=== PATIENT | female | born 1935 | race Caucasian/White ===

== ENCOUNTER 2019-08-13 08:31 | Outpatient (CLI) | payer MEDICARE, SELFPAY ==
[2019-08-13 09:20] LABS: Hematocrit 39.7 % (35.0-42.0); Hemoglobin 12.7 g/dL (11.7-13.8); Mean Corpuscular Hemoglobin 27.9 pg (27.0-31.0); Mean Corpuscular Volume 87.3 fL (78.0-102.0); Mean Platelet Volume 10.7 fl (9.2-11.8); Platelet Count Result 221 K/mm3 (150-420); Red Blood Count 4.55 M/mm3 (4.20-5.40); Red Cell Distribution Width 13.9 % (11.6-14.4); White Blood Count 6.6 K/mm3 (4.8-10.8)
[2019-08-13 10:19] LABS: Alanine Aminotransferase 24 U/L (14-59); Albumin Level 3.7 g/dL (3.4-5.0); Alkaline Phosphatase 98 U/L (46-116); Aspartate Amino Transferase 23 U/L (15-37); Bilirubin,Total 0.3 mg/dL (0.00-1.00); Blood Urea Nitrogen 14 mg/dL (7-18); Calcium 8.9 mg/dL (8.5-10.1); Carbon Dioxide 25 mmol/L (21-32); Chloride 106 mmol/L (98-108); Cholesterol 127 mg/dL (0-200); Estimated Glomerular Filt Rate 55; Glucose 90 mg/dL (70-99); HDL Direct 65 mg/dL (40-60); LDL Cholesterol Calculated 49 mg/dL (<130); Osmolality Calculated 296 mOsm/kg (285-295); Sodium 143 mmol/L (136-145); Thyroid Stimulating Hormone 2.13 uIU/mL (0.36-3.74); Total Protein 7.3 g/dL (6.4-8.2); Triglycerides 64 mg/dL (0-150); Vitamin B12 275 pg/mL (193-986)
[2019-08-15 18:13] LABS: Vitamin D 25 Hydroxy 16 ng/mL (30-100)
== END 2019-08-13 08:32 | disposition home or self-care (01) ==
LOC: CHSLAB 08:40
PROVIDERS: PCP Nurse Practitioner Family; Visit Provider Nurse Practitioner Family
DX: E78.00 Pure hypercholesterolemia, unspecified (principal); R53.83 Other fatigue; I10 Essential (primary) hypertension; E55.9 Vitamin D deficiency, unspecified
CPT/HCPCS: 36415; 80053; 80061; 82306; 82607; 84443; 85027

== ENCOUNTER 2020-11-10 08:16 | Outpatient (CLI) | payer MEDICARE, SELFPAY ==
[2020-11-10 08:27] LABS: Hemoglobin 12.9 g/dL (11.7-13.8); Mean Corpuscular HGB Conc 32.3 g/dL (32.0-36.0); Mean Corpuscular Hemoglobin 28.4 pg (27.0-31.0); Mean Corpuscular Volume 88.1 fL (78.0-102.0); Mean Platelet Volume 9.9 fl (9.2-11.8); Platelet Count Result 214 K/mm3 (150-420); Red Blood Count 4.54 M/mm3 (4.20-5.40); Red Cell Distribution Width 14.3 % (11.6-14.4); White Blood Count 7.1 K/mm3 (4.8-10.8)
[2020-11-10 09:20] LABS: Alanine Aminotransferase 30 U/L (14-59); Albumin Level 3.6 g/dL (3.4-5.0); Alkaline Phosphatase 98 U/L (46-116); Anion Gap 7 mmol/L (8-16); Aspartate Amino Transferase 21 U/L (15-37); Bilirubin,Total 0.4 mg/dL (0.00-1.00); Blood Urea Nitrogen 19 mg/dL (7-18); Calcium 8.9 mg/dL (8.5-10.1); Carbon Dioxide 30 mmol/L (21-32); Chloride 105 mmol/L (98-108); Cholesterol 137 mg/dL (0-200); Estimated Glomerular Filt Rate 54; Glucose 102 mg/dL (70-99); HDL Direct 77 mg/dL (40-60); LDL Cholesterol Calculated 47 mg/dL (<130); Osmolality Calculated 296 mOsm/kg (285-295); Potassium 4.2 mmol/L (3.5-5.1); Sodium 142 mmol/L (136-145); Total Protein 6.9 g/dL (6.4-8.2); Triglycerides 65 mg/dL (0-150)
[2020-11-13 13:49] LABS: Vitamin D 25 Hydroxy 34 ng/mL (30-100)
== END 2020-11-10 08:17 | disposition home or self-care (01) ==
LOC: CHSLAB 08:19
PROVIDERS: PCP Family Medicine; Visit Provider Nurse Practitioner Family
DX: E55.9 Vitamin D deficiency, unspecified (principal); E78.00 Pure hypercholesterolemia, unspecified; I10 Essential (primary) hypertension
CPT/HCPCS: 36415; 80053; 80061; 82306; 85027

== ENCOUNTER 2021-10-22 13:44 | Outpatient (CLI) | payer MEDICARE, OTHER, SELFPAY ==
--- NOTE | ~2021-10-22 | XR_ITS ---
EXAMINATION: XR ankle RT min 3V DATE: 10/22/2021 14:10 INDICATION: Right ankle injury and pain and swelling. TECHNIQUE: 3 views of right ankle were obtained. COMPARISON: None. FINDINGS: There is an oblique fracture of distal fibula with medial aspect of the fracture line at th e level of the tibial plafond. The distal fracture fragment demonstrates 3 mm posterolateral displace ment. There is likely a fracture of the medial malleolus that is not well delineated. Joint spaces ar e normal. There is an enthesophyte at posterior aspect of calcaneal tuberosity. Ankle soft tissue swe lling is noted. IMPRESSION: 1. Bimalleolar ankle fracture. Reviewed, dictated and finalized at location B.
== END 2021-10-22 13:45 | disposition home or self-care (01) ==
LOC: CHSIMG 13:47
PROVIDERS: PCP Nurse Practitioner Family; Visit Provider Nurse Practitioner Family
DX: S93.401A Sprain of unspecified ligament of right ankle, initial encounter (principal)
CPT/HCPCS: 73610

== ENCOUNTER 2021-11-22 08:59 | Outpatient (CLI) | payer MEDICARE, OTHER, SELFPAY ==
--- NOTE | ~2021-11-22 | XR_ITS ---
EXAMINATION: XR ankle RT min 3V DATE: 11/22/2021 09:24 INDICATION: Follow-up right ankle fracture TECHNIQUE: Anteroposterior, oblique, mortise, and lateral views of the right ankle were obtained. COMPARISON: 10/26/2021 and 10/22/2021 FINDINGS: Unchanged 3 mm lateral displacement of an oblique fracture of the lateral malleolus. Subtle small luci unt of nonbridging callus formation along the proximal margin of the fracture. There is still readily discernible lucency along the fracture plane. Unchanged nondisplaced fracture extending transversely across the medial malleolus with minimal sclerosis along the margins of the still clearly discernibl e lucent fracture plane which is also consistent with early productive changes of healing. Unchanged prominent sclerosis at the medial side of the right talar dome. 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 Mild soft tissue swelling about the ankle. No ankle joint effusion. IMPRESSION: 1. Early healing of likely still ununited nondisplaced medial malleolar and minimally displaced later al malleolar fractures. 2. Unchanged sclerosis at the medial side of the talar dome which is of indeterminate etiology statis tically most likely either degenerative in etiology or sequela of old trauma. Reviewed, dictated and finalized at location B. IMPRESSION: 1. Early healing of likely still ununited nondisplaced medial malleolar and min imally displaced lateral malleolar fractures. 2. Unchanged sclerosis at the medial side of the talar dome which is of indeter minate etiology statistically most likely either degenerative in etiology or se quela of old trauma.
== END 2021-11-22 09:00 | disposition home or self-care (01) ==
LOC: CHSIMG 09:02
PROVIDERS: PCP Nurse Practitioner Family; Visit Provider Orthopaedic Surgery
DX: M25.571 Pain in right ankle and joints of right foot (principal); S82.54XD Nondisplaced fracture of medial malleolus of right tibia, subsequent encounter for closed fracture with routine healing; S82.61XD Displaced fracture of lateral malleolus of right fibula, subsequent encounter for closed fracture with routine healing
CPT/HCPCS: 73610

== ENCOUNTER 2021-12-13 12:50 | Outpatient (RCR) | payer MEDICARE, OTHER, SELFPAY ==
--- NOTE | 2021-12-13 14:12 | PTOPEVAL ---
Thank you for referring Leonela Carrero to [facility].? The patient is scheduled to be seen for therapy? __3__x/week for 9 visits. Please review, sign, date and return this plan of care OLIVE. I agree with and certify that the following plan of care is medically necessary. Referring Physician Date Admitting Provider: Attending Provider: Waqas Glez MD Referring Provider: *PT Outpatient Evaluation Start: 12/13/21 13:12 Freq: Status: Active Protocol: Document 12/13/21 13:12 KRISTI (Rec: 12/13/21 14:11 [email or web address]) Therapy Assessment Status Assessment Status Assessment Status Evaluation Evaluation Information Problem Diagnosis right bimalleolar fx of the ankle Onset 10/28/21 Subjective Information Pt. reports she was getting in Query Text:As Reported By Patient/ her daughters jeleilani. She Family reports lost her balance attempting to get into the jeep and injured the right foot. Pt. reports she was in a boot with no weight for a few weeks. She is currently in a protective shoe. She states that she has not worn a regular shoe on the right foot, but is concerned that she cannot due to swelling. She reports that she has a constant tenderness in the right ankle. She reports that her goal is to be able to wear a regular shoe and walk normal. Prior Level of Function Activity Level (Last 3 Months) Occupation retired Hand Dominance Right Activity of Daily Living Ability Independent Indoor/Home Mobility Independent Community Mobility Independent Stairs Ability Independent Functional Cognition (Planning, Shopping Independent , Taking Medications) Cooking Yes Cleaning Yes Laundry Yes Shopping Yes Driving Yes Pain Assessment Timing of Pain Assessment Timing of Pain Assessment Pre-Treatment Pain Scale Pain Scale Used Numeric (1 - 10) Self Report Pain Assessment Right Ankle(s) Reported Pain Level 6 Pain Score Pain Score 6: Self Report Interventions Used Interventions Used By Clinicians Exercise Lower Extremity Range o
--- NOTE | 2022-01-07 16:13 | PTOPEVAL ---
Thank you for referring Leonela Carrero to [facility].? The patient is scheduled to be seen for therapy? ____x/week for ___ weeks. Please review, sign, date and return this plan of care OLIVE. I agree with and certify that the following plan of care is medically necessary. Referring Physician Date Admitting Provider: Attending Provider: Waqas Glez MD Referring Provider: *PT Outpatient Evaluation Start: 12/13/21 13:12 Freq: Status: Active Protocol: Document 01/07/22 16:04 MOJGAN (Rec: 01/07/22 16:13 [email or web address]) Therapy Assessment Status Assessment Status Assessment Status Discharge Evaluation Information Problem Diagnosis right bimalleolar fx of the ankle Onset 10/28/21 Additional Evaluation Detail LEFS = 35% functionally declined Subjective Information patient reports she feels Query Text:As Reported By Patient/ good this date. she reports Family no pain in the R ankle. she reports she is walking without a limp, and is back to all prior level activities. she reports she is compliant with her HEP at home. Pain Assessment Timing of Pain Assessment Timing of Pain Assessment Assessment Self Report Self Report Pain Level 0 Pain Score Pain Score 0: Self Report Lower Extremity Range of Motion General Lower Extremity Range of Motion Gross Lower Extremity Range of Motion R ankle DF arom = 10 degrees Comments R ankle PF arom = 40 degrees R ankle INV arom = 20 degrees R ankle EV arom = 6 degrees Lower Extremity Muscle Strength Testing General Lower Extremity Strength Gross Lower Extremity Strength R ankle strength = 4+/5 overall Gait Assessment Gait Pattern Assessment Gait Pattern No Deviations/Normal Stair Climbing Assessment Stair Climbing Assessment Stair Climbing Comments reciprocal gait mechanics up and down steps General Exercise General Exercises Exercise Description Ther ex Query Text:Record Sets, Reps, -standing gastroc stretch x 3 Resistance, and Position minutes -standing hip abd x 25 ea juan m -standing hip ext x 25 ea juan m -PROM ankle all planes x5 min -re-evaluation 5 minutes Ther act -ambulation 1200ft -ambualtion up and down steps 1 flight
== END 2021-12-31 17:00 | disposition home or self-care (01) ==
LOC: CHSPT 12:50
PROVIDERS: Visit Provider Orthopaedic Surgery
DX: S82.841D Displaced bimalleolar fracture of right lower leg, subsequent encounter for closed fracture with routine healing (principal); S93.401D Sprain of unspecified ligament of right ankle, subsequent encounter
CPT/HCPCS: 97016; 97110; 97112; 97140; 97161; 97530

== ENCOUNTER 2021-12-20 08:52 | Outpatient (CLI) | payer MEDICARE, OTHER, SELFPAY ==
--- NOTE | ~2021-12-20 | XR_ITS ---
EXAMINATION: XR ankle RT min 3V INDICATION: Right ankle fracture follow-up TECHNIQUE: Four views of the right ankle are obtained. COMPARISON: 11/22/2021 FINDINGS: Again seen is an oblique fracture of the distal fibula extending to the level of the tibia. Minimal calcified callus is seen at the fracture site. The distal fracture fragment remains laterall y displaced by approximately 3 mm. There is a transverse fracture of the medial malleolus with minima l calcified callus formation. No new fracture is identified. Subtle sclerosis of the lateral talar do me is again noted and unchanged. There is moderate osteoarthritis of the foot and ankle. Calcified at herosclerosis is noted. IMPRESSION: 1. Oblique fracture of the distal fibula with slight increase in calcified callus. 2. Transverse fracture of the medial malleolus with increase in calcified callus. Reviewed, dictated and finalized at location A. IMPRESSION: 1. Oblique fracture of the distal fibula with slight increase in calcified call us. 2. Transverse fracture of the medial malleolus with increase in calcified callu s.
== END 2021-12-20 08:53 | disposition home or self-care (01) ==
LOC: CHSIMG 08:55
PROVIDERS: PCP Family Medicine; Visit Provider Orthopaedic Surgery
DX: M25.571 Pain in right ankle and joints of right foot (principal)
CPT/HCPCS: 73610

== ENCOUNTER 2022-01-17 08:16 | Outpatient (CLI) | payer MEDICARE, OTHER, SELFPAY ==
--- NOTE | ~2022-01-17 | XR_ITS ---
XR ankle RT min 3V DATE: 01/17/2022 08:47 INDICATION: Fracture follow-up TECHNIQUE: 3 views COMPARISON: 12/20/2021, 10/22/2021 right ankle FINDINGS: No interval change in position or alignment at the bimalleolar right ankle fracture since . The fracture lines are still evident, there is limited interval new bone formation. IMPRESSION: No significant change in position or alignment of bimalleolar ankle fracture Reviewed, dictated and finalized at location B.
== END 2022-01-17 08:17 | disposition home or self-care (01) ==
LOC: CHSIMG 08:19
PROVIDERS: PCP Family Medicine; Visit Provider Orthopaedic Surgery
DX: M25.571 Pain in right ankle and joints of right foot (principal); S82.841D Displaced bimalleolar fracture of right lower leg, subsequent encounter for closed fracture with routine healing
CPT/HCPCS: 73610

== ENCOUNTER 2022-05-17 22:03 | Emergency (ER) | payer MEDICARE, OTHER, SELFPAY ==
[2022-05-17] VITALS (9 sets, daily range): BP systolic 171–187; BP diastolic 57–73; PULSE 66–87; RESP 16–24; TEMP 36.8; O2SAT 97–100
--- NOTE | ~2022-05-17 | XR_ITS ---
EXAMINATION: XR chest 1V portable INDICATION: Cough and shortness of breath TECHNIQUE: Portable AP chest at 2043 hours COMPARISON: 03/24/2015 FINDINGS: There are minimal airspace opacities of the left lung base. A calcified right lung nodules consistent with old granulomatous disease. No pleural effusion or pneumothorax. The cardiomediastinal silhouette is normal. IMPRESSION: 1. Minimal left basilar airspace opacity which may be infectious or inflammatory. Recommend followup radiographs in 10-14 days after appropriate therapy to evaluate for improvement/resolution. Reviewed, dictated and finalized at location F. TURE METER OPERATOR IMPRESSION: 1. Minimal left basilar airspace opacity which may be infectious or inflammator y. Recommend followup radiographs in 10-14 days after appropriate therapy to ev aluate for improvement/resolution.
--- NOTE | 2022-05-17 22:12 | ED.SOB ---
HPI - SOB/Dyspnea General Chief Complaint: Shortness of Breath/Dyspnea Stated Complaint: trouble breathing Time Seen by Provider: 05/17/22 22:10 Source: patient Mode of arrival: ambulatory History of Present Illness HPI Narrative: 86-year-old female with a history smoking, hypertension, dyslipidemia, Raynaud's presents to the ER 1 day history of -- shortness of breath -- nonproductive cough -- chest tightness and wheezing Patient has been COVID and influenza vaccinated. MD elicited complaint: shortness of breath and cough Onset (ago): day(s) ( symptoms started today.) Exacerbating factors: nothing Relieving factors: nothing Associated symptoms: cough, wheezing and chest congestion Treatment prior to arrival: none Related Data Home oxygen amount: none Home Medications Medication Instructions Recorded Confirmed aspirin 81 mg tablet,delayed 81 mg PO DAILY 08/07/19 05/17/22 release (Adult Aspirin Regimen) fexofenadine 180 mg tablet 180 mg PO DAILY 11/03/20 05/17/22 (Juana Allergy) multivitamin with minerals 1 tablet PO DAILY 11/03/20 05/17/22 (Hair,Skin and Nails tablet) Allergies Allergy/AdvReac Type Severity Reaction Status Date / Time ethinyl estradiol Allergy Intermediate Unknown Verified 05/17/22 22:16 [Seasonale (91)] levonorgestrel Allergy Intermediate Unknown Verified 05/17/22 22:16 [Seasonale (91)] Review of Systems Review of Systems: All systems reviewed & are unremarkable except as noted in HPI and below Constitutional: Constitutional: Reports as per HPI and Reports no additional constitutional complaints Eyes: Eyes: Reports as per HPI and Reports no additional eye complaints ENT: Reports system reviewed and no additional complaints, except as documented and Reports as per HPI Cardiovascular: Cardiovascular: Reports as per HPI and Reports no additional cardiovascular complaints Respiratory: Respiratory: Reports as per HPI, Reports no additional respiratory complaints, Reports cough, Reports dyspnea and Reports wheezing Gastrointestinal: Gastrointestinal: Reports as per HPI and Reports no additional gastrointestinal complaints Genitourinary: Genitourinary: Reports no additional female genitourinary complaints Musculoskeletal: Musculoskeletal: Reports no additional musculoskeletal complaints and Reports as per HPI Integumentary/Breasts: Skin/Breast: Reports system reviewed and no additional complaints, except as docu and Reports as per HPI Neurologic: Reports system reviewed and no additional complaints, except as documented and Reports as per HPI Psychiatric: Psychiatric: Reports no additional psychiatric complaints and Reports as per HPI Endocrine: Endocrine: Reports no additional endocrine complaints and Reports as per HPI Hematologic/Lymphatic: Hematologic/Lymphatic: Reports no additional hematologic/lymphatic complaints and Reports as per HPI Allergic/Immunologic: Allergic/Immunologic: Reports no additional allergic/immunologic complaints and Reports as per HPI FOR[facility]LY [facility], [facility] Past Medical History Medical History Age-related cataract of both eyes Surgically removed with lens placement Hypercholesterolemia Hypertension Nicotine dependence Ovarian cyst Surgically removed Raynauds phenomenon Seasonal allergies Vitamin D deficiency Surgical History Surgical History History of cataract removal with insertion of prosthetic lens (~2014) History of removal of ovarian cyst Family History Family History Father Hypertension Social History Social History Smoking packs per day: 0.5 Smoking cigarettes per day: 10.0 Years smoked: 65 Smoking pack-years: 32.50 Smoking status: Current every day smoker Tobacco type: cigarettes Alcohol intake: current
--- NOTE | 2022-05-17 22:19 | ECG_ITS ---
Measurements Intervals [place] Rate: 66 P: 60 ND: 130 QRS: 62 QRSD: 68 T: 96 QT: 413 QTc: 433 Interpretive Statements SINUS RHYTHM NONSPECIFIC ST & T-WAVE ABNORMALITY- DIFFUSE LEADS BASELINE ARTIFACT- I, II, III, AVR, AVL, AVF, V1-V6 BORDERLINE ECG NO PREVIOUS ECG AVAILABLE FOR COMPARISON Electronically Signed On 05-18-2022 5:52:15 RACK CARRIER by Fernando Hickey D.O.
[2022-05-17] MEDS: IPRATROPIUM 0.5 MG/ALBUTEROL SULFATE 2.5 MG AMPUL.NEB 3 ML INHALATION (22:35)
[2022-05-17 22:44] LABS: Basophils Absolute Auto 0.08 K/mm3 (0.00-0.10); Basophils Percent Auto 1.1 % (0.0-1.0); Eosinophils Absolute Auto 0.13 K/mm3 (0.02-0.50); Eosinophils Percent Auto 1.8 % (1.0-6.0); Hematocrit 27.7 % (35.0-42.0); Hemoglobin 8.3 g/dL (11.7-13.8); Immature Granulocyte Absolute 0.03 K/mm3 (0.00-0.00); Immature Granulocyte Percent A 0.4 % (0.0-0.0); Lymphocytes Absolute Auto 2.14 K/mm3 (1.10-4.50); Lymphocytes Percent Auto 29.9 % (18.0-42.0); Mean Corpuscular Hemoglobin 23.4 pg (27.0-31.0); Mean Corpuscular Volume 78.2 fL (78.0-102.0); Mean Platelet Volume 9.3 fl (9.2-11.8); Monocytes Absolute Auto 0.88 K/mm3 (0.10-0.90); Monocytes Percent Auto 12.3 % (2.0-11.0); Neutrophils Absolute Auto 3.9 K/mm3 (1.7-7.2); Neutrophils Percent Auto 54.5 % (50.0-70.0); Platelet Count Result 265 K/mm3 (150-420); Red Blood Count 3.54 M/mm3 (4.20-5.40); Red Cell Distribution Width 17.8 % (11.6-14.4); White Blood Count 7.2 K/mm3 (4.8-10.8)
--- NOTE | 2022-05-17 22:45 | PC.NURSE ---
Educated pt on need for a urine sample. Pt states she does not need to urinate at this time. RN places a bedside commode and educates pt to hit the call light when she has to urinate. Pt also states she feels like she can take a deep breath after her breathing treatment.
[2022-05-17 22:56] LABS: INR 1.1; Prothrombin Time 12.2 Seconds (9.50-12.10)
[2022-05-17 23:04] LABS: Lactic Acid Reflex 1.9 mmol/L (0.4-2.0)
[2022-05-17 23:05] LABS: Alanine Aminotransferase 37 U/L (14-59); Albumin Level 2.9 g/dL (3.4-5.0); Alkaline Phosphatase 107 U/L (46-116); Anion Gap 9 mmol/L (8-16); Aspartate Amino Transferase 42 U/L (15-37); Bilirubin,Total 0.3 mg/dL (0.00-1.00); Blood Urea Nitrogen 19 mg/dL (7-18); Calcium 8.2 mg/dL (8.5-10.1); Carbon Dioxide 28 mmol/L (21-32); Chloride 109 mmol/L (98-108); Estimated CRCL calculation 29 ml/min; Estimated Glomerular Filt Rate 50; Glucose 109 mg/dL (70-99); NT Pro B Type Natriuretic Pept 1359 pg/mL (0-450); Osmolality Calculated 305 mOsm/kg (285-295); Potassium 3.2 mmol/L (3.5-5.1); Sodium 146 mmol/L (136-145); Total Protein 6.6 g/dL (6.4-8.2); Troponin I 16.6 ng/L (0.00-60.4)
[2022-05-17 23:20] LABS: Influenza A QL RT-PCR Negative (Negative); Influenza B QL RT-PCR Negative (Negative); SARS-CoV-2 RNA PCR Negative (Negative)
[2022-05-17 23:22] LABS: RSV RNA, RT-PCR Negative (Negative)
[2022-05-17 23:34] LABS: Appearance Urine Clear (Clear); Bilirubin Urine Negative (Negative); Blood Urine 2+ (Negative); Glucose Urine UA Negative (Negative); Ketones Urine Negative (Negative); Leukocyte Esterase Ur 1+ (Negative); Nitrate Urine Negative (Negative); Protein Urine Negative (Negative); Specific Grav Ur 1.015 (1.010-1.020); Urobilinogen Urine 0.2 mg/dL (0.2-1.0)
[2022-05-17 23:41] LABS: Add Urine Microscopic? YES; Bacteria Urine Trace /hpf; Color Urine Light Yellow (Yellow); Squamous Epithelial Cell Urine Rare /hpf (Few)
[2022-05-17] MEDS: AZITHROMYCIN 250 MG TABLET 500 MG PO (23:45)
[2022-05-17] MEDS: ALBUTEROL SULFATE (*SP) INHALER 2 PUFF INHALATION (23:55)
[2022-05-18 00:02] VITALS: BP 161/60; PULSE 64; RESP 18; TEMP 36.5; O2SAT 96
== END 2022-05-18 00:05 | disposition home or self-care (01) ==
PROVIDERS: Emergency Provider Internal Medicine Critical Care Medicine; PCP Family Medicine
DX: J44.1 Chronic obstructive pulmonary disease with (acute) exacerbation (principal); N18.31 Chronic kidney disease, stage 3a; D64.9 Anemia, unspecified; Z20.822 Contact with and (suspected) exposure to COVID-19; E78.00 Pure hypercholesterolemia, unspecified; I10 Essential (primary) hypertension; E55.9 Vitamin D deficiency, unspecified; F17.200 Nicotine dependence, unspecified, uncomplicated
CPT/HCPCS: 36415; 71045; 80053; 81001; 83605; 83880; 84484; 85025; 85610; 87637; 93005; 94640; 99284; A9270

== ENCOUNTER 2022-09-29 12:11 | Outpatient (CLI) | payer MEDICARE, OTHER, SELFPAY ==
--- NOTE | ~2022-09-29 | XR_ITS ---
XR chest 2V DATE: 09/29/2022 12:34 INDICATION: Shortness of breath for one month. History of bronchitis. TECHNIQUE: PA and lateral views COMPARISON: 05/17/2022 portable AP chest FINDINGS: Normal heart size. Aortic arch calcification. No hilar or mediastinal enlargement. There is old pulmonary granulomatous disease. No pulmonary infiltrate or consolidation, pleural effus ion or pulmonary vascular congestion or pneumothorax is detected. Diffuse osteopenia. There is extensive abdominal aortic calcification, without apparent aneurysm IMPRESSION: No active cardiopulmonary disease Abdominal and thoracic aortic atherosclerosis Reviewed, dictated and finalized at location L.
[2022-09-29 12:23] LABS: Hematocrit 26.7 % (35.0-42.0); Hemoglobin 7.3 g/dL (11.7-13.8); Mean Corpuscular HGB Conc 27.3 g/dL (32.0-36.0); Mean Corpuscular Hemoglobin 17.5 pg (27.0-31.0); Mean Platelet Volume 9.5 fl (9.2-11.8); Platelet Count Result 348 K/mm3 (150-420); Red Blood Count 4.17 M/mm3 (4.20-5.40); Red Cell Distribution Width 19.9 % (11.6-14.4); White Blood Count 7.4 K/mm3 (4.8-10.8)
[2022-09-29 12:51] LABS: Alanine Aminotransferase 18 U/L (14-59); Albumin Level 3.2 g/dL (3.4-5.0); Alkaline Phosphatase 137 U/L (46-116); Anion Gap 12 mmol/L (8-16); Aspartate Amino Transferase 22 U/L (15-37); Bilirubin,Total 0.3 mg/dL (0.00-1.00); Blood Urea Nitrogen 17 mg/dL (7-18); Calcium 8.6 mg/dL (8.5-10.1); Carbon Dioxide 27 mmol/L (21-32); Chloride 106 mmol/L (98-108); Estimated Glomerular Filt Rate > 60; Glucose 95 mg/dL (70-99); NT Pro B Type Natriuretic Pept 1274 pg/mL (0-450); Osmolality Calculated 301 mOsm/kg (285-295); Sodium 145 mmol/L (136-145); Total Protein 7.4 g/dL (6.4-8.2); Troponin I 26.7 ng/L (0.00-60.4)
== END 2022-09-29 12:12 | disposition home or self-care (01) ==
LOC: CHSLAB 12:13
PROVIDERS: PCP Family Medicine; Visit Provider Family Medicine
DX: R06.00 Dyspnea, unspecified (principal); I70.0 Atherosclerosis of aorta
CPT/HCPCS: 36415; 71046; 80053; 83880; 84484; 85027

== ENCOUNTER 2022-10-01 10:03 | Outpatient (CLI) | payer MEDICARE, OTHER, SELFPAY ==
[2022-10-01 10:20] LABS: Occult Blood Negative (Negative)
== END 2022-10-01 10:04 | disposition home or self-care (01) ==
LOC: CHSLAB 10:04
PROVIDERS: PCP Family Medicine; Visit Provider Family Medicine
DX: R19.7 Diarrhea, unspecified (principal)
CPT/HCPCS: 82272

== ENCOUNTER 2022-10-04 10:16 | Outpatient (CLI) | payer MEDICARE, OTHER, SELFPAY ==
[2022-10-04 10:31] LABS: Basophils Absolute Auto 0.12 K/mm3 (0.00-0.10); Basophils Percent Auto 1.6 % (0.0-1.0); Eosinophils Absolute Auto 0.16 K/mm3 (0.02-0.50); Eosinophils Percent Auto 2.1 % (1.0-6.0); Hematocrit 28.4 % (35.0-42.0); Hemoglobin 7.6 g/dL (11.7-13.8); Immature Granulocyte Absolute 0.04 K/mm3 (0.00-0.00); Immature Granulocyte Percent A 0.5 % (0.0-0.0); Lymphocytes Absolute Auto 1.54 K/mm3 (1.10-4.50); Lymphocytes Percent Auto 20.4 % (18.0-42.0); Mean Corpuscular HGB Conc 26.8 g/dL (32.0-36.0); Mean Corpuscular Hemoglobin 17.6 pg (27.0-31.0); Mean Corpuscular Volume 65.9 fL (78.0-102.0); Mean Platelet Volume 9.3 fl (9.2-11.8); Monocytes Absolute Auto 0.79 K/mm3 (0.10-0.90); Monocytes Percent Auto 10.5 % (2.0-11.0); Neutrophils Absolute Auto 4.9 K/mm3 (1.7-7.2); Neutrophils Percent Auto 64.9 % (50.0-70.0); Platelet Count Result 355 K/mm3 (150-420); Red Blood Count 4.31 M/mm3 (4.20-5.40); Red Cell Distribution Width 22.7 % (11.6-14.4); White Blood Count 7.5 K/mm3 (4.8-10.8)
[2022-10-04 10:49] LABS: Iron 109 ug/dL (50-170); Percent Iron Saturation 31 % (12-57)
--- NOTE | 2022-10-05 11:56 | WPDPFTINT ---
PFT Procedure Performed PFT Procedure Performed Spirometry with Pre/Post Bronchodilator Plethysmography (Lung Vol) Diffusing Cap (DLCO) Flow Vol Loop PFT Interpretation DOS: 10/04/2022 REQUESTING: Dr Liz REASON FOR TESTING: Dyspnea PULMONARY FUNCTION TESTS Spirometry: Pre bronchodilator FEV1 is 1.34 L, 84%, normal. Pre bronchodilator FVC is 1.94 L, 83%. The FEV1/ FVC ratio is 69% which is borderline low. After bronchodilator administration there is a 5% increase in the FEV1, 1.41 L and there was a 6% increase in the FVC, 2.06 L. the FEV1/ FVC ratio after bronchodilators also 69%. Lung volumes: Total lung capacity is 4.6 L, 102% predicted, normal. Residual volume is 2.60 L, 131% predicted. This is consistent with mild air trapping. RV/TLC is 56%, elevated. Airway resistance 341%. Diffusion: DLCO is 10.1, 65% predicted. DLCO/VA is 2.41, 75%, normal. Flow volume loop: There is coving of the expiratory limb consistent with airflow obstruction. IMPRESSION: This study shows borderline mild obstructive ventilatory impairment without response to bronchodilator, mild air trapping and normal diffusion when corrected for alveolar volume. Lack of response to bronchodilator should not preclude use if clinically indicated. There are no prior studies for comparison. Macy Hardin MD
== END 2022-10-04 10:17 | disposition home or self-care (01) ==
LOC: CHSLAB 10:20
PROVIDERS: PCP Family Medicine; Visit Provider Nurse Practitioner Family
DX: D50.9 Iron deficiency anemia, unspecified (principal); R06.00 Dyspnea, unspecified; R94.2 Abnormal results of pulmonary function studies
CPT/HCPCS: 36415; 83540; 83550; 85025; 94060; 94726; 94729

== ENCOUNTER 2022-10-07 12:16 | Outpatient (CLI) | payer MEDICARE, OTHER, SELFPAY ==
--- NOTE | 2022-10-07 12:22 | ECHO_ITS ---
Patient Info Name: Leonela Carrero Age: 86 years : 1935 Gender: Female Ht: 63 in Wt: 128 lbs BSA: 1.61 m2 HR: 64 bpm BP: 164 / 68 mmHg Technical Quality: Good Exam Date: 10/07/2022 12:16 PM Exam Location: [facility] Patient Status: Outpatient Admit Date: 10/07/2022 Staff Ordering Physician: Cisco Liz DO Business Development Director: Vijay Bautista RDCS, RT Attending Provider: Cisco Liz DO Referring Physician: Shalonda PRESSLEY; Exam Type: CA echo doppler color flow Study Info Indications R06.00 - Dyspnea, unspecified Complete two-dimensional, color flow and Doppler transthoracic echocardiogram is performed. Strain analysis performed. Summary 1. Complete two-dimensional, color flow and Doppler transthoracic echocardiogram is performed. 2. Left ventricular chamber dimension is normal. 3. Left ventricular systolic function is normal, estimated at 60-65%. 4. There is mild concentric increased left ventricular wall thickness. 5. The left ventricular diastolic function is grade I diastolic dysfunction. 6. E/e' 16 is elevated. 7. Global longitudinal strain is normal at -20.4%. 8. Left atrial chamber dimension is mildly enlarged. 9. There is moderate aortic valve sclerosis. 10. There is mild aortic valve stenosis with a peak velocity of 180 cm/s, mean gradient of 7 mmHg, and aortic valve area of 1.5 cm2. 11. There is mild to moderate mitral valve regurgitation. 12. No pulmonary hypertension, estimated pulmonary arterial systolic pressure is 33 mmHg. Left Ventricle Global longitudinal strain is normal at -20.4%. E/e' 16 is elevated. Left ventricular chamber dimension is normal. Left ventricular systolic function is normal, estimated at 60-65%. There is mild concentric increased left ventricular wall thickness. The left ventricular diastolic function is grade I diastolic dysfunction. Right Ventricle Right ventricular systolic function is normal and with normal TAPSE 2.2 cm. Right ventricular chamber dimension is normal. Left Atria Left atrial chamber dimension is mildly enlarged. Right Atria Right atrial chamber dimension is normal. Aortic Valve The aortic valve is trileaflet. There is moderate aortic valve sclerosis. There is mild aortic valve stenosis with a peak velocity of 180 cm/s, mean gradient of 7 mmHg, and aortic valve area of 1.5 cm2. There is no aortic valve regurgitation. Pulmonic Valve There is no pulmonic regurgitation. Mitral Valve There is no mitral valve stenosis. There is mild to moderate mitral valve regurgitation. Tricuspid Valve There is no tricuspid valve regurgitation. No pulmonary hypertension, estimated pulmonary arterial systolic pressure is 33 mmHg. Pericardium/Pleural There is no pericardial effusion. Inferior Vena Cava Normal inferior vena cava with >50% collapse upon inspiration consistent with normal right atrial pressure, 5 mmHg. Aorta The aortic root size at the sinus of Valsalva is normal. Left Ventricular Outflow Tract Name Value Normal LVOT 2D LVOT Diameter 1.9 cm LVOT Doppler LVOT Peak Velocity 104 cm/s LVO
== END 2022-10-07 12:17 | disposition home or self-care (01) ==
LOC: CHSIMG 12:18
PROVIDERS: PCP Family Medicine; Visit Provider Family Medicine
DX: R06.00 Dyspnea, unspecified (principal); I08.0 Rheumatic disorders of both mitral and aortic valves
CPT/HCPCS: 93306

== ENCOUNTER 2022-11-22 14:22 | Outpatient (CLI) | payer MEDICARE, OTHER, SELFPAY ==
[2022-11-22 14:52] LABS: Basophils Absolute Auto 0.1 K/mm3 (0.0-0.1); Basophils Percent Auto 1.2 % (0.2-1.2); Eosinophils Absolute Auto 0.1 K/mm3 (0-0.3); Eosinophils Percent Auto 1.7 % (0-4.4); Hematocrit 39.4 % (37.0-47.0); Hemoglobin 12.2 g/dL (12.0-15.0); Immature Granulocyte Absolute 0.03 K/mm3 (0.00-0.031); Immature Granulocyte Percent A 0.4 % (0-0.5); Immature Platelet Fraction Pct 4.3 % (0.9-11.2); Lymphocytes Absolute Auto 1.62 K/mm3 (0.9-3.2); Lymphocytes Percent Auto 21.7 % (18.3-44.2); Mean Corpuscular Hemoglobin 24.9 pg (26-34); Mean Corpuscular Volume 80.6 fl (80-100); Mean Platelet Volume 10.3 fl (7.4-10.4); Monocytes Absolute Auto 0.7 K/mm3 (0.1-0.6); Monocytes Percent Auto 9.4 % (2.6-8.5); Neutrophils Absolute Auto 4.9 K/mm3 (1.3-6.7); Neutrophils Percent Auto 65.6 % (45.5-73.1); Platelet Count Result 253 k/mm3 (150-375); Red Blood Count 4.89 M/mm3 (4.2-5.4); White Blood Count 7.5 K/mm3 (4.5-10.0)
[2022-11-22 14:54] LABS: Anisocytosis 1+ (NORMAL); Ovalocytes 1+ (NORMAL); Platelet Estimate Adequate (Adequate); Schistocytes None Seen (NORMAL)
[2022-11-22 14:55] LABS: Hypochromasia 1+ (NORMAL); Poikilocytosis 1+ (NORMAL)
[2022-11-22 16:27] LABS: Iron 91 ug/dL (37-170)
[2022-11-22 16:29] LABS: Alanine Aminotransferase 29 U/L (6-35); Albumin Level 4.4 g/dL (3.5-5.1); Alkaline Phosphatase 112 U/L (38-126); Anion Gap 8 mmol/L (8-16); Aspartate Amino Transferase 41 U/L (14-36); Bilirubin,Total 0.3 mg/dL (0.2-1.3); Blood Urea Nitrogen 19 mg/dL (7-17); Carbon Dioxide 26 mmol/L (22-30); Chloride 105 mmol/L (98-107); Estimated Glomerular Filt Rate > 60; Glucose 100 mg/dL (65-110); Lactate Dehydrogenase 223 U/L (120-246); Potassium 3.8 mmol/L (3.4-5.0); Sodium 139 mmol/L (137-145)
[2022-11-22 16:36] LABS: Percent Iron Saturation 29 % (20-50)
[2022-11-22 19:24] LABS: Folic Acid 12.1 ng/mL (2.76->20)
[2022-11-26 06:27] LABS: Methylmalonic Acid 197 nmol/L (87-318)
[2022-11-29 16:35] LABS: Hemoglobin 12.3 g/dL (11.7-15.5); MCH 24.7 pg (27.0-33.0); MCV 78.5 fL (80.0-100.0); Red Blood Cell Count 4.97 Mill/uL (3.80-5.10)
== END 2022-11-22 14:23 | disposition home or self-care (01) ==
LOC: ANHLAB 14:25
PROVIDERS: PCP Family Medicine; Visit Provider Internal Medicine Hematology & Oncology
DX: D64.9 Anemia, unspecified (principal)
CPT/HCPCS: 36415; 80053; 82607; 82728; 82746; 83021; 83540; 83550; 83615; 83921; 84238; 85025; 85055

== ENCOUNTER 2023-04-10 13:16 | Outpatient (CLI) | payer MEDICARE, SELFPAY ==
[2023-04-10 13:35] LABS: Basophils Absolute Auto 0.08 K/mm3 (0.00-0.10); Basophils Percent Auto 1.1 % (0.0-1.0); Eosinophils Percent Auto 2.8 % (1.0-6.0); Hematocrit 39.5 % (35.0-42.0); Hemoglobin 13.1 g/dL (11.7-13.8); Immature Granulocyte Absolute 0.03 K/mm3 (0.00-0.00); Immature Granulocyte Percent A 0.4 % (0.0-0.0); Lymphocytes Absolute Auto 1.95 K/mm3 (1.10-4.50); Lymphocytes Percent Auto 26.8 % (18.0-42.0); Mean Corpuscular HGB Conc 33.2 g/dL (32.0-36.0); Mean Corpuscular Hemoglobin 31.1 pg (27.0-31.0); Mean Corpuscular Volume 93.8 fL (78.0-102.0); Mean Platelet Volume 10.5 fl (9.2-11.8); Monocytes Absolute Auto 0.94 K/mm3 (0.10-0.90); Monocytes Percent Auto 12.9 % (2.0-11.0); Neutrophils Absolute Auto 4.1 K/mm3 (1.7-7.2); Platelet Count Result 219 K/mm3 (150-420); Red Blood Count 4.21 M/mm3 (4.20-5.40); Red Cell Distribution Width 14.2 % (11.6-14.4); White Blood Count 7.3 K/mm3 (4.8-10.8)
[2023-04-10 14:31] LABS: Ferritin 44 ng/mL (8-252); Folic Acid 17.8 ng/mL (8.6->20); Iron 60 ug/dL (50-170); Percent Iron Saturation 21 % (12-57); Vitamin B12 973 pg/mL (193-986)
== END 2023-04-10 13:17 | disposition home or self-care (01) ==
LOC: CHSLAB 13:19
PROVIDERS: PCP Family Medicine; Visit Provider Internal Medicine Hematology & Oncology
DX: D64.9 Anemia, unspecified (principal)
CPT/HCPCS: 36415; 82607; 82728; 82746; 83540; 83550; 85025

== ENCOUNTER 2023-04-14 08:09 | Outpatient (CLI) | payer MEDICARE, OTHER, SELFPAY ==
--- NOTE | ~2023-04-14 | US_ITS ---
EXAMINATION: US arterial ankle brachial ind DATE: 04/14/2023 08:39 INDICATION: Peripheral vascular disease. TECHNIQUE: Segmental pressures and plethysmographic and Doppler waveforms of the brachial and lower e xtremity arteries were obtained. COMPARISON: None. FINDINGS: Right and left brachial artery pressures of 135 mm Hg and 137 mm Hg, respectively, are concordant (no rmal difference <= 30 mmHg). The right ankle-brachial index (DAVID) is 0.58 (normal >= 0.9-1.0). The right great toe-brachial index (TBI) is 0.18 (normal >= 0.65). Arterial Doppler waveforms are monophasic in posterior tibial artery not detected in dorsalis pedis. The left DAVID is 0.36. The left TBI is 0.26. Arterial Doppler waveforms are monophasic and posterior t ibial artery not detected in dorsalis pedis. IMPRESSION: 1. Moderately decreased right DAVID and severely decreased left DAVID, consistent with arterial occlusive disease. Reviewed, dictated and finalized at location A. IMPRESSION: 1. Moderately decreased right DAVID and severely decreased left DAVID, consistent w ith arterial occlusive disease.
== END 2023-04-14 08:10 | disposition home or self-care (01) ==
LOC: CHSIMG 08:12
PROVIDERS: PCP Family Medicine; Visit Provider Family Medicine
DX: I73.9 Peripheral vascular disease, unspecified (principal)
CPT/HCPCS: 93922

== ENCOUNTER 2023-09-05 15:34 | Outpatient (CLI) | payer MEDICARE, SELFPAY ==
[2023-09-05 16:34] LABS: Basophils Absolute Auto 0.07 K/mm3 (0.00-0.10); Basophils Percent Auto 0.9 % (0.0-1.0); Eosinophils Absolute Auto 0.22 K/mm3 (0.02-0.50); Eosinophils Percent Auto 2.8 % (1.0-6.0); Hemoglobin 13.8 g/dL (11.7-13.8); Immature Granulocyte Absolute 0.03 K/mm3 (0.00-0.00); Immature Granulocyte Percent A 0.4 % (0.0-0.0); Lymphocytes Absolute Auto 1.86 K/mm3 (1.10-4.50); Lymphocytes Percent Auto 23.4 % (18.0-42.0); Mean Corpuscular HGB Conc 32.9 g/dL (32.0-36.0); Mean Corpuscular Hemoglobin 29.2 pg (27.0-31.0); Mean Platelet Volume 10.9 fl (9.2-11.8); Monocytes Percent Auto 12.6 % (2.0-11.0); Neutrophils Absolute Auto 4.8 K/mm3 (1.7-7.2); Neutrophils Percent Auto 59.9 % (50.0-70.0); Platelet Count Result 223 K/mm3 (150-420); Red Blood Count 4.72 M/mm3 (4.20-5.40); Red Cell Distribution Width 13.2 % (11.6-14.4); White Blood Count 7.9 K/mm3 (4.8-10.8)
[2023-09-05 17:00] LABS: Alanine Aminotransferase 32 U/L (14-59); Alkaline Phosphatase 96 U/L (46-116); Anion Gap 10 mmol/L (8-16); Aspartate Amino Transferase 23 U/L (15-37); Bilirubin,Total 0.3 mg/dL (0.00-1.00); Blood Urea Nitrogen 25 mg/dL (7-18); Calcium 8.7 mg/dL (8.5-10.1); Carbon Dioxide 28 mmol/L (21-32); Chloride 101 mmol/L (98-108); Cholesterol 156 mg/dL (0-200); Estimated Glomerular Filt Rate 48; Glucose 85 mg/dL (70-99); HDL Direct 68 mg/dL (40-60); Iron 53 ug/dL (50-170); LDL Cholesterol Calculated 67 mg/dL (<130); Magnesium 2.1 mg/dL (1.8-2.4); Osmolality Calculated 291 mOsm/kg (285-295); Potassium 4.3 mmol/L (3.5-5.1); Sodium 139 mmol/L (136-145); Total Protein 7.6 g/dL (6.4-8.2); Triglycerides 103 mg/dL (0-150)
[2023-09-08 13:14] LABS: Vitamin D 25 Hydroxy 37 ng/mL (30-100)
== END 2023-09-05 15:35 | disposition home or self-care (01) ==
LOC: CHSLAB 15:36
PROVIDERS: PCP Family Medicine; Visit Provider Nurse Practitioner Family
DX: Z13.6 Encounter for screening for cardiovascular disorders (principal); E78.00 Pure hypercholesterolemia, unspecified; D64.9 Anemia, unspecified; D50.9 Iron deficiency anemia, unspecified; Z79.899 Other long term (current) drug therapy; E55.9 Vitamin D deficiency, unspecified; R42 Dizziness and giddiness
CPT/HCPCS: 36415; 80053; 80061; 82306; 83540; 83735; 85025

== ENCOUNTER 2023-10-11 09:32 | Outpatient (CLI) | payer MEDICARE, SELFPAY ==
[2023-10-11 09:49] LABS: Basophils Absolute Auto 0.11 K/mm3 (0.00-0.10); Basophils Percent Auto 1.5 % (0.0-1.0); Eosinophils Absolute Auto 0.25 K/mm3 (0.02-0.50); Eosinophils Percent Auto 3.4 % (1.0-6.0); Hemoglobin 12.3 g/dL (11.7-13.8); Immature Granulocyte Absolute 0.03 K/mm3 (0.00-0.00); Immature Granulocyte Percent A 0.4 % (0.0-0.0); Lymphocytes Absolute Auto 1.45 K/mm3 (1.10-4.50); Lymphocytes Percent Auto 19.8 % (18.0-42.0); Mean Corpuscular HGB Conc 31.5 g/dL (32-36); Mean Corpuscular Hemoglobin 28.8 pg (27.0-31.0); Mean Corpuscular Volume 91.3 fL (78.0-102.0); Mean Platelet Volume 10.1 fl (9.2-11.8); Monocytes Absolute Auto 0.97 K/mm3 (0.10-0.90); Monocytes Percent Auto 13.3 % (2.0-11.0); Neutrophils Absolute Auto 4.51 K/mm3 (1.70-7.20); Neutrophils Percent Auto 61.6 % (50.0-70.0); Platelet Count Result 221 K/mm3 (150-420); Red Blood Count 4.27 M/mm3 (4.20-5.40); Red Cell Distribution Width 14.6 % (11.6-14.4); White Blood Count 7.3 K/mm3 (4.8-10.8)
[2023-10-11 15:29] LABS: Anion Gap 9 mmol/L (4-12); Blood Urea Nitrogen 25 mg/dL (7-18); Calcium 8.2 mg/dL (8.5-10.1); Carbon Dioxide 25 mmol/L (21-32); Chloride 107 mmol/L (98-108); Estimated Glomerular Filt Rate 44; Ferritin 130 ng/mL (8-252); Glucose 96 mg/dL (70-99); Iron 101 ug/dL (50-170); Osmolality Calculated 296 mOsm/kg (285-295); Percent Iron Saturation 40 % (12-57); Potassium 4.2 mmol/L (3.5-5.1); Sodium 141 mmol/L (136-145); Vitamin B12 1671 pg/mL (193-986)
== END 2023-10-11 09:33 | disposition home or self-care (01) ==
LOC: CHSLAB 09:34
PROVIDERS: PCP Family Medicine; Visit Provider Internal Medicine Hematology & Oncology
DX: D64.9 Anemia, unspecified (principal)
CPT/HCPCS: 36415; 80048; 82607; 82728; 82746; 83540; 83550; 85025

== ENCOUNTER 2024-02-26 08:34 | Outpatient (CLI) | payer MEDICARE, OTHER, SELFPAY ==
--- NOTE | ~2024-02-26 | CT_ITS ---
Clinical Indication: Pulmonary nodule CT Scan of the Chest with Contrast: Technique: Contiguous sections were acquired throughout the chest after intravenous administration of 75 cc of Omnipaque 350. Dose reduction technique was used on this scan by utilizing automated exposu re control and iterative reconstruction technique. The dose-length product (DLP) was 125.11 mGy-cm. Findings: There is no evidence of any significant mediastinal, hilar or axillary lymphadenopathy. There is no f illing defect in the pulmonary arterial tree to suggest pulmonary embolus. There is no evidence of ao rtic dissection or aneurysm. There are atherosclerotic calcifications of the aorta. There is no evidence of pleural or pericardial effusion. Calcified right upper lobe granuloma versus calcified pleural plaque present. 2 mm probable right low er lobe calcified granuloma present. Focal groundglass opacity present peripherally in the left lower lobe (axial image 59). Images through the upper abdomen reveal [id number] hiatal hernia. Impression: Calcified granulomas and/or pleural plaque, as above. Groundglass opacity in the peripheral left lower lobe, most likely hypoventilatory change. Correlate for focal pneumonitis. Consider follow-up exam to reassess, as indicated. Reviewed, dictated and finalized at location . Impression: Calcified granulomas and/or pleural plaque, as above. Groundglass opacity in the peripheral left lower lobe, most likely hypoventilat ory change. Correlate for focal pneumonitis. Consider follow-up exam to reasses s, as indicated.
[2024-02-26 08:58] LABS: Estimated Glomerular Filt Rate 36
== END 2024-02-26 08:35 | disposition home or self-care (01) ==
LOC: CHSIMG 08:36
PROVIDERS: PCP Nurse Practitioner Family; Visit Provider Nurse Practitioner Family
DX: R91.1 Solitary pulmonary nodule (principal); R91.8 Other nonspecific abnormal finding of lung field
CPT/HCPCS: 71260; Q9967

== ENCOUNTER 2024-04-10 09:04 | Outpatient (CLI) | payer MEDICARE, SELFPAY ==
[2024-04-10 09:53] LABS: Basophils Absolute Auto 0.05 K/mm3 (0.00-0.10); Basophils Percent Auto 0.7 % (0.0-1.0); Eosinophils Absolute Auto 0.15 K/mm3 (0.02-0.50); Hematocrit 35.4 % (35.0-42.0); Hemoglobin 12.1 g/dL (11.7-13.8); Immature Granulocyte Absolute 0.03 K/mm3 (0.00-0.00); Immature Granulocyte Percent A 0.4 % (0.0-0.0); Lymphocytes Absolute Auto 1.51 K/mm3 (1.10-4.50); Lymphocytes Percent Auto 20.2 % (18.0-42.0); Mean Corpuscular HGB Conc 34.2 g/dL (32-36); Mean Corpuscular Hemoglobin 30.8 pg (27.0-31.0); Mean Corpuscular Volume 90.1 fL (78.0-102.0); Mean Platelet Volume 9.9 fl (9.2-11.8); Monocytes Absolute Auto 0.86 K/mm3 (0.10-0.90); Monocytes Percent Auto 11.5 % (2.0-11.0); Neutrophils Absolute Auto 4.89 K/mm3 (1.70-7.20); Neutrophils Percent Auto 65.2 % (50.0-70.0); Platelet Count Result 211 K/mm3 (150-420); Red Blood Count 3.93 M/mm3 (4.20-5.40); White Blood Count 7.5 K/mm3 (4.8-10.8)
[2024-04-10 11:12] LABS: Anion Gap 9 mmol/L (4-12); Blood Urea Nitrogen 25 mg/dL (7-18); Calcium 8.9 mg/dL (8.5-10.1); Carbon Dioxide 25 mmol/L (21-32); Chloride 106 mmol/L (98-108); Estimated Glomerular Filt Rate 45; Ferritin 136 ng/mL (8-252); Folic Acid 8.9 ng/mL (8.6->20); Glucose 87 mg/dL (70-99); Iron 62 ug/dL (50-170); Osmolality Calculated 293 mOsm/kg (285-295); Percent Iron Saturation 27 % (12-57); Potassium 4.4 mmol/L (3.5-5.1); Sodium 140 mmol/L (136-145); Vitamin B12 1531 pg/mL (193-986)
== END 2024-04-10 09:05 | disposition home or self-care (01) ==
PROVIDERS: PCP Family Medicine; Visit Provider Internal Medicine Hematology & Oncology
DX: D64.9 Anemia, unspecified (principal)
CPT/HCPCS: 36415; 80048; 82607; 82728; 82746; 83540; 83550; 85025

== ENCOUNTER 2024-12-24 11:20 | Observation (INO) | payer MEDICARE, OTHER, SELFPAY ==
[2024-12-24 11:22] VITALS: BP 131/68; PULSE 65; RESP 16; TEMP 36.7; O2SAT 98
--- NOTE | 2024-12-24 11:44 | ED_ITS ---
HPI - Nausea/Vomiting/Diarrhea General Chief complaint: Nausea/Vomiting/Diarrhea Stated complaint: diarrhea Time Seen by Provider: 12/24/24 11:22 Source: patient and family Mode of arrival: ambulatory Limitations: no limitations History of Present Illness HPI Narrative: This is an 89-year-old female, with history of hypertension, vitamin-D deficiency and Raynaud syndrome, who presents to the emergency department complaining of loose stools for the past month. She states she has had it diarrhea before without a known cause. She states she can have between 2-6 loose stools a day. She denies bleeding, abdominal pain, fevers, chills, recent travel, change in medications or diet. She states she had 1 episode of nonbloody vomiting today. She states she feels somewhat lightheaded and fatigued but has no other complaints at this time. 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 Related Data Home Medications ?Medication ?Instructions ?Recorded ?Confirmed ?Last Taken ?Type aspirin 81 mg tablet,delayed 81 mg PO DAILY 08/07/19 07/18/24 Unknown History release (Adult Aspirin Regimen) fexofenadine 180 mg tablet 180 mg PO DAILY 11/03/20 07/18/24 Unknown History (Juana Allergy) multivitamin with minerals 1 tablet PO DAILY 11/03/20 07/18/24 Unknown History (Hair,Skin and Nails tablet) mecobalamin (vitamin B12) 500 mcg mcg PO DAILY 02/07/23 07/18/24 Unknown History chewable tablet cilostazol 50 mg tablet 50 mg PO BID 02/22/24 07/18/24 Unknown History Allergies Allergy/AdvReac Type Severity Reaction Status Date / Time No Known Allergies Allergy Verified 12/24/24 11:48 Review of Systems 2 Review of Systems: All systems reviewed & are unremarkable except as noted in HPI and below PMFSH Past Medical History Medical History Vitamin D deficiency Nicotine dependence Age-related cataract of both eyes Surgically removed with lens placement Ovarian cyst Surgically removed Raynauds phenomenon Seasonal allergies Hypertension Hypercholesterolemia Surgical History Surgical History History of removal of ovarian cyst History of cataract removal with insertion of prosthetic lens (~2014) Family History Family History Father Hypertension Mother Leukemia Sibling Lung cancer Sibling Lung cancer Social History Social History Smoking packs per day: 1 Smoking cigarettes per day: 20.0 Years smoked: 65 Smoking pack-years: 65.00 Smoking status: Current every day smoker Tobacco type: cigarettes Alcohol intake: current Drinks per week: 2 Alcohol use details: Occasional Substance use: never Substance use type: does not use Lack of Transportation: No Lack of Food: Never True Current Housing: I Have Housing Concerned About Future Housing: No Difficulty Paying Gas/Electric Bills: No Difficulty Paying for Meds: No Currently Unemployed: No Education: High School Diploma/GED Difficulty w/ Childcare or Family Care: No Living arrangements: alone Occupation/Education: retired Gender identity (if verbalized by the patient): Female Spiritual care concerns: No Exam 2 Narrative: GENERAL: Well-developed, well-nourished, and in no acute distress. HEAD: Normocephalic, atraumatic. EYES: PERRLA and EOMI. ENT: Nares clear, no rhinorrhea or epistaxis. Mucous membranes moist. Oropharynx without tonsillar hypertrophy exudate or other lesions. CHEST: Clear to auscultation. No respiratory distress. No wheezes rales or rhonchi HEART: Regular rate and rhythm. No murmur heard. Normal peripheral pulses. ABDOMEN: Soft, nontender, nondistended, normal active bowel sounds. EXTREMITIES: Normal range of motion. No edema. SKIN: Warm, dry, no rash. NEURO: Alert and oriented x3. No focal deficit. Moving all 4 limbs spontaneously PSYCH: Normal mood and affect. Course Course Emergency Course: 13:52 - CBC unremarkable. Chemistries demonstrate creatinine elevation of 2.17 (with a baseline of 1.17) with BUN of 61. Anion gap within normal limits. Potassium 5.4. Remainder of electrolytes unremarkable. I suspect the patient's NICOLASA is secondary to diarrhea. EKG not concerning for T-wave changes I discussed the patient with hospitalist, FARHANA Schafer who accepts admission. Vital Signs Vital signs: Vital Signs Temperature 98.1 F 12/24/24 11:22 Pulse Rate 65 12/24/24 11:22 Respiratory Rate 16 06/24/25 11:22 Blood Pressure 131/68 12/24/24 11:22 Pulse Oximetry 98 12/24/24 11:22 Oxygen Delivery Room Air 12/24/24 11:22 Temperature 98.3 F 12/24/24 13:58 Pulse Rate 74 12/24/24 13:58 Respiratory Rate 20 12/24/24 13:58 Blood Pressure 125/53 L 12/24/24 13:58 Pulse Oximetry 94 12/24/24 13:58 Oxygen Delivery Room Air 12/24/24 13:58 MDM - Nausea/Vomiting/Diarrhea MDM Narrative Medical decision making narrative: Plan: Labs, reassess Differential Diagnosis Differential diagnosis: Likely traveler's diarrhea, food poisoning, gastroenteritis, dehydration and other ( functional diarrhea, metabolic abnormality, other) Lab Data 12/24/24 11:54 12/24/24 11:54 Labs: Lab Results 12/24/24 12/24/24 Range/Units 11:54 12:16 WBC 7.6 (4.8-10.8) K/mm3 RBC 4.30 (4.20-5.40) M/mm3 Hgb 12.9 (11.7-13.8) g/dL Hct 40.7 (35.0-42.0) % MCV 94.7 (78.0-102.0) fL MCH 30.0 (27.0-31.0) pg MCHC 31.7 L (32-36) g/dL RDW 12.7 (11.6-14.4) % Plt Count 255 (150-420) K/mm3 MPV 10.3 (9.2-11.8) fl Immature Gran % (Auto) 0.4 H (0.0-0.0) % Neut % (Auto) 70.9 H (50.0-70.0) % Lymph % (Auto) 17.4 L (18.0-42.0) % [place] % (Auto) 9.3 (2.0-11.0) % Eos % (Auto) 1.0 (1.0-6.0) % Baso % (Auto) 1.0 (0.0-1.0) % Lymph # (Auto) 1.33 (1.10-4.50) K/mm3 [place] # (Auto) 0.71 (0.10-0.90) K/mm3 Eos # (Auto) 0.08 (0.02-0.50) K/mm3 Baso # (Auto) 0.08 (0.00-0.10) K/mm3 Abs Immat Gran (auto) 0.03 H (0.00-0.00) K/mm3 Absolute Neuts (auto) 5.40 (1.70-7.20) K/mm3 Absolute Nucleated RBC 0.00 (0.00-0.00) K/mm3 Nucleated RBC % 0.0 (0-0.0) % Sodium 137 (137-145) mmol/L Potassium 5.4 H (3.4-5.0) mmol/L Chloride 115 H (98-107) mmol/L Carbon Dioxide 12 L (22-30) mmol/L Anion Gap 10 (4-12) mmol/L BUN 61 H D (7-17) mg/dL Creatinine 2.17 H (0.7-1.0) mg/dL Estim Creat Clear Calc 13 ml/min Estimated GFR 21 L (59 - ) Glucose 101 (65-110) mg/dL Calculated Osmolality 301 H (285-295) mOsm/kg Calcium 9.2 (8.4-10.2) mg/dL Magnesium 2.3 (1.6-2.3) mg/dL Total Bilirubin 0.5 (0.2-1.3) mg/dL AST 35 (14-36) U/L ALT 34 (6-35) U/L Alkaline Phosphatase 99 (38-126) U/L Total Protein 7.8 (6.3-8.2) g/dL Albumin 4.6 (3.5-5.1) g/dL Urine Color Light yellow (Yellow) Urine Appearance Clear (Clear) Urine pH 6.0 (5.0-8.0) Ur Specific [place] 1.010 (1.010-1.020) Urine Protein Negative (Negative) Urine Glucose (UA) Negative (Negative) Urine Ketones Negative (Negative) Ur Blood (Man) Trace-intact H (Negative) Urine Nitrate Negative (Negative) Urine Bilirubin Negative (Negative) Urine Urobilinogen 0.2 (0.2-1.0) mg/dL Leukocyte Esterase Rfl 1+ H (Negative) ERICA/UL Urine RBC None seen (0-2) /hpf Urine WBC 4-6 H (0-3) /hpf Ur Squamous Epith Cells Few (Few) /hpf Urine Bacteria Trace (None) /hpf ECG Data EKG #1: Attestation: I personally reviewed and interpreted this ECG as follows: ECG completion date: 12/24/24 ECG completion time: 12:46 Prior ECG tracings: not available for review Interpretation: sinus rhythm, rate 60, normal axis, no ST segment elevations or T-wave inversions concerning for ischemia, normal intervals with QTC of 410. Discharge Plan Discharge Clinical Impression: NICOLASA (acute kidney injury), Acute hyperkalemia Diarrhea Qualifiers: Diarrhea type: unspecified type Qualified Code(s): R19.7 - Diarrhea, unspecified Patient Disposition: [facility] Condition: Stable Time of Disposition: 13:52
[2024-12-24 11:59] LABS: Basophils Absolute Auto 0.08 K/mm3 (0.00-0.10); Eosinophils Absolute Auto 0.08 K/mm3 (0.02-0.50); Hematocrit 40.7 % (35.0-42.0); Hemoglobin 12.9 g/dL (11.7-13.8); Immature Granulocyte Absolute 0.03 K/mm3 (0.00-0.00); Immature Granulocyte Percent A 0.4 % (0.0-0.0); Lymphocytes Absolute Auto 1.33 K/mm3 (1.10-4.50); Lymphocytes Percent Auto 17.4 % (18.0-42.0); Mean Corpuscular HGB Conc 31.7 g/dL (32-36); Mean Corpuscular Volume 94.7 fL (78.0-102.0); Mean Platelet Volume 10.3 fl (9.2-11.8); Monocytes Absolute Auto 0.71 K/mm3 (0.10-0.90); Monocytes Percent Auto 9.3 % (2.0-11.0); Neutrophils Percent Auto 70.9 % (50.0-70.0); Platelet Count Result 255 K/mm3 (150-420); Red Cell Distribution Width 12.7 % (11.6-14.4); White Blood Count 7.6 K/mm3 (4.8-10.8)
[2024-12-24 12:11] LABS: Alanine Aminotransferase 34 U/L (6-35); Albumin Level 4.6 g/dL (3.5-5.1); Alkaline Phosphatase 99 U/L (38-126); Anion Gap 10 mmol/L (4-12); Aspartate Amino Transferase 35 U/L (14-36); Bilirubin,Total 0.5 mg/dL (0.2-1.3); Blood Urea Nitrogen 61 mg/dL (7-17); Calcium 9.2 mg/dL (8.4-10.2); Carbon Dioxide 12 mmol/L (22-30); Chloride 115 mmol/L (98-107); Estimated CRCL calculation 13 ml/min; Estimated Glomerular Filt Rate 21; Glucose 101 mg/dL (65-110); Osmolality Calculated 301 mOsm/kg (285-295); Potassium 5.4 mmol/L (3.4-5.0); Sodium 137 mmol/L (137-145); Total Protein 7.8 g/dL (6.3-8.2)
[2024-12-24 12:12] LABS: Magnesium 2.3 mg/dL (1.6-2.3)
--- NOTE | 2024-12-24 12:16 | ECG_ITS ---
Test Date: 2024-12-24 12:46:46 Measurements Intervals [facility] [place] Rate: 60 P: -13 CA: 170 QRS: 46 QRSD: 64 T: 54 QT: 410 QTc: 410 Interpretive Statements SINUS RHYTHM LOW QRS VOLTAGE IN PRECORDIAL LEADS BASELINE WANDER- I, II, III, AVL, AVF, V1 BORDERLINE ECG No previous ECG available for comparison Electronically Signed On 12-24-2024 12:54:53 CDT by Fernando Hickey D.O.
[2024-12-24] MEDS: LACTATED RINGERS 1,000 ML 999 ML IV CONT (12:26)
[2024-12-24 13:45] LABS: Add Urine Microscopic? YES; Appearance Urine Clear (Clear); Bilirubin Urine Negative (Negative); Blood Urine Trace-intact (Negative); Color Urine Light Yellow (Yellow); Glucose Urine UA Negative (Negative); Ketones Urine Negative (Negative); Leukocyte Esterase Ur 1+ LEU/UL (Negative); Nitrate Urine Negative (Negative); Protein Urine Negative (Negative); Urobilinogen Urine 0.2 mg/dL (0.2-1.0)
[2024-12-24 13:49] LABS: Bacteria Urine Trace /hpf; RBC Urine None seen /hpf (0-2); Squamous Epithelial Cell Urine Few /hpf (Few)
[2024-12-24 13:58] VITALS: BP 125/53; PULSE 74; RESP 20; TEMP 36.8; O2SAT 94
--- NOTE | 2024-12-24 14:35 | ADMGEN ---
This patient, Leonela Carrero, was admitted to 2nd Floor Room 210-1. Patient/family oriented to hospital policies and general routines including ID bracelet, bed and alarms, visiting hours, pain management, procedures, bathroom and other care routines, personal items, smoking policy, room service/diet, and visiting hours. Information on how to activate the Rapid Response Team has been discussed. Patient/Family are encouraged to report perceived risks to care and to ask questions if they do not understand what they are told or what they should do.
[2024-12-24 14:50] VITALS: BMI 21.6
[2024-12-24 16:00] VITALS: BP 123/58; PULSE 64; RESP 16; TEMP 35.8; O2SAT 92
[2024-12-24] MEDS: SODIUM ZIRCONIUM CYCLOSILICATE 5 GM POWD.PACK PO (17:44)
[2024-12-24] MEDS: SODIUM CHLORIDE 0.9% IV 1,000 ML 100 ML IV CONT (17:51)
[2024-12-24] MEDS: NICOTINE (*PBKC) 21 MG PATCH 1 PATCH TRANSDERM (21:05)
[2024-12-25] VITALS: BP 104/46; PULSE 65; RESP 15; TEMP 36.4; O2SAT 96
[2024-12-25] MEDS: SODIUM CHLORIDE 0.9% IV 1,000 ML 100 ML IV CONT (03:11)
[2024-12-25 05:26] LABS: Basophils Absolute Auto 0.08 K/mm3 (0.00-0.10); Basophils Percent Auto 1.5 % (0.0-1.0); Eosinophils Absolute Auto 0.13 K/mm3 (0.02-0.50); Eosinophils Percent Auto 2.4 % (1.0-6.0); Hematocrit 31.5 % (35.0-42.0); Hemoglobin 10.2 g/dL (11.7-13.8); Immature Granulocyte Absolute 0.01 K/mm3 (0.00-0.00); Immature Granulocyte Percent A 0.2 % (0.0-0.0); Lymphocytes Percent Auto 29.6 % (18.0-42.0); Mean Corpuscular HGB Conc 32.4 g/dL (32-36); Mean Corpuscular Hemoglobin 30.3 pg (27.0-31.0); Mean Corpuscular Volume 93.5 fL (78.0-102.0); Monocytes Absolute Auto 0.72 K/mm3 (0.10-0.90); Monocytes Percent Auto 13.3 % (2.0-11.0); Neutrophils Absolute Auto 2.87 K/mm3 (1.70-7.20); Platelet Count Result 188 K/mm3 (150-420); Red Blood Count 3.37 M/mm3 (4.20-5.40); Red Cell Distribution Width 12.8 % (11.6-14.4); White Blood Count 5.4 K/mm3 (4.8-10.8)
[2024-12-25 05:39] LABS: Alanine Aminotransferase 27 U/L (6-35); Albumin Level 3.1 g/dL (3.5-5.1); Alkaline Phosphatase 71 U/L (38-126); Anion Gap 4 mmol/L (4-12); Aspartate Amino Transferase 30 U/L (14-36); Bilirubin,Total 0.2 mg/dL (0.2-1.3); Blood Urea Nitrogen 48 mg/dL (7-17); Calcium 8.2 mg/dL (8.4-10.2); Carbon Dioxide 14 mmol/L (22-30); Chloride 121 mmol/L (98-107); Estimated CRCL calculation 21 ml/min; Estimated Glomerular Filt Rate 38; Glucose 83 mg/dL (65-110); Osmolality Calculated 299 mOsm/kg (285-295); Sodium 139 mmol/L (137-145); Total Protein 5.7 g/dL (6.3-8.2)
[2024-12-25 08:00] VITALS: BP 105/48; PULSE 73; RESP 18; TEMP 36.4; O2SAT 96
[2024-12-25 09:44] LABS: Toxigenic C. Diff NEGATIVE (NEGATIVE)
--- NOTE | 2024-12-25 09:52 | PM.SD2 ---
Same Day Admit/Disch: [facility] History of Present Illness Chief complaint: NICOLASA Narrative: Leonela Carrero is a 89 year old female with HTN, HLD and B12 deficiency here for weakness and fatigue. Patient has been feeling fatigued and tired with no energy over the past month. She was seen by her physician about 6 months ago was noted to have a 14 lb weight loss. She has chronic diarrhea for the past 20 years having 4-5 bowel movements a day on average. Nothing seems to make it worse. She has tried Metamucil without benefit. Stools are watery but no melena or hematochezia. Colonoscopy 10 years ago was negative. She has not set up appointment with the GI doctor yet. She has not undergone any significant testing that she is aware of. No chronic abdominal pain but does have occasional lower abdominal discomfort that improves after bowel movement. She has city water. No recent travel. She was exposed to river water about 5 years ago but nothing since. She has occasional formed stools but not frequently. No recent antibiotic use. Patient of the past 6 months has lost an additional 6 lb. No stool incontinence. No breast masses or changes in the breasts. No nipple discharge. Over the past week or so, she has noted worsening fatigue. She had an episode of nausea and vomiting 2 nights ago. No hematemesis. She had subjective fever but no chills. She did take Imodium x1 a day before admission. She has had no cough or hematemesis. No chest pain or shortness of breath. No dysuria, hematuria, urinary frequency or urgency. No leg edema. She does have chronic numbness in her toes and has peripheral arterial disease in the right lower extremity and is being followed by a physician in [place]. She has been feeling dehydrated. She presented to the emergency room for evaluation. [facility] Past Medical History Medical History PAD (peripheral artery disease) Vitamin D deficiency Nicotine dependence Age-related cataract of both eyes Surgically removed with lens placement Ovarian cyst Surgically removed Raynauds phenomenon Seasonal allergies Hypertension Hypercholesterolemia Surgical History Surgical History History of removal of ovarian cyst History of cataract removal with insertion of prosthetic lens (~2014) Family History Family History Father Hypertension Mother Leukemia Sibling Lung cancer Sibling Lung cancer Social History Social History (Updated 12/25/24 @ 10:06 by Eliecer Mooney MD) Social History: She smoked up to 1.5ppd x 70 yrs. Down to <1ppd. Rare alcohol use. No drug use hx Code status - full Surrogate decision maker - daughter Smoking packs per day: 1 Smoking cigarettes per day: 20.0 Years smoked: 65 Smoking pack-years: 65.00 Smoking status: Current every day smoker Tobacco type: cigarettes Alcohol intake: never Drinks per week: 2 Alcohol use details: Occasional Substance use: never Substance use type: does not use Do You Feel Safe in your Home?: Yes Lack of Transportation: No Lack of Food: Never True Current Housing: I Have Housing Concerned About Future Housing: No Difficulty Paying Gas/Electric Bills: No Difficulty Paying for Meds: No Currently Unemployed: No Education: High School Diploma/GED Difficulty w/ Childcare or Family Care: No Living arrangements: alone Occupation/Education: retired Gender identity (if verbalized by the patient): Female Spiritual care concerns: No Same Day Admit/Disch: Med Pre-admit Medications Home Medications ?Medication ?Instructions ?Recorded ?Confirmed ?Type aspirin 81 mg tablet,delayed 81 mg PO DAILY 08/07/19 12/24/24 History release (Adult Aspirin Regimen) cholecalciferol (vitamin D3) 50 2,000 unit PO DAILY #30 caps 08/16/19 12/24/24 Rx mcg (2,000 unit) capsule fexofenadine 180 mg tablet 180 mg PO DAILY 11/03/20 12/24/24 History (Juana Allergy) multivitamin with minerals 1 tablet PO DAILY 11/03/20 12/24/24 History (Hair,Skin and Nails tablet) ketotifen fumarate 0.025 % (0.035 1 drp EACH EYE BID PRN allergy 08/09/21 12/24/24 Rx %) eye drops (Zaditor) symptoms #5 mL amlodipine 5 mg tablet 5 mg PO DAILY #90 tabs 09/29/22 12/24/24 Rx ferrous sulfate 325 mg (65 mg 325 mg PO BID #180 tabs 01/16/23 12/24/24 Rx iron) tablet mecobalamin (vitamin B12) 500 mcg 500 mcg PO DAILY 02/07/23 12/24/24 History chewable tablet fluticasone propionate 50 1 spray intranasal DAILY #16 mL 09/05/23 12/24/24 Rx mcg/actuation nasal spray,suspension (Allergy Relief (fluticasone)) cilostazol 50 mg tablet 50 mg PO BID 02/22/24 12/24/24 History atenolol 50 mg tablet See Rx Instructions .Route 05/13/24 12/24/24 Rx .COMPLEX #90 tabs lisinopril 20 1 tablet PO DAILY #90 tabs 06/24/24 12/24/24 Rx mg-hydrochlorothiazide 25 mg tablet ibuprofen 800 mg tablet 800 mg PO TID PRN pain #30 tabs 07/18/24 12/24/24 Rx magnesium glycinate 100 mg (as 300 mg (3 x 100 mg) PO QHS #90 tabs 07/18/24 12/24/24 Rx glycinate) tablet psyllium husk 0.4 gram capsule 0.4 g PO DAILY #30 caps 07/18/24 12/24/24 Rx (Metamucil) atorvastatin 40 mg tablet See Rx Instructions .Route 11/11/24 12/24/24 Rx .COMPLEX #90 tabs Review of Systems Review of Systems All systems reviewed & are unremarkable except as noted in HPI and below Exam Narrative: AF 97.5 104/46 65 15 96% ra Gen - well appearing female in no acute respiratory distress who is nontoxic-appearing lying semi recumbent in bed HEENT - normocephalic. Atraumatic. Pupils equal round and poorly reactive. Extraocular motions intact. Sclera clear and anicteric. Nares patent. Oropharynx was poorly visualized. Upper dentures. No oral lesions. Moist mucous membranes. Tongue was midline. Palate rich symmetrically. No facial asymmetry. Neck - neck was supple. No dominant thyromegaly or masses. 2+ carotid upstrokes with faint bruits (?transmitted murmur). Chest - lungs are clear to auscultation bilaterally. No wheezes or crackles. Breast exam showing no dimpling, nipple discharge, or dominant masses. No supraclaviluar, cervical or axillary adenopathy. CV - heart was regular rate and rhythm. S1-S2. 2/6 systolic murmur RUSB Abd - abdomen was soft. Nontender. Nondistended. Positive bowel sounds. No organomegaly or masses. No inguinal adenopathy Ext - no clubbing, cyanosis or edema. faint lower extremitiy pulses bilaterally. Neuro - patient is alert and oriented x4. Strength is 5/5 in both upper and lower extremities. Cranial nerves 2-12 are intact. Speech is clear. Psych - normal mood and affect. Patient is pleasant and cooperative. Skin - warm and dry. No rashes noted. DS: Data Data Completed and Pending Labs on day of discharge: Labs from last 24 hours 12/25/24 12/25/24 12/25/24 08:56 05:22 05:19 WBC 5.4 RBC 3.37 L Hgb 10.2 L Hct 31.5 L MCV 93.5 MCH 30.3 MCHC 32.4 RDW 12.8 Plt Count 188 MPV 10.0 Immature Gran % (Auto) 0.2 H Neut % (Auto) 53.0 Lymph % (Auto) 29.6 [place] % (Auto) 13.3 H Eos % (Auto) 2.4 Baso % (Auto) 1.5 H Lymph # (Auto) 1.60 [place] # (Auto) 0.72 Eos # (Auto) 0.13 Baso # (Auto) 0.08 Abs Immat Gran (auto) 0.01 H Absolute Neuts (auto) 2.87 Absolute Nucleated RBC 0.00 Nucleated RBC % 0.0 Sodium 139 Potassium 5.0 Chloride 121 H Carbon Dioxide 14 L Anion Gap 4 BUN 48 H D Creatinine 1.31 H Estim Creat Clear Calc 21 Estimated GFR 38 L Glucose 83 Calculated Osmolality 299 H Calcium 8.2 L Magnesium Total Bilirubin 0.2 AST 30 ALT 27 Alkaline Phosphatase 71 Total Protein 5.7 L Albumin 3.1 L TSH (Reflex) Pending Urine Color Urine Appearance Urine pH Ur Specific [place] Urine Protein Urine Glucose (UA) Urine Ketones Ur Blood (Man) Urine Nitrate Urine Bilirubin Urine Urobilinogen Leukocyte Esterase Rfl Urine RBC Urine WBC Ur Squamous Epith Cells Urine Bacteria Stool Occult Blood Pending C. difficile (PCR) Negative 12/24/24 12/24/24 12:16 11:54 WBC 7.6 RBC 4.30 Hgb 12.9 Hct 40.7 MCV 94.7 MCH 30.0 MCHC 31.7 L RDW 12.7 Plt Count 255 MPV 10.3 Immature Gran % (Auto) 0.4 H Neut % (Auto) 70.9 H Lymph % (Auto) 17.4 L [place] % (Auto) 9.3 Eos % (Auto) 1.0 Baso % (Auto) 1.0 Lymph # (Auto) 1.33 [place] # (Auto) 0.71 Eos # (Auto) 0.08 Baso # (Auto) 0.08 Abs Immat Gran (auto) 0.03 H Absolute Neuts (auto) 5.40 Absolute Nucleated RBC 0.00 Nucleated RBC % 0.0 Sodium 137 Potassium 5.4 H Chloride 115 H Carbon Dioxide 12 L Anion Gap 10 BUN 61 H D Creatinine 2.17 H Estim Creat Clear Calc 13 Estimated GFR 21 L Glucose 101 Calculated Osmolality 301 H Calcium 9.2 Magnesium 2.3 Total Bilirubin 0.5 AST 35 ALT 34 Alkaline Phosphatase 99 Total Protein 7.8 Albumin 4.6 TSH (Reflex) Urine Color Light yellow Urine Appearance Clear Urine pH 6.0 Ur Specific [place] 1.010 Urine Protein Negative Urine Glucose (UA) Negative Urine Ketones Negative Ur Blood (Man) Trace-intact H Urine Nitrate Negative Urine Bilirubin Negative Urine Urobilinogen 0.2 Leukocyte Esterase Rfl 1+ H Urine RBC None seen Urine WBC 4-6 H Ur Squamous Epith Cells Few Urine Bacteria Trace Stool Occult Blood C. difficile (PCR) DS: Summary Hospital Course Reason for hospitalization: NICOLASA, dehydration, chronic diarrhea Hospital Course: In the ED, she was hemodynamically stable. CBC was normal. BUN was 61 and creatinine 2.2. Potassium 5.4 with a non gap metabolic acidosis with serum bicarb of 12. LFTs normal. UA showed trace blood with 1+ leukocyte esterase and 4-6 white cells. C diff was negative. She was given IV fluids and 1 dose of Lokelma. Metabolic acidosis related to diarrhea. She was admitted and continued on IV fluids. Her lisinopril and HCTZ were held. She takes ibuprofen as needed and this was also held. Hemoglobin dropped to 10.2 but felt related to the fluids. Repeat potassium was normal at 5. Non gap metabolic acidosis improved. BUN to 48 and creatinine returned to her baseline at 1.3. She has been up ambulating to the bathroom. She is eating normally. She has not had diarrhea since admission. She is eager for discharge. She does need a full evaluation for the weight loss and fatigue. She is not having gross blood loss and hemoglobin was normal on admission so do not believe she needs to remain hospitalized for this. Will plan to continue her ASA for her PAD but add Protonix. GI is not available here but do not believe patient needs to be transferred or remain hospitalized for evaluation since she will be seeing her primary care doctor in a few days. She does need to see GI physician which will arrange. She also follows with a vascular specialist so will defer to them about the ?carotid bruit. TSH is pending here. She overall did well and was able be discharged on 12/25/2024. Time spent discussing smoking cessation with patient: 3 to 10 minutes Status at Discharge Cognitive/behavioral status at discharge: stable Time Spent with Patient Time attestation: Total time spent providing and/or coordinating discharge services: 50 minutes Time spent: Greater than 30 minutes DS: Admitting Diagnosis Discharge Date 12/25/24 Admitting Diagnosis Fatigue DS: Discharge Diagnosis Discharge Diagnosis (1) Dehydration: Code(s): E86.0 - Dehydration Status: Acute (2) Hyperkalemia: Code(s): E87.5 - Hyperkalemia Status: Acute (3) NICOLASA (acute kidney injury): Code(s): N17.9 - Acute kidney failure, unspecified Status: Acute (4) Diarrhea: Qualifiers: Diarrhea type: unspecified type Qualified Code(s): R19.7 - Diarrhea, unspecified Code(s): R19.7 - Diarrhea, unspecified Status: Acute (5) Weight loss: Code(s): R63.4 - Abnormal weight loss Status: Acute (6) Metabolic acidosis: Code(s): E87.20 - Acidosis, unspecified Status: Acute (7) Nicotine dependence: Qualifiers: Nicotine product type: cigarettes Substance use status: uncomplicated Qualified Code(s): F17.210 - Nicotine dependence, cigarettes, uncomplicated Code(s): F17.200 - Nicotine dependence, unspecified, uncomplicated Status: Acute (8) Hypertension: Qualifiers: Hypertension type: primary hypertension Qualified Code(s): I10 - Essential (primary) hypertension Code(s): I10 - Essential (primary) hypertension Status: Acute (9) PAD (peripheral artery disease): Code(s): I73.9 - Peripheral vascular disease, unspecified Status: Acute Discharge Plan Discharge Attending physician on discharge: Eliecer Mooneyarging Clinician: Eliecer Mooney Anticipated Discharge Date/Time: 12/25/24 10:23 Patient Disposition: Home Activity: as tolerated Diet: regular Discharge Instructions: Check blood pressure 1 to 2 times a day. Record and bring into your doctor for review. Call your doctor if your blood pressure is greater than 180/110. Take precautions to avoid falls. Rise slowly from a lying or sitting position. Pause before standing or walking. Contact your doctor or call 911 and come to the Emergency Room if you have blood in stool, lightheadedness with standing or other worrisome symptoms. Avoid NSAIDs (ibuprofen, naproxen, Aleve). Tylenol is safe to take. Follow-up with your primary care provider next week. Please call for appointment. Please follow up with the GI doctor for the diarrhea and that you had blood in your stool as we discussed. Please call for an appointment. Thank you for using [facility] for your health care needs. Patient Instructions: Antibiotic Form Patient Language: Haitian Stand Alone Forms: General Discharge Information Follow-up/Referrals: Cisco Liz DO [Primary Care Provider] - Keep Reg. Scheduled Appt. Juan Murray MD [Physician] - Call for Appointment Discharge Medications: New pantoprazole [Protonix] 40 mg tablet,delayed release (DR/EC) 40 mg PO QAM Qty: 30 0RF Continued fexofenadine [Juana Allergy] 180 mg tablet 180 mg PO DAILY multivitamin with minerals [Hair,Skin and Nails] Tablet 1 tablet PO DAILY magnesium glycinate 100 mg tablet 300 mg PO QHS Qty: 90 0RF aspirin [Adult Aspirin Regimen] 81 mg tablet,delayed release (DR/EC) 81 mg PO DAILY ketotifen fumarate [Zaditor] 0.025 % (0.035 %) drops 1 drp EACH EYE BID PRN (Reason: allergy symptoms) Qty: 5 0RF Rx Instructions: administer at least 8 hours apart amlodipine 5 mg tablet 5 mg PO DAILY Qty: 90 0RF mecobalamin (vitamin B12) 500 mcg tablet,chewable 500 mcg PO DAILY fluticasone propionate [Allergy Relief (fluticasone)] 50 mcg/actuation spray,suspension 1 spray intranasal DAILY Qty: 16 0RF Rx Instructions: administer into each nostril cilostazol 50 mg tablet 50 mg PO BID cholecalciferol (vitamin D3) 50 mcg (2,000 unit) capsule 2,000 unit PO DAILY Qty: 30 1RF ferrous sulfate 325 mg (65 mg iron) tablet 325 mg PO BID Qty: 180 0RF atenolol 50 mg tablet See Rx Instructions .ROUTE .COMPLEX Qty: 90 3RF Dose Instruction: TAKE 1 TABLET DAILY Rx Instructions: TAKE 1 TABLET DAILY psyllium husk [Metamucil] 0.4 gram capsule 0.4 g PO DAILY Qty: 30 0RF atorvastatin 40 mg tablet See Rx Instructions .ROUTE .COMPLEX Qty: 90 3RF Dose Instruction: TAKE 1 TABLET DAILY Rx Instructions: TAKE 1 TABLET DAILY Held lisinopril-hydrochlorothiazide 20-25 mg tablet 1 tablet PO DAILY Qty: 90 2RF Hold Instructions: HOLD - resume when okay with your doctor Discontinued ibuprofen 800 mg tablet 800 mg PO TID PRN (Reason: pain) Qty: 30 0RF Date of admission: 12/24/24 14:09 Primary Care Provider: Cisco Liz Admitting Provider: Octavio Handley Attending physician on admission: Octavio Handley Condition: Stable Hospitalist MIPS Advance Care Plan I have confirmed that the patient's Advanced Care Plan is present, code status is documented, or surrogate decision maker is listed in patient medical record.: Yes Medication Reconciliation I have utilized all available resources to obtain, update and review the patients current medications (includes all prescriptions, OTC, herbals, cannabis, and nutritional supplements).: Yes Heart Failure (Exclusion) Patient has history of Heart Transplant or Left Ventricular Assistive Device?: No IF YES, STOP HERE Heart Failure (Qualifier) Patient has current or prior documentation of LVEF less than or equal to 40%, or mod/servere depressed LVSF?: No IF NO, STOP HERE
[2024-12-25 09:59] LABS: Occult Blood Positive (Negative)
[2024-12-25] MEDS: amLODIPine BESYLATE 5 MG TABLET PO (10:07)
[2024-12-25] MEDS: ATORVASTATIN 40 MG TABLET PO (10:07)
[2024-12-25] MEDS: ASPIRIN 81 MG ENTERIC TABLET PO (10:07)
[2024-12-25] MEDS: atenoloL 25 MG TABLET 50 MG PO (10:07)
[2024-12-25] MEDS: CHOLECALCIFEROL (VITAMIN D3) 25 MCG (1,000 UNITS) TABLET 50 MCG PO (10:07)
[2024-12-25] MEDS: THERAPEUTIC MULTIVITAMINS/MINERALS TAB (*BKC) 1 TABLET PO (10:08)
[2024-12-25] MEDS: FERROUS SULFATE 325 MG TABLET DR PO (10:08)
[2024-12-25] MEDS: NICOTINE (*PBKC) 21 MG PATCH 1 PATCH TRANSDERM (10:13)
--- NOTE | 2024-12-25 11:30 | PC.NURSE ---
Discharge instructions reviewed with pt and her son and daughter. All questions answered. Pt voiced understanding of medications and appointments needed. Pt escorted via wheelchair and assisted into private vehicle.
--- NOTE | 2024-12-26 10:01 | PC.NURSE ---
Discharge callback made spoke with Leonela, she informs she understood all education and instructions.
== END 2024-12-25 11:30 | disposition home or self-care (01) ==
LOC: CHSED 13:54 → CHS2ND 14:13
PROVIDERS: Internal Medicine; Nurse Practitioner Family; Admitting Provider Internal Medicine; Emergency Provider Preventive Medicine Aerospace Medicine; PCP Family Medicine; Visit Provider Internal Medicine
DX: N17.9 Acute kidney failure, unspecified (principal); E86.0 Dehydration; E87.5 Hyperkalemia; R19.7 Diarrhea, unspecified; E53.8 Deficiency of other specified B group vitamins; E87.20 Acidosis, unspecified; R63.4 Abnormal weight loss; I10 Essential (primary) hypertension; E78.00 Pure hypercholesterolemia, unspecified; I73.9 Peripheral vascular disease, unspecified; E55.9 Vitamin D deficiency, unspecified; I73.00 Raynaud's syndrome without gangrene; F17.210 Nicotine dependence, cigarettes, uncomplicated; Z79.82 Long term (current) use of aspirin; Z79.899 Other long term (current) drug therapy; Z96.1 Presence of intraocular lens; Z98.42 Cataract extraction status, left eye; Z98.41 Cataract extraction status, right eye
CPT/HCPCS: 36415; 80053; 81001; 82272; 83735; 84443; 85025; 87086; 87493; 93005; 96361; 96372; 96374; 99285; A9270; G0378; J7030; J7120

== ENCOUNTER 2025-05-20 09:49 | Outpatient (CLI) | payer MEDICARE, OTHER, SELFPAY ==
--- OUTSIDE RECORDS SUMMARY | 2025-05-19 10:30 | XMS_ITS | Encounter Summary ---
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, bilateral legs Procedures Supervised Exercise Therapy for Peripheral Artery Disease Tristan Smith MD [address] , [place] [address] [place] [address] Phone: tel:[phone] fax:[phone] [facility] [address] [place] [address] Phone: tel: fax: Referral ID Status Reason Start Date Expiration Date Visits Requested Visits Authorized [id number] Authorized Cardiac Rehabilitation 5 01/18/2026 36 36 Encounter Details Date Type Department Care Team (Latest Contact Info) Description 05/19/2025 10:30 AM AUDIOVISUAL LEAD TECHNICIAN Hospital Encounter [facility] [address] [place] [address] Tristan Smith MD [address] , [facility] [address] [address] Arrived Social History Tobacco Use Types Packs/Day Years Used Date Smoking Tobacco: Every Day Cigarettes Smokeless Tobacco: Never Alcohol Use Standard Drinks/Week Comments Never 0 (1 standard drink = 0.6 oz pur e alcohol) Comments Unknown Sex and Gender Information Value Date Recorded Sex Assigned at Female 12/17/2024 1:24 PM CDT Legal Sex Female 9:27 PM CDT Gender Identity Not on file Sexual Orientation Not on file Occupation Industry Job Start Date Job End Date Retired Not on file Not on file Not on file documented as of this encounter Plan of Treatment Upcoming Encounters Date Type Department Care Team (Late st Contact Info) Description 05/21/2025 10:30 AM AUDIOVISUAL LEAD TECHNICIAN Appointment [facility] [address] [place] [id number] Tristan Smith MD [address], [address] [address] 05/23/2025 10:30 AM AUDIOVISUAL LEAD TECHNICIAN Appointment [facility] [address] [place] [id number] Tristan Smith MD [address] [address], [address] [address] 05/26/2025 10:30 AM AUDIOVISUAL LEAD TECHNICIAN Appointment [facility] [address] [place] [id number] Tristan Smith MD [address] [place], [place] [address]ON ST, [address] [address] 05/28/2025 10:30 AM AUDIOVISUAL LEAD TECHNICIAN Appointment [facility] [address] [place] [address] Tristan Smith MD [address], [address] [address] 05/30/2025 10:30 AM AUDIOVISUAL LEAD TECHNICIAN Appointment [facility] [address] [place] [id number] Tristan Smith MD [address], [address] [address] 06/02/2025 10:30 AM AUDIOVISUAL LEAD TECHNICIAN Appointment [facility] [address] [place] [address] Tristan Smith MD [address], [address] [address] 06/04/2025 10:30 AM AUDIOVISUAL LEAD TECHNICIAN Appointment [facility] [address] [place] [address] Tristan Smith MD [address], [address] [address] 06/06/2025 10:30 AM AUDIOVISUAL LEAD TECHNICIAN Appointment [facility] [place] [address] Tristan Smith MD [address], [address] [address] 06/09/2025 10:30 AM AUDIOVISUAL LEAD TECHNICIAN Appointment [facility] [place] [address] Tristan Smith MD [address], [address] [address] 06/11/2025 10:30 AM AUDIOVISUAL LEAD TECHNICIAN Appointment [facility] [place] [address] Tristan Smith MD [address], [address] [address] 06/13/2025 10:30 AM AUDIOVISUAL LEAD TECHNICIAN Appointment [facility] [place] [address] Tristan Smith MD [address], [address] [address] 06/16/2025 10:30 AM AUDIOVISUAL LEAD TECHNICIAN Appointment [facility] [address] [place] [address] Tristan Smith MD [address], [address] [address] 06/18/2025 10:30 AM AUDIOVISUAL LEAD TECHNICIAN Appointment [facility] [place] [address] Tristan Smith MD [address], [address] [address] 06/20/2025 10:30 AM AUDIOVISUAL LEAD TECHNICIAN Appointment [facility] [place] [address] Tristan Smith MD [address], [address] [address] 06/23/2025 10:30 AM AUDIOVISUAL LEAD TECHNICIAN Appointment [facility] [place] [address] Tristan Smith MD [address], [address] [address] 06/25/2025 10:30 AM AUDIOVISUAL LEAD TECHNICIAN Appointment [facility] [place] [address] Tristan Smith MD [address], [address] [address] 06/27/2025 10:30 AM AUDIOVISUAL LEAD TECHNICIAN Appointment [facility] [place] [address] Tristan Smith MD [address], [address] [address] 06/30/2025 10:30 AM AUDIOVISUAL LEAD TECHNICIAN Appointment [facility] [address] [place] [address] Tristan Smith MD [address], [address] [address] 07/02/2025 10:30 AM AUDIOVISUAL LEAD TECHNICIAN Appointment [facility] [place] [address] Tristan Smith MD [address], [address] [address] 07/04/2025 10:30 AM AUDIOVISUAL LEAD TECHNICIAN Appointment [facility] [place] [address] Tristan Smith MD [address], [address] [address] 07/07/2025 10:30 AM AUDIOVISUAL LEAD TECHNICIAN Appointment [facility] [place] [address] Tristan Smith MD [address], [address] [address] 07/09/2025 10:30 AM AUDIOVISUAL LEAD TECHNICIAN Appointment [facility] [place] [address] Tristan Smith MD [address], [address] [address] 07/11/2025 10:30 AM AUDIOVISUAL LEAD TECHNICIAN Appointment [facility] [place] [id number] Tristan Smith MD [address], [address] [address] 07/14/2025 10:30 AM AUDIOVISUAL LEAD TECHNICIAN Appointment [facility] [address] [place] [address] Tristan Smith MD [address], [address] [address] 07/16/2025 10:30 AM AUDIOVISUAL LEAD TECHNICIAN Appointment [facility] [address] [place] [address] Tristan Smith MD [address], [address] [address] 07/18/2025 10:30 AM AUDIOVISUAL LEAD TECHNICIAN Appointment [facility] [address] [place] [address] Tristan Smith MD [address], [address] [address] 07/21/2025 10:30 AM AUDIOVISUAL LEAD TECHNICIAN Appointment [facility] [place] [address] Tristan Smith MD [address], [address] [address] 07/23/2025 10:30 AM AUDIOVISUAL LEAD TECHNICIAN Appointment [facility] [place] [address] Tristan Smith MD [address], [address] [address] 07/25/2025 10:30 AM AUDIOVISUAL LEAD TECHNICIAN Appointment [facility] [place] [id number] Tristan Smith MD [address], [address] [address] 07/28/2025 10:30 AM AUDIOVISUAL LEAD TECHNICIAN Appointment [facility] [address] [place] [address] Tristan Smith MD [address], [address] [address] 07/30/2025 10:30 AM AUDIOVISUAL LEAD TECHNICIAN Appointment [facility] [place] [id number] Tristan Smith MD [address], [address] [address] 08/01/2025 10:30 AM AUDIOVISUAL LEAD TECHNICIAN Appointment [facility] [place] [id number] Tristan Smith MD [address], [address] [address] 08/04/2025 10:30 AM AUDIOVISUAL LEAD TECHNICIAN Appointment [facility] [place] [address] Tristan Smith MD [address], [address] [address] 08/26/2025 11:00 AM AUDIOVISUAL LEAD TECHNICIAN Office Visit [facility] [place] [address] Tristan Smith MD [address], [address] [address] documented as of this encounter Visit Diagnoses Not on filedocumented in this encounter Care Teams Lecturer In Marketing Relationship Specialty Start Date End Date Buschling, Cisco, DO [address] [place] [address] PCP - General FAMILY PRACTICE 04/18/23 Tristan Smith MD [address] [facility] [address] [address] Physician INTERVENTIONAL CARDIOLOGY 10/04/24 documented as of this encounter
--- NOTE | ~2025-05-20 | XR_ITS ---
EXAMINATION: XR ankle RT min 3V, 05/20/2025 9:55 HUMAN ANATOMY TEACHER HISTORY: M25.571 - Pain in right ankle and joints of right foot COMPARISON: No comparisons available. Findings: There is a remote nonunited fracture of the medial malleolus. No acute fracture is identified Severe degenerative changes. Soft tissue swelling. Impression: No acute fracture or malalignment. Reviewed, dictated and finalized at location P. N ANATOMY TEACHER Impression: No acute fracture or malalignment.
--- OUTSIDE RECORDS SUMMARY | 2025-05-20 17:33 | XMS_ITS | Clinical Summary ---
Author Organization [facility] Address [address] [place] [address] Care Team Providers Care Filling And Stapling Machine Operator Name Role Phone Cisco Liz DO Primary Care Provider Allergies No known active allergies Medications atenoloL (TENORMIN) 50 mg tablet Take 50 mg by mouth daily. Active amLODIPine (NORVASC) 5 mg tablet Take 5 mg by mouth daily. Active aspirin (TIM CHEWABLE) 81 mg Tablet, Chewable Take 81 mg by mouth daily. Active pantoprazole (PROTONIX) 40 mg Tablet, Delayed Release (E.C.) 12/25/2024 Acti ve calcium CITRATE-vitamin D3 (CITRACAL D MAX) 315 mg-6.25 mcg (250 unit) Tablet Take by mouth 2 times daily as needed. Active ferrous sulfate 325 mg (65 mg iron) tablet 01/16/2023 Active Active Problems No known active problems Encounters Date Type Department Care Team Description 04/30/2025 External Device Data STL ABSTRACTION Provider, Abstract 04/23/2025 External Device Data ST[facility] ABSTRACTION Provider, Abstract 03/04/2025 External Device Data ST[facility] ABSTRACTION Provider, Abstract 02/19/2025 External Device Data ST[facility] ABSTRACTION Provider, Abstract from Last 3 Months Family History Medical History Relation Name Comments Lung Cancer Brother Leukemia Mother Heart Disease Sister Lung Cancer Sister Relation Name Status Comments Brother Daughter 1 Alive Daughter 2 Alive Father Mother Sister Son 1 Alive Son 2 Alive Son 3 Alive Social History Tobacco Use Types Packs/Day Years Used Date Smoking Tobacco: Former Cigarettes 0.5 67 Q uit: 12/24/2024 Smokeless Tobacco: Never Alcohol Use Standard Drinks/Week Comments Not Currently 0 (1 standard drink = 0.6 oz pur e alcohol) sometimes monthly Comments Unknown Sex and Gender Information Value Date Recorded Sex Assigned at Not on file Legal Sex Female 7:58 AM CDT Gender Identity Not on file Sexual Orientation Not on file Last Filed Vital Signs Vital Sign Reading Time Taken Comments Blood Pressure 137/69 01/02/2025 11:38 AM CDT Pulse 78 01/02/2025 11:38 AM CDT Temperature 36.7 C (98.1 F) 01/02/2025 11:38 AM CDT Respiratory Rate 15 01/02/2025 11:3 8 AM CDT Oxygen Saturation 96% 01/02/2025 11: 38 AM CDT Inhaled Oxygen Concentration - - Weight 55.7 kg (122 lb 12.8 oz) 025 11:38 AM CDT Height 160 cm (5' 3) 11/22/2022 1:24 PM CDT Body Mass Index 21.75 11/22/2022 1:24 PM CDT Plan of Treatment Upcoming Encounters Date Type Department Care Team (Late st Contact Info) Description 07/07/2025 11:00 AM MERINGUER Office Visit [facility] - [place] [address] [facility] [address] [place] [address] Kamari Hansen MD [address] [facility] [address] [place] [address] Health Maintenance Due Date Last Done Comments DTAP/TDAP/TD VACCINES (1 - Tdap) 1954 PNEUMOCOCCAL VACCINE 50+ YEARS (1 of 1 - PCV) 12/05/18 88 ZOSTER VACCINE (1 of 2) 12/06/1987 OSTEOPOROSIS SCREENING 2002 RSV VACCINE (60+ or ) (1 - 1-dose 75+ series) 2012 INFLUENZA VACCINE (#1) 2025 Insurance [facility] [place] [address] MEDICARE PART A AND B Care Teams Filling And Stapling Machine Operator Relationship Specialty Start Date End Date Cisco Liz DO [address] [place] [address] PCP - General Family Practice 11/22/22
--- OUTSIDE RECORDS SUMMARY | 2025-05-20 17:33 | XMS_ITS | Patient Health Record ---
Author Organization [facility] Address [address] [place], [place] [address] Care Team Providers Care Tie Binder Name Role Phone AMANDA Resendez Unavailable [phone] Carter Acharya Unavailable Unavailable Reason For Referral No Information Social History Social History Additional Details Category Social Info Options Details Migrated Social History Migrated Social History History of tobacco use : Current every day smoker , Smoking Status : Current every day smoker , Alcohol intake : Plan Of Treatment No Information Insurance Providers Payer Name Payer Address Payer Phone Subscriber Number Group Number Insured Name Patient Relationship to Insured Coverage Start Date Coverage End Date Medicare Part B [place] [address] [place] [address] [id number] SERGEY NAVA Self - patient is the insured [facility] Insurance [address] [address] [place] [address] [id number] SERGEY NAVA Self - patient is the insured
--- OUTSIDE RECORDS SUMMARY | 2025-05-20 17:34 | XMS_ITS | Encounter Summary ---
Author Organization [facility] Address [address] [place] [address] Care Team Providers Care Dispatcher Maintenance Service Name Role Phone Cisco Liz DO Primary Care Provider [phone] Tristan Smith MD Unavailable [phone] Encounter Details Date Type Department Care Team (Late Contact Info) Description 05/16/2025 Orders Only [facility] [address] [place] [address] Tristan Smith MD [address] [place] [id number] [place] [address] Social History Tobacco Use Types Packs/Day Years [...] Encounters Date Type Department Care Team (Late Contact Info) Description 05/21/2025 10:30 AM SOLAR SALES ADVISOR Appointment [facility] [address] [facility] [place] [address] Tristan Smith MD [address] [facility], [address] [address] 05/23/2025 10:30 AM SOLAR SALES ADVISOR Appointment [facility] [address] [place] [address] Tristan Smith MD [address], [address] [address] 05/26/2025 10:30 AM SOLAR SALES ADVISOR Appointment [facility] [place] [address] Tristan Smith MD [address], [address] [address] 05/28/2025 10:30 AM SOLAR SALES ADVISOR Appointment [facility] [place] [address] Tristan Smith MD [address], [address] [address] 05/30/2025 10:30 AM SOLAR SALES ADVISOR Appointment [facility] [place] [address] Tristan Smith MD [address], [address] [address] 06/02/2025 10:30 AM SOLAR SALES ADVISOR Appointment [facility] [place] [address] Tristan Smith MD [address], [address] [address] 06/04/2025 10:30 AM SOLAR SALES ADVISOR Appointment [facility] [place] [address] Tristan Smith MD [address], [address] [address] 06/06/2025 10:30 AM SOLAR SALES ADVISOR Appointment [facility] [place] [address] Tristan Smith MD [address], [address] [address] 06/09/2025 10:30 AM SOLAR SALES ADVISOR Appointment [facility] [place] [address] Tristan Smith MD [address], [address] [address] 06/11/2025 10:30 AM SOLAR SALES ADVISOR Appointment [facility] [place] [address] Tristan Smith MD [address], [address] [address] 06/13/2025 10:30 AM SOLAR SALES ADVISOR Appointment [facility] [place] [address] Tristan Smith MD [address], [address] [address] 06/16/2025 10:30 AM SOLAR SALES ADVISOR Appointment [facility] [place] [address] Tristan Smith MD [address], [address] [address] 06/18/2025 10:30 AM SOLAR SALES ADVISOR Appointment [facility] [place] [address] Tristan Smith MD [address], [address] [address] 06/20/2025 10:30 AM SOLAR SALES ADVISOR Appointment [facility] [place] [address] Tristan Smith MD [address], [address] [address] 06/23/2025 10:30 AM SOLAR SALES ADVISOR Appointment [facility] [place] [address] Tristan Smith MD [address], [address] [address] 06/25/2025 10:30 AM SOLAR SALES ADVISOR Appointment [facility] [place] [address] Tristan Smith MD [address], [address] [address] 06/27/2025 10:30 AM SOLAR SALES ADVISOR Appointment [facility] [place] [address] Tristan Smith MD [address], [address] [address] 06/30/2025 10:30 AM SOLAR SALES ADVISOR Appointment [facility] [place] [address] Tristan Smith MD [address], [address] [address] 07/02/2025 10:30 AM SOLAR SALES ADVISOR Appointment [facility] [place] [address] Tristan Smith MD [address], [address] [address] 07/04/2025 10:30 AM SOLAR SALES ADVISOR Appointment [facility] [address] [place] [address] Tristan Smith MD [address], [address] [address] 07/07/2025 10:30 AM SOLAR SALES ADVISOR Appointment [facility] [address] [place] [address] Tristan Smith MD [address], [address] [address] 07/09/2025 10:30 AM SOLAR SALES ADVISOR Appointment [facility] [address] [place] [address] Tristan Smith MD [address], [address] [address] 07/11/2025 10:30 AM SOLAR SALES ADVISOR Appointment [facility] [place] [address] Tristan Smith MD [address], [address] [address] 07/14/2025 10:30 AM SOLAR SALES ADVISOR Appointment [facility] [address] [place] [address] Tristan Smith MD [address], [address] [address] 07/16/2025 10:30 AM SOLAR SALES ADVISOR Appointment [facility] [place] [address] Tristan Smith MD [address], [address] [address] 07/18/2025 10:30 AM SOLAR SALES ADVISOR Appointment [facility] [address] [place] [address] Tristan Smith MD [address], [address] [address] 07/21/2025 10:30 AM SOLAR SALES ADVISOR Appointment [facility] [address] [place] [address] Tristan Smith MD [address], [address] [address] 07/23/2025 10:30 AM SOLAR SALES ADVISOR Appointment [facility] [place] [address] Tristan Smith MD [address] [address], [address] [address] 07/25/2025 10:30 AM SOLAR SALES ADVISOR Appointment [facility] [place] [address] Tristan Smith MD [address], [address] [address] 07/28/2025 10:30 AM SOLAR SALES ADVISOR Appointment [facility] [place] [address] Tristan Smith MD [address], [address] [address] 07/30/2025 10:30 AM SOLAR SALES ADVISOR Appointment [facility] [place] [address] Tristan Smith MD [address] [address] 08/01/2025 10:30 AM SOLAR SALES ADVISOR Appointment [facility] [address] [place] [address] [place] [address] Tristan Smith MD [address] [facility] [address] [address] 08/04/2025 10:30 AM SOLAR SALES ADVISOR Appointment [facility] [address] [place] [address] [place] [address] Tristan Smith MD [address] [facility] [address] [address] 08/26/2025 11:00 AM SOLAR SALES ADVISOR Office Visit [facility] [place] [address] Tristan Smith MD [address] [address] documented as of this encounter Visit Diagnoses Diagnosis PAD (peripheral artery disease)- Primary Peripheral vascular disease, unspecified documented in this encounter Care Teams Dispatcher Maintenance Service Relationship Specialty Start Date End Date Cisco Liz DO [address] [place] [address] PCP - General FAMILY PRACTICE 04/18/23 Tristan Smith MD [address] , [address] [address] Physician INTERVENTIONAL CARDIOLOGY 10/04/24 documented as of this encounter
--- OUTSIDE RECORDS SUMMARY | 2025-05-20 17:34 | XMS_ITS | Encounter Summary ---
Author Organization [facility] Address [address] [place] [address] Care Team Providers Care Manager Development Name Role Phone Cisco Liz Primary Care Provider [phone] Tristan Smith MD Unavailable [phone] Encounter Details Date Type Department Care Team ([facility] Contact Info) Description 03/31/2025 Prep for Procedure [facility] [address] [place] [address] Tristan Smith MD [address] [facility] [address] [place] [address] Social History Tobacco Use Types [...] on file documented as of this encounter Functional Status * Calculated C-SSRS Risk Score (Lifetime/Recent) Answer Date of Assessment Author Status No Risk Indicated 04/03/2025 7:57 AM CDT Halina Gonzales RN Active * Reading Suicide Severity Rating Scale (Screener/Recent Self-Report) Question Answer Date of Assessment Author Status 1. Wish to be (Past 1 Month) No 04/03/2025 7:57 AM CDT Jodi Gonzales RN Act vee 2. Non-Specific Active Suicidal Thoughts (Past 1 Month) No 04/03/2025 7:57 AM LEVYT Jodi Gonzales RN Act vee 6. Suicidal Behavior (Lifetime) No 04/03/2025 7:57 AM Jodi Mendez RN Act vee documented as of this encounter Plan of Treatment Upcoming Encounters Date Type Department Care Team (Late st Contact Info) Description 05/21/2025 10:30 AM AIRPLANE FLIGHT ATTENDANT SUPERVISOR Appointment [facility] [address] [place] [address] Tristan Smith MD [address], [address] [address] 05/23/2025 10:30 AM AIRPLANE FLIGHT ATTENDANT SUPERVISOR Appointment [facility] [place] [address] Tristan Smith MD [address], [address] [address] 05/26/2025 10:30 AM AIRPLANE FLIGHT ATTENDANT SUPERVISOR Appointment [facility] [place] [address] Tristan Smith MD [address], [address] [address] 05/28/2025 10:30 AM AIRPLANE FLIGHT ATTENDANT SUPERVISOR Appointment [facility] [place] [address] Tristan Smith MD [address], [address] [address] 05/30/2025 10:30 AM AIRPLANE FLIGHT ATTENDANT SUPERVISOR Appointment [facility] [place] [address] Tristan Smith MD [address], [address] [address] 06/02/2025 10:30 AM AIRPLANE FLIGHT ATTENDANT SUPERVISOR Appointment [facility] [address] [place] [address] Tristan Smith MD [address], [address] [address] 06/04/2025 10:30 AM AIRPLANE FLIGHT ATTENDANT SUPERVISOR Appointment [facility] [address] [place] [address] Tristan Smith MD [address], [address] [address] 06/06/2025 10:30 AM AIRPLANE FLIGHT ATTENDANT SUPERVISOR Appointment [facility] [place] [address] Tristan Smith MD [address], [address] [address] 06/09/2025 10:30 AM AIRPLANE FLIGHT ATTENDANT SUPERVISOR Appointment [facility] [place] [address] Tristan Smith MD [address], [address] [address] 06/11/2025 10:30 AM AIRPLANE FLIGHT ATTENDANT SUPERVISOR Appointment [facility] [place] [address] Tristan Smith MD [address], [address] [address] 06/13/2025 10:30 AM AIRPLANE FLIGHT ATTENDANT SUPERVISOR Appointment [facility] [place] [address] Tristan Smith MD [address], [address] [address] 06/16/2025 10:30 AM AIRPLANE FLIGHT ATTENDANT SUPERVISOR Appointment [facility] [address] [place] [address] Tristan Smith MD [address], [address] [address] 06/18/2025 10:30 AM AIRPLANE FLIGHT ATTENDANT SUPERVISOR Appointment [facility] [place] [address] Tristan Smith MD [address], [address] [address] 06/20/2025 10:30 AM AIRPLANE FLIGHT ATTENDANT SUPERVISOR Appointment [facility] [place] [address] Tristan Smith MD [address], [address] [address] 06/23/2025 10:30 AM AIRPLANE FLIGHT ATTENDANT SUPERVISOR Appointment [facility] [place] [address] Tristan Smith MD [address], [address] [address] 06/25/2025 10:30 AM AIRPLANE FLIGHT ATTENDANT SUPERVISOR Appointment [facility] [place] [address] Tristan Smith MD [address], [address] [address] 06/27/2025 10:30 AM AIRPLANE FLIGHT ATTENDANT SUPERVISOR Appointment [facility] [place] [address] Tristan Smith MD [address], [address] [address] 06/30/2025 10:30 AM AIRPLANE FLIGHT ATTENDANT SUPERVISOR Appointment [facility] [address] [place] [address] Tristan Smith MD [address], [address] [address] 07/02/2025 10:30 AM AIRPLANE FLIGHT ATTENDANT SUPERVISOR Appointment [facility] [place] [address] Tristan Smith MD [address], [address] [address] 07/04/2025 10:30 AM AIRPLANE FLIGHT ATTENDANT SUPERVISOR Appointment [facility] [place] [address] Tristan Smith MD [address], [address] [address] 07/07/2025 10:30 AM AIRPLANE FLIGHT ATTENDANT SUPERVISOR Appointment [facility] [place] [address] Tristan Smith MD [address], [address] [address] 07/09/2025 10:30 AM AIRPLANE FLIGHT ATTENDANT SUPERVISOR Appointment [facility] [place] [address] Tristan Smith MD [address], [address] [address] 07/11/2025 10:30 AM AIRPLANE FLIGHT ATTENDANT SUPERVISOR Appointment [facility] [place] [address] Tristan Smith MD [address], [address] [address] 07/14/2025 10:30 AM AIRPLANE FLIGHT ATTENDANT SUPERVISOR Appointment [facility] [address] [place] [address] Tristan Smith MD [address], [address] [address] 07/16/2025 10:30 AM AIRPLANE FLIGHT ATTENDANT SUPERVISOR Appointment [facility] [address] [place] [address] Tristan Smith MD [address], [address] [address] 07/18/2025 10:30 AM AIRPLANE FLIGHT ATTENDANT SUPERVISOR Appointment [facility] [address] [place] [address] Tristan Smith MD [address], [address] [address] 07/21/2025 10:30 AM AIRPLANE FLIGHT ATTENDANT SUPERVISOR Appointment [facility] [place] [address] Tristan Smith MD [address], [address] [address] 07/23/2025 10:30 AM AIRPLANE FLIGHT ATTENDANT SUPERVISOR Appointment [facility] [place] [address] Tristan Smith MD [address], [address] [address] 07/25/2025 10:30 AM AIRPLANE FLIGHT ATTENDANT SUPERVISOR Appointment [facility] [place] [address] Tristan Smith MD [address], [address] [address] 07/28/2025 10:30 AM AIRPLANE FLIGHT ATTENDANT SUPERVISOR Appointment [facility] [address] [place] [address] Tristan Smith MD [address], [address] [address] 07/30/2025 10:30 AM AIRPLANE FLIGHT ATTENDANT SUPERVISOR Appointment [facility] [place] [address] Tristan Smith MD [address], [address] [address] 08/01/2025 10:30 AM AIRPLANE FLIGHT ATTENDANT SUPERVISOR Appointment [facility] [place] [address] Tristan Smith MD [address], [address] [address] 08/04/2025 10:30 AM AIRPLANE FLIGHT ATTENDANT SUPERVISOR Appointment [facility] [place] [address] Tristan Smith MD [address], [address] [address] 08/26/2025 11:00 AM AIRPLANE FLIGHT ATTENDANT SUPERVISOR Office Visit [facility] [place] [address] Tristan Smith MD [address], [address] [address] documented as of this encounter Visit Diagnoses Not on filedocumented in this encounter Care Teams Manager Development Relationship Specialty Start Date End Date Buschling, Cisco, DO [address] [place] [address] PCP - General FAMILY PRACTICE 04/18/23 Tristan Smith MD [address] [facility] [address] [address] Physician INTERVENTIONAL CARDIOLOGY 10/04/24 documented as of this encounter
--- OUTSIDE RECORDS SUMMARY | 2025-05-20 17:34 | XMS_ITS | Clinical Summary ---
Author Organization [facility] Address [address] [place] [address] Care Team Providers Care Experimental Electronics Developer Name Role Phone Cisco Liz DO Primary Care Provider [phone] Tristan Mendoza MD Unavailable [phone] Allergies No known active allergies Medications amLODIPine (NORVASC) 5 MG tablet Take 1 tablet (5 mg total) by mouth daily. 09/30/19 23 Active atenolol (TENORMIN) 50 MG tablet Take 1 tablet (50 mg total) by mouth daily. 03/21/20 23 Active atorvastatin (LIPITOR) 40 MG tablet Take 1 tablet (40 mg total) by mouth daily. 04/10/20 23 Active Ferrous Sulfate (IRON) 325 (65 Fe) MG tablet Take 325 mg by mouth daily with breakfast. 01/17/20 23 Active lisinopril (PRINIVIL) 20 MG tablet Take 1 tablet (20 mg total) by mouth daily. 04/10/20 23 Active calcium citrate-vitamin D 315 mg-6.25 mcg 315-6.25 MG-MCG Tab tablet Take 1 tablet by mouth daily. Active ibuprofen (MOTRIN) 800 MG tablet Take 1 tablet (800 mg total) by mouth every 6 (six) hours as needed for Pain or Fever. 07/18/19 25 Active pantoprazole EC (PROTONIX) 40 MG tablet Take 1 tablet (40 mg total) by mouth daily. 12/26/19 25 Active vitamin B-12 (CYANOCOBALAMIN ) 500 MCG tablet Take 1 tablet (500 mcg total) by mouth daily. Active magnesium oxide (MAG-OX) 250 MG tablet Take 1 tablet (250 mg total) by mouth daily. Active clopidogrel (PLAVIX) 75 MG tablet Take 1 tablet (75 mg total) by mouth daily. 90 tablet 3 04/04/20 25 026 Active NICOTINE TRANSDERMAL SYSTEM TD Place 1 Application onto the skin once a week. Active cilostazol (PLETAL) 100 MG tablet TAKE 1/2 TABLET BY MOUTH TWICE A DAY 60 tablet 5 05/02/20 25 Active traMADol (ULTRAM) 50 MG tabletIndicatio ns:Acute Pain < 7 Day Supply,Right leg pain Take 1 tablet (50 mg total) by mouth every 6 (six) hours as needed for Pain. Indications: Acute Pain < 7 Day Supply, Right leg pain 14 tablet 05/16/20 25 025 Active cilostazol (PLETAL) 100 MG tablet TAKE 1/2 TABLET BY MOUTH TWICE A DAY 60 tablet 02/27/20 25 025 Discontinued traMADol (ULTRAM) 25 MG tabletIndicatio ns:Acute Pain < 7 Day Supply Take 1 tablet (25 mg total) by mouth 2 (two) times daily as needed for Pain. Indications: Acute Pain < 7 Day Supply 14 tablet 04/15/20 25 025 Active Problems Problem Noted Date Diagnosed Date Coronary artery disease invo lving united auburn coronary artery of united auburn heart without angina pectoris 12/17/2024 Primary hypertension 05/10/2023 PAD (peripheral artery disease) 05/05/2023 Hyperlipidemia, unspecified hyperlipidemia type 05/05/2023 Other secondary hypertension 05/05/2023 Encounters Date Type Department Care Team Description 05/19/2025 10:30 AM [facility] Hospital Encounter [facility] [address] [place] [address] Tristan Mendoza MD Arrived 05/19/2025 Travel 05/16/2025 10:25 AM MANAGEMENT MANAGER - 05/16/2025 11:59 PM [facility] Hospital Encounter [facility] [address] [place] [address] Tristan Mendoza MD Discharge Disposition: Home or Self Care (Routine Discharge) 05/16/2025 Orders Only [facility] [address] [place] [address] Tristan Mendoza MD 05/16/2025 Travel 05/14/2025 10:26 AM MANAGEMENT MANAGER - 05/14/2025 11:59 PM MANAGEMENT MANAGER Hospital Encounter [facility] [address] [facility] [place] [address] Tristan Mendoza MD Discharge Disposition: Home or Self Care (Routine Discharge) 05/14/2025 Telephone [facility] [address] [place] [address] Tristan Mendoza MD Problem 05/14/2025 Travel 05/12/2025 10:55 AM MANAGEMENT MANAGER - 05/12/2025 11:59 PM MANAGEMENT MANAGER Hospital Encounter [facility] [address] [place] [address] [place] [address] Tristan Mendoza MD Discharge Disposition: Home or Self Care (Routine Discharge) 05/12/2025 Travel 05/07/2025 10:40 AM MANAGEMENT MANAGER - 05/07/2025 11:59 PM MANAGEMENT MANAGER Hospital Encounter [facility] [address] [place] [address] [place] [address] Tristan Mendoza MD Discharge Disposition: Home or Self Care (Routine Discharge) 05/07/2025 Travel 04/21/2025 Telephone [facility] [address] [place] [address] Tristan Mendoza MD Cardiac Rehab (SET) 04/21/2025 Telephone [facility] [address] [place] [address] Tristan Mendoza MD Appointment Request 04/15/2025 3:30 PM CDT Office Visit [facility] [address] [place] [address] Tristan Mendoza MD Peripheral Vascular Disease; Follow Up; Hyperlipidemia 04/15/2025 2:25 PM CDT - 04/15/2025 11:59 PM CDT Hospital Encounter [facility] [place] [address] Tristan Mendoza MD Discharge Disposition: Home or Self Care (Routine Discharge) 04/15/2025 Travel 04/14/2025 Telephone [facility] [address] [place] [address] Tristan Mendoza MD Appointment Request 04/04/2025 Telephone [facility] [address] [place] [address] Tristan Mendoza MD Refill Request 04/03/2025 7:28 AM CDT - 04/03/2025 4:18 PM CDT Hospital Encounter [facility] Pre/Post [address] [place] [address] Tristan Mendoza MD Discharge Disposition: Home or Self Care (Routine Discharge) 04/03/2025 Travel 04/01/2025 8:55 AM CDT - 04/01/2025 11:59 PM CDT Hospital Encounter [facility] [address] [facility] [place] [address] Tristan Mendoza MD Discharge Disposition: Home or Self Care (Routine Discharge) 04/01/2025 Travel 03/31/2025 Prep for Procedure [facility] [address] [place] [address] Tristan Mendoza MD 03/19/2025 Telephone [facility] [address] [place] [address] Tristan Mendoza MD Schedule Procedure 03/18/2025 1:00 PM CDT Office Visit [facility] [address] [place] [address] Tristan Mendoza MD Follow Up (Test results) 03/18/2025 Travel 03/17/2025 Telephone [facility] [address] [place] [address] Tristan Mendoza MD Appointment Reminder from Last 3 Months Family History Medical History Relation Comments htn Father Leukemia Mother Relation Status Comments Father Maternal Grandfather Maternal Grandmother Mother Paternal Grandfather Paternal Grandmother Social History Tobacco Use Types Packs/Day Years Used Date Smoking Tobacco: Every Day Cigarettes Smokeless Tobacco: Never Tobacco Cessation:Ready to Q uit: Yes; Counseling Given: Not Answered Alcohol Use Standard Drinks/Week Comments Never 0 [...] file Not on file Not on file Last Filed Vital Signs Vital Sign Reading Time Taken Comments Blood Pressure 170/80 04/15/2025 4:21 PM CDT Pulse 59 04/03/2025 8:12 AM CDT Temperature 36.1 C (97 F) 04/03/2025 8:12 AM CDT Respiratory Rate 16 04/15/2025 4:05 PM CDT Oxygen Saturation 100% 04/15/2025 4:05 PM CDT Inhaled Oxygen Concentration - - Weight 55.4 kg (122 lb 3.2 oz) 04/15/2025 4:05 P M CDT Height 157.5 cm (5' 2) 04/15/2025 4:05 PM CDT Body Mass Index 22.35 04/15/2025 4:05 PM CDT Plan of Treatment Upcoming Encounters Date Type Department Care Team (Late st Contact Info) Description 05/21/2025 10:30 AM MANAGEMENT MANAGER Appointment [facility] [address] [address] Tristan Mendoza MD [facility] [address] [facility] [place] [id number] [place], [place] [id number] 05/23/2025 10:30 AM MANAGEMENT MANAGER Appointment [facility] [address] [place] [address] Tristan Mendoza MD [address] [facility], [address] [address] 05/26/2025 10:30 AM MANAGEMENT MANAGER Appointment [facility] [address] [place] [address] Tristan Mendoza MD [address], [address] [address] 05/28/2025 10:30 AM MANAGEMENT MANAGER Appointment [facility] [address] [place] [address] Tristan Mendoza MD [address], [address] [address] 05/30/2025 10:30 AM MANAGEMENT MANAGER Appointment [facility] [place] [address] Tristan Mendoza MD [address] [address], [address] [address] 06/02/2025 10:30 AM MANAGEMENT MANAGER Appointment [facility] [place] [address] Tristan Mendoza MD [address] [address], [address] [address] 06/04/2025 10:30 AM MANAGEMENT MANAGER Appointment [facility] [place] [address] Tristan Mendoza MD [address], [address] [address] 06/06/2025 10:30 AM MANAGEMENT MANAGER Appointment [facility] [place] [address] Tristan Mendoza MD [address], [address] [address] 06/09/2025 10:30 AM MANAGEMENT MANAGER Appointment [facility] [address] [place] [address] Tristan Mendoza MD [address], [address] [address] 06/11/2025 10:30 AM MANAGEMENT MANAGER Appointment [facility] [address] [place] [address] Tristan Mendoza MD [address], [address] [address] 06/13/2025 10:30 AM MANAGEMENT MANAGER Appointment [facility] [place] [address] Tristan Mendoza MD [address], [address] [address] 06/16/2025 10:30 AM MANAGEMENT MANAGER Appointment [facility] [place] [address] Tristan Mendoza MD [address], [address] [address] 06/18/2025 10:30 AM MANAGEMENT MANAGER Appointment [facility] [place] [address] Tristan Mendoza MD [address], [address] [address] 06/20/2025 10:30 AM MANAGEMENT MANAGER Appointment [facility] [address] [place] [address] Tristan Mendoza MD [address], [address] [address] 06/23/2025 10:30 AM MANAGEMENT MANAGER Appointment [facility] [address] [place] [address] Tristan Mendoza MD [address], [address] [address] 06/25/2025 10:30 AM MANAGEMENT MANAGER Appointment [facility] [place] [address] Tristan Mendoza MD [address], [address] [address] 06/27/2025 10:30 AM MANAGEMENT MANAGER Appointment [facility] [place] [address] Tristan Mendoza MD [address], [address] [address] 06/30/2025 10:30 AM MANAGEMENT MANAGER Appointment [facility] [place] [address] Tristan Mendoza MD [address], [address] [address] 07/02/2025 10:30 AM MANAGEMENT MANAGER Appointment [facility] [place] [address] Tristan Mendoza MD [address], [address] [address] 07/04/2025 10:30 AM MANAGEMENT MANAGER Appointment [facility] [place] [address] Tristan Mendoza MD [address], [address] [address] 07/07/2025 10:30 AM MANAGEMENT MANAGER Appointment [facility] [address] [place] [address] Tristan Mendoza MD [address], [address] [address] 07/09/2025 10:30 AM MANAGEMENT MANAGER Appointment [facility] [address] [place] [address] Tristan Mendoza MD [address], [address] [address] 07/11/2025 10:30 AM MANAGEMENT MANAGER Appointment [facility] [place] [address] Tristan Mendoza MD [address], [address] [address] 07/14/2025 10:30 AM MANAGEMENT MANAGER Appointment [facility] [place] [address] Tristan Mendoza MD [address], [address] [address] 07/16/2025 10:30 AM MANAGEMENT MANAGER Appointment [facility] [place] [address] Tristan Mendoza MD [address], [address] [address] 07/18/2025 10:30 AM MANAGEMENT MANAGER App[facility]ment [facility] [place] [address] Tristan Mendoza MD [address], [address] [address] 07/21/2025 10:30 AM MANAGEMENT MANAGER Appointment [facility] [address] [place] [address] Tristan Mendoza MD [address], [address] [address] 07/23/2025 10:30 AM MANAGEMENT MANAGER Appointment [facility] [address] [place] [address] Tristan Mendoza MD [address], [address] [address] 07/25/2025 10:30 AM MANAGEMENT MANAGER Appointment [facility] [place] [address] Tristan Mendoza MD [address], [address] [address] 07/28/2025 10:30 AM MANAGEMENT MANAGER Appointment [facility] [place] [address] Tristan Mendoza MD [address], [address] [address] 07/30/2025 10:30 AM MANAGEMENT MANAGER Appointment [facility] [place] [address] Tristan Mendoza MD [address], [address] [address] 08/01/2025 10:30 AM MANAGEMENT MANAGER Appointment [facility] [place] [address] Tristan Mendoza MD [address] [facility], [address] [address] 08/04/2025 10:30 AM MANAGEMENT MANAGER Appointment [facility] [address] [place] [address] [place] [address] Tristan Mendoza MD [address] [facility], [address] [address] 08/26/2025 11:00 AM MANAGEMENT MANAGER Office Visit [facility] [address] [place] [place] [address] Tristan Mendoza MD [address] [place] [address], [address] [id number] Health Maintenance Due Date Last Done Comments ASCVD Statin 1935 Zoster Vaccines (1 of 2) 12/06/1987 Annual Medicare Wellness Visit 2002 ASCVD LDL 11/19/2005 11/19/2004 RSV Immunization or 60+ Years (1 - 1-dose 75+ series) 2012 DTaP, Tdap and Td Vaccines (2 - Td or Tdap) 01/22/2024 01/21/2014 COVID-19 Vaccine ( - season) 2025 08/28/2020, 07/31/2020 Influenza Adult (#1) 2025 05/13/2024, 06/28/2021, 05/01/2021, Additional history exists Pneumococcal Vaccine: 50+ Years Completed 11/03/2020, 05/03/2018 Hepatitis A Vaccines Aged Out No long er eligible based on patient's age to complete this topic Meningococcal B Vaccine Aged Out No l onger eligible based on patient's age to complete this topic Meningococcal Vaccine Aged Out No vern ariana eligible based on patient's age to complete this topic RSV Immunizations Under 20 Months Aged Out No longer eligible based on patient's age to complete this topic Procedures Procedure Name Priority Date/Time Associated Diagnosis Comments USV MARIELLE DUPLEX LOW EXT RT OLIVE 04/15/2025 3:06 PM CDT Pain and swelling of right knee Localized edema POCT ACTIVATED CLOTTING TIME - ISTAT DOCKED DEVICE Routine 04/03/2025 12:49 PM CDT POCT ACTIVATED CLOTTING TIME - ISTAT DOCKED DEVICE Routine 04/03/2025 11:56 AM CDT REVASCULARIZATION, ENDOVASCULAR, OPEN OR PERCT 04/03/2025 11:14 AM CDT XA PERIPHERAL INTERVENTION Routine 04/03/2025 10:59 AM CDT PAD (peripheral artery disease) POCT ACTIVATED CLOTTING TIME - ISTAT DOCKED DEVICE Routine 04/03/2025 10:50 AM CDT POCT ACTIVATED CLOTTING TIME - ISTAT DOCKED DEVICE Routine 04/03/2025 10:35 AM CDT POCT ACTIVATED CLOTTING TIME - ISTAT DOCKED DEVICE Routine 04/03/2025 10:14 AM CDT ECG 12-LEAD STAT 04/03/2025 8:19 AM CDT HC BASIC METABOLIC PANEL Routine 04/01/2025 9:11 AM CDT PAD (peripheral artery disease) Coronary artery disease involving united auburn coronary artery of united auburn heart without angina pectoris HC CBC W/O DIFF Routine 04/01/2025 9:11 AM CDT PAD (peripheral artery disease) Coronary artery disease involving united auburn coronary artery of united auburn heart without angina pectoris LIPID PANEL Routine 11/19/2004 11:02 AM CDT from Last 3 Months or Most Recently Relevant to Health Maintenance Results * USV MARIELLE DUPLEX LOW EXT RT (04/15/2025 3:06 PM CDT) Anatomical Region Laterality Modality Extremity Ultrasound 04/15/2025 2:37 PM CDT Narrative 04/18/2025 1:55 PM CDT Outreach Venous Duplex Scan Lower Extremity Vascular Report Pat.Name: Sergey Nava Pat.ID: [id number] .Date: 04/15/2025 Refer.MD: [facility] Exam Time: 2:37:00 PM Study Type:OUTREACH VENOUS DUPLEX SCAN LOWER EXTREMITY Height: 62 in Age: 8 1935,89Y Sex: F Sonogrphr: Hw Pat. Stat.:Outpatient CPT - 4: 04304 Venous Duplex LE/UE Reason for Study:Pain and swelling of right knee, Localized edema, R/O DVT Procedures: Study performed at [place], [place] and interpreted by [facility]. LE Venous - Right ++++++++++++++++++++++++++++++++++++ SUMMARY: ++++++++++++++++++++++++++++++++++++ Rt Lower Ext: No evidence of acute or chronic thrombosis noted in the deep or superficial veins in the right lower extremity. ++++++++++++++++++++++++++++++++++++ FINDINGS: ++++++++++++++++++++++++++++++++++++ Rt Lower Ext: No evidence of acute or chronic thrombosis noted in the deep or superficial veins in the right lower extremity. The contralateral common femoral vein was assessed and found to be patent. <Electronic Signature> 04/18/2025 01:55 PM Tristan Mendoza M.D. Procedure Note Tristan Mendoza MD - 04/18/2025 Outreach Venous Duplex Scan Lower Extremity Vascular Report Pat.Name: Sergey Nava Pat.ID: [id number] .Date: 04/15/2025 Refer.MD: [facility] Exam Time: 2:37:00 PM Study Type:OUTREACH VENOUS DUPLEX SCAN LOWER EXTREMITY Height: 62 in Age: 8 1935,89Y Sex: F Sonogrphr: Hw Pat. Stat.:Outpatient CPT - 4: 47579 Venous Duplex LE/UE Reason for Study:Pain and swelling of right knee, Localized edema, R/O DVT Procedures: Study performed at [place], [place] and interpreted by [facility]. LE Venous - Right ++++++++++++++++++++++++++++++++++++ SUMMARY: ++++++++++++++++++++++++++++++++++++ Rt Lower Ext: No evidence of acute or chronic thrombosis noted in the deep or superficial veins in the right lower extremity. ++++++++++++++++++++++++++++++++++++ FINDINGS: ++++++++++++++++++++++++++++++++++++ Rt Lower Ext: No evidence of acute or chronic thrombosis noted in the deep or superficial veins in the right lower extremity. The contralateral common femoral vein was assessed and found to be patent. <Electronic Signature> 04/18/2025 01:55 PM Tristan Mendoza M.D. us Tristan Mendoza MD [facility] Final Result * (ABNORMAL) POCT ACTIVATED CLOTTING TIME - ISTAT DOCKED DEVICE (04/03/2025 12:49 PM CDT) Only the most recent of5 resultswithin the time period is included. ACTIVATED CLOTTING TIME (ACT HMT OR LMT) 199(H) 74 - 137 SEC 04/03/2025 12:51 PM CDT [facility] 04/03/2025 12:4 9 PM CDT us Tristan Mendoza MD POCT ORDERABLES - DEVICE Fin al Result [facility] [address] [place] [address], [id number] * REVASCULARIZATION, ENDOVASCULAR, OPEN OR PERCT (04/03/2025 11:14 AM CDT) Narrative Procedure Note Tristan Mendoza MD - 04/03/2025 11:14 AM CDT PROCEDURE NOTE: Indication-PAD Procedures- Ultrasound-guided access of the left common femoral artery Left common femoral artery angiogram Aortoiliac angiogram Selective right lower extremity angiogram Shockwave balloon lithotripsy of the right SFA Drug-coated balloon angioplasty of the right SFA Moderate sedation I performed moderate sedation using Versed and fentanyl. I supervised anddisalinas Vera who assisted in monitoring patient's level of consciousnessand physiological status throughout the procedure. Findings- Patient was brought to the cardiac catheterization lab in the usualfasting state benefits or side effects and alternatives were discussedinformed consent was obtained. Using micropuncture technique ultrasoundguidance the left common femoral artery was accessed, limited angiogramdid not reveal any significant disease, A pigtail catheter was placed in the distal abdominal aorta, aortoiliacangiogram was performed, digital subtraction technique was used,. Thisrevealed that there was no significant aneurysm or stenosis mild calcificdisease was noted, moderate calcific disease was noted in the right distalcommon iliac/external iliac artery. The right common femoral artery waspatent with mild disease. On the left side mild to moderate disease wasnoted in the left common iliac artery, external iliac artery. Bilateralinternal iliac arteries were significantly disease. Using an endhole catheter with the wire support the right common femoralartery was navigated to, angiography was performed This revealed that the right profunda femoris was widely patent, the rightsuperficial femoral artery was diffusely diseased from its ostium to themidportion and regained its caliber at the adductor canal. The vessel wascalcified with serial 80-90% narrowing. The popliteal artery was free ofany significant disease the tibioperoneal artery was free of anysignificant disease. Anterior tibial artery was occluded in its proximalportion the posterior tibial artery was free of any significant disease onthe seem to cross the ankle and supply the foot, the deep peroneal arterywas noted to the level of the ankle, And it was free of any significantdisease. A 6 Arabic 45 cm sheath was placed over the wire and advanced to the rightcommon femoral artery, using a microcatheter and 0.14 inch wire, wascarefully navigated and placed in the distal popliteal artery, balloonangioplasty was performed using a 3 mm balloon, repeat angiogram revealedimprovement in blood flow. The SFA disease segment was treated using a 4mm E8 shockwave balloon, serial treatment was delivered from distal to theproximal portion. A total of 400 pulses was used. Repeat angiogram revealed significantly improved blood flow there wasevidence of dissection in the midportion, this was linear and nonflowlimiting. We treated this segment using a 5 mm x 200 mm drug-coatedballoon,, the proximal SFA was treated with a 5 mm balloon angioplastyusing the same balloon. repeat angiogram revealed excellent result, SILVIA-3flow was noted, there was nonflow limiting linear dissection in the midSFA. We decided to treat this medically. Repeat angiogram revealed excellent result, SILVIA-3 flow was noted lesionwas reduced to 0%. Pullback pressure gradient across the right common iliac artery was notedto be around 30 mmHg. Wires and catheters were removed, patient tolerated the procedure well noimmediate hemodynamic complications were noted. Hemostasis-manual pressure will be held Contrast used-90 cc Complications-none Heparin was used according to the protocol, patient was given 600 mg atthe end of the procedure Impression- Severe peripheral arterial disease status post successful lithotripsy anddrug- coated balloon angioplasty of the right superficial femoral artery Recommendations- Return to ponce Hydration Dual antiplatelet therapy Discussed with patient/daughter Follow-up in clinic us Tristan Mendoza MD OTHER Final Result * XA PERIPHERAL INTERVENTION (04/03/2025 10:59 AM CDT) Anatomical Region Laterality Modality Chest, Abdomen, Renal, Extremity Orthopedics Teacher 04/03/2025 9:30 AM CDT us Tristan Mendoza MD [employer]DEP[employer]ENT [employer]IVING ADVISOR Final Result * ECG 12 lead (04/03/2025 8:19 AM CDT) 04/03/2025 8:19 AM CDT Narrative [facility] - 04/03/2025 7:08 PM CDT [facility] [address] [place] [address] Test Date: 2025-04-03 Pat Name: SERGEY NAVA Department: 1 Room: [address] Gender: Female 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: As : 1935 Requested By: TRISTAN MENDOZA Order Number: [id number] Reading MD: Tristan Mendoza Measurements Intervals [place] Rate: 57 P: 59 NH: 169 QRS: 58 QRSD: 75 T: 106 QT: 413 QTc: 402 Interpretive Statements SINUS BRADYCARDIA LOW QRS VOLTAGE IN PRECORDIAL LEADS [QRS DEFLECTION < 1.0 mV IN CHEST LEADS] NONSPECIFIC T-WAVE ABNORMALITY Procedure Note Tristan Mendoza MD - 04/03/2025 [facility] [address] [place] [address] Test Date: 2025-04-03 Pat Name: SERGEY NAVA Department: 1 Room: [address] Gender: Female 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: As : 1935 Requested By: TRISTAN MENDOZA Order Number: [id number] Reading : Tristan Mendoza Measurements Intervals [place] Rate: 57 P: 59 NH: 169 QRS: 58 QRSD: 75 T: 106 QT: 413 QTc: 402 Interpretive Statements SINUS BRADYCARDIA LOW QRS VOLTAGE IN PRECORDIAL LEADS [QRS DEFLECTION < 1.0 mV IN CHESTLEADS] NONSPECIFIC T-WAVE ABNORMALITY Tristan Mendoza MD ECG ORDERABLES Final Result [facility] * (ABNORMAL) BASIC METABOLIC PANEL (04/01/2025 9:11 AM CDT) SODIUM S/P/B 141 136 - 145 MMOL/L 04/01/2025 9:26 AM [facility] POTASSIUM S/P/B 4.2 3.5 - 5.1 MMOL/L 04/01/2025 9:26 AM [facility] CHLORIDE S/P/B 106 98 - 107 MMOL/L 04/01/2025 9:26 AM [facility] CO2 25.8 21.0 - 32.0 MMOL/L 04/01/2025 9:26 AM [facility] GLUCOSE 97 70 - 99 MG/DL 04/01/2025 9:26 AM [facility] Comment: FASTING GLUCOSE 100 TO 125 MG/DL IS CONSISTENT WITH IMPAIRED FASTING GLUCOSE. FASTING GLUCOSE >125 MG/DL IS CONSISTENT WITH DIABETES. RANDOM GLUCOSE >200 MG/DL WITH HYPERGLYCEMIC SYMPTOMS IS CONSISTENT WITH DIABETES. PER ADA GUIDELINES BUN 14 6 - 24 MG/DL 04/01/2025 9:26 AM [facility] CREATININE S/P/B 1.19(H) 0.55 - 1.02 MG/DL 04/01/2025 9:26 AM [facility] CALCIUM S/P/B 9.4 8.4 - 10.5 MG/DL 04/01/2025 9:26 AM [facility] ANION GAP 9.2 5.0 - 15.0 MMOL/L 04/01/2025 9:26 AM [facility] OSMOLALITY (CALC) 292 MOSM/KG 025 9:26 AM [facility] Comment:REFERENCE RANGE NOT ESTABLISHED GFR ESTIMATE 44(L) >89 ML/MIN/1. 73 M2 04/01/2025 9:26 AM [facility] GFR NOTES GFR REFERENCE S: 04/01/2025 9:26 AM [facility] Comment: THE ESTIMATED GFR IS CALCULATED USING THE 2020 CKD-EPI EQUATION. THE FOLLOWING CATEGORIES FOR GRADING RENAL FUNCTION ARE RECOMMENDED BY THE INTERNATIONAL SOCIETY OF NEPHROLOGY (KDIGO 2012 CLINICAL PRACTICE GUIDELINE). G1,NORMAL OR HIGH: >89 ml/min/1.73 m2 G2,MILDLY DECREASED: 60-89 ml/min/1.73 m2 G3A,MILDLY TO MODERATELY DECREASED: 45-59 ml/min/1.73 m2 G3B,MODERATELY TO SEVERELY DECREASED: 30-44 ml/min/1.73 m2 G4,SEVERELY DECREASED: 15-29 ml/min/1.73 m2 G5,KIDNEY FAILURE: <15 ml/min/1.73 m2 04/01/2025 9:11 AM CDT us Tristan Mendoza MD LABORATORY Final Result [facility] [address] [place] [address], * (ABNORMAL) CBC, AUTO, NO DIFF (04/01/2025 9:11 AM CDT) WBC 8.36 4.00 - 10.80 x10'3/uL 04/01/2025 9:18 AM CDT [facility] RBC 4.41 4.10 - 5.40 x10'6/uL 04/01/2025 9:18 AM CDT [facility] HGB 13.2 12.0 - 16.0 G/DL 04/01/2025 9:18 AM CDT [facility] HCT 40.9 36.0 - 47.0 % 04/01/2025 9:18 AM CDT [facility] MCV 92.7 78.0 - 100.0 FL 04/01/2025 9:18 AM CDT [facility] MCH 29.9 27.0 - 31.0 PG 04/01/2025 9:18 AM CDT [facility] MCHC 32.3(L) 33.0 - 36.0 G/DL 04/01/2025 9:18 AM CDT [facility] RDW 13.6 11.5 - 14.5 % 04/01/2025 9:18 AM CDT [facility] PLT 231 150 - 350 x10'3/uL 04/01/2025 9:18 AM CDT [facility] MPV 10.5(H) 7.4 - 10.4 FL 04/01/2025 9:18 AM CDT [facility] 04/01/2025 9:11 AM CDT Tristan Mendoza MD LABORATORY Final Result [facility] [address] [place] [address], * LIPID PANEL (11/19/2004 11:02 AM CDT) CHOLESTEROL 198 120 - 200 MG/DL MEDINFORMATIX TO EPIC CONVERSION TRIGLYCERIDES 57 10 - 190 MG/DL MEDINFORMATIX TO EPIC CONVERSION HDL 65 >40 MG/DL MEDINFORMA TIX TO EPIC CONVERSION CHOL/HDL RATIO 3.02 0.00 - 4.44 CH/HDL MEDINFORMATIX TO EPIC CONVERSION DIRECT LDL 125 MG/DL MEDINFORM ATIX TO EPIC CONVERSION LDL/HDL 1.9 0.0 - 5.0 MEDINFORMA TIX TO EPIC CONVERSION CALC VLVD CONVERSION 6 0 - 31 mg/dL MEDINFORMATIX TO EPIC CONVERSION 11/19/2004 11:0 2 AM CDT 11/19/2004 11:02 AM CDT Narrative MEDINFORMATIX TO EPIC CONVERSION - 11/19/2004 3:15 PM CDT Reviewed by ALYSSA Nov 23 2004 1:10:00:000PM us Generic Conversion Md [facility] Final R esult MEDINFORMATIX TO EPIC CONVERSION from Last 3 Months or Most Recently Relevant to Health Maintenance Insurance [facility]ICARE [facility] Care Teams Experimental Electronics Developer Relationship Specialty Start Date End Date Cisco Liz DO [address] [place] [address] PCP - General FAMILY PRACTICE 04/18/23 Tristan Mendoza MD [address] [facility] [address] [place] [address] Physician INTERVENTIONAL CARDIOLOGY 10/04/24
--- OUTSIDE RECORDS SUMMARY | 2025-05-20 17:35 | XMS_ITS | Encounter Summary ---
Author Organization [facility] Address [address] [place] [address] Care Team Providers Care Skimmer Scoop Operator Name Role Phone LizzCisco hutton Primary Care Provider [phone] Tristan Smith MD Unavailable [phone] Encounter Details Date Type Department Care Team (Latest Contact Info) Description 05/19/2025 Travel Social History Tobacco Use Types Packs/Day Years [...] st Contact Info) Description 05/21/2025 10:30 AM RN MIDWIFE Appointment [facility] [address] [place] [address] Tristan Smith MD [facility], [address] [address] 05/23/2025 10:30 AM RN MIDWIFE Appointment [facility] [address] [place] [address] Tristan Smith MD Daniel [facility], [address] [place] [address] 05/26/2025 10:30 AM RN MIDWIFE Appointment [facility] [place] [address] Tristan Smith MD [address], [address] [address] 05/28/2025 10:30 AM RN MIDWIFE Appointment [facility] [place] [address] Tristan Smith MD [address], [address] [address] 05/30/2025 10:30 AM RN MIDWIFE Appointment [facility] [place] [address] Tristan Smith MD [address], [address] [address] 06/02/2025 10:30 AM RN MIDWIFE Appointment [facility] [place] [address] Tristan Smith MD [address], [address] [address] 06/04/2025 10:30 AM RN MIDWIFE Appointment [facility] [place] [address] Tristan Smith MD [address], [address] [address] 06/06/2025 10:30 AM RN MIDWIFE Appointment [facility] [place] [address] Tristan Smith MD [address], [address] [address] 06/09/2025 10:30 AM RN MIDWIFE Appointment [facility] [address] [place] [address] Tristan Smiht MD [address], [address] [address] 06/11/2025 10:30 AM RN MIDWIFE Appointment [facility] [place] [address] Tristan Smith MD [address], [address] [address] 06/13/2025 10:30 AM RN MIDWIFE Appointment [facility] [place] [address] Tristan Smith MD [address], [address] [address] 06/16/2025 10:30 AM RN MIDWIFE Appointment [facility] [place] [address] Tristan Smith MD [address], [address] [address] 06/18/2025 10:30 AM RN MIDWIFE Appointment [facility] [place] [address] Tristan Smith MD [address], [address] [address] 06/20/2025 10:30 AM RN MIDWIFE Appointment [facility] [place] [address] Tristan Smith MD [address], [address] [address] 06/23/2025 10:30 AM RN MIDWIFE Appointment [facility] [address] [place] [address] Tristan Smith MD [address], [address] [address] 06/25/2025 10:30 AM RN MIDWIFE Appointment [facility] [address] [place] [address] Tristan Smith MD [address], [address] [address] 06/27/2025 10:30 AM RN MIDWIFE Appointment [facility] [place] [address] Tristan Smith MD [address], [address] [address] 06/30/2025 10:30 AM RN MIDWIFE Appointment [facility] [place] [address] Tristan Smith MD [address], [address] [address] 07/02/2025 10:30 AM RN MIDWIFE Appointment [facility] [place] [address] Tristan Smith MD [address], [address] [address] 07/04/2025 10:30 AM RN MIDWIFE Appointment [facility] [place] [address] Tristan Smith MD [address], [address] [address] 07/07/2025 10:30 AM RN MIDWIFE Appointment [facility] [address] [place] [address] Tristan Smith MD [address], [address] [address] 07/09/2025 10:30 AM RN MIDWIFE Appointment [facility] [address] [place] [address] Tristan Smith MD [address], [address] [address] 07/11/2025 10:30 AM RN MIDWIFE Appointment [facility] [place] [address] Tristan Smith MD [address] [facility], [address] [address] 07/14/2025 10:30 AM RN MIDWIFE Appointment [facility] [place] [address] Tristan Smith MD [address], [address] [address] 07/16/2025 10:30 AM RN MIDWIFE Appointment [facility] [place] [address] Tristan Smith MD [address], [address] [address] 07/18/2025 10:30 AM RN MIDWIFE Appointment [facility] [place] [address] Tristan Smith MD [address], [address] [address] 07/21/2025 10:30 AM RN MIDWIFE Appointment [facility] [address] [place] [address] Tristan Smith MD [address] [facility] [address], [address] [address] 07/23/2025 10:30 AM RN MIDWIFE Appointment [facility] [address] [place] [address] Tristan Smith MD [address] [place], [place] [address] ST, [address] [address] 07/25/2025 10:30 AM RN MIDWIFE Appointment [facility] [place] [address] Tristan Smith MD [address] [facility] [address], [address] [address] 07/28/2025 10:30 AM RN MIDWIFE Appointment [facility] [place] [address] Tristan Smith MD [address] [facility] [address] [address] 07/30/2025 10:30 AM RN MIDWIFE Appointment [facility] [place] [address] Tristan Smith MD [address] [facility] [address], [address] [address] 08/01/2025 10:30 AM RN MIDWIFE Appointment [facility] [address] [place] [address] Tristan Smith MD [address], [address] [address] 08/04/2025 10:30 AM RN MIDWIFE Appointment [facility] [address] [place] [address] [place] [address] Tristan Smith MD [address] [facility], [address] [address] 08/26/2025 11:00 AM RN MIDWIFE Office Visit [facility] [address] [place] [address] Tristan Smith MD [address] [address] documented as of this encounter Visit Diagnoses Not on filedocumented in this encounter Care Teams Skimmer Scoop Operator Relationship Specialty Start Date End Date Cisco Liz DO [address] [place] [address] PCP - General FAMILY PRACTICE 04/18/23 Tristan Smith MD [address] [facility], [address] [address] Physician INTERVENTIONAL CARDIOLOGY 10/04/24 documented as of this encounter
== END 2025-05-20 09:50 | disposition home or self-care (01) ==
PROVIDERS: PCP Family Medicine; Visit Provider Family Medicine
DX: M25.571 Pain in right ankle and joints of right foot (principal)
CPT/HCPCS: 73610

== ENCOUNTER 2025-06-09 10:40 | Outpatient (CLI) | payer MEDICARE, OTHER, SELFPAY ==
[2025-06-09 11:00] LABS: Hematocrit 39.6 % (35.0-42.0); Hemoglobin 12.5 g/dL (11.7-13.8); Mean Corpuscular HGB Conc 31.6 g/dL (32-36); Mean Corpuscular Hemoglobin 29.2 pg (27.0-31.0); Mean Corpuscular Volume 92.5 fL (78.0-102.0); Platelet Count Result 261 K/mm3 (150-420); Red Blood Count 4.28 M/mm3 (4.20-5.40); White Blood Count 7.8 K/mm3 (4.8-10.8)
[2025-06-09 11:34] LABS: Alanine Aminotransferase 17 U/L (6-35); Albumin Level 4.5 g/dL (3.5-5.1); Alkaline Phosphatase 78 U/L (38-126); Amylase 119 U/L (30-110); Anion Gap 16 mmol/L (4-12); Aspartate Amino Transferase 26 U/L (14-36); Bilirubin,Total 0.4 mg/dL (0.2-1.3); Blood Urea Nitrogen 59 mg/dL (7-17); Calcium 9.3 mg/dL (8.4-10.2); Carbon Dioxide 12 mmol/L (22-30); Chloride 112 mmol/L (98-107); Estimated Glomerular Filt Rate 9; Glucose 100 mg/dL (65-110); Lipase 256 U/L (23-300); Magnesium 2.3 mg/dL (1.6-2.3); Osmolality Calculated 306 mOsm/kg (285-295); Potassium 4.1 mmol/L (3.4-5.0); Sodium 140 mmol/L (137-145); Total Protein 7.1 g/dL (6.3-8.2)
[2025-06-09 13:12] LABS: Band Neutrophils Percent 0 % (0-6); Eosinophils Absolute Manual 0.23 K/mm3 (0.02-0.50); Eosinophils Percent Manual 3 % (1-6); Lymphocytes Absolute Manual 1.48 K/mm3 (1.1-4.5); Lymphocytes Percent Manual 19 % (18-44); Monocytes Absolute Manual 0.93 K/mm3 (0.1-0.90); Monocytes Percent Manual 12 % (3-9); Neutrophils Absolute Manual 5.14 K/mm3 (1.3-6.7); Neutrophils Percent Manual 66 % (46-73); Total Cells Counted 100
== END 2025-06-09 10:41 | disposition home or self-care (01) ==
PROVIDERS: PCP Nurse Practitioner Family; Visit Provider Nurse Practitioner Family
DX: R19.7 Diarrhea, unspecified (principal)
CPT/HCPCS: 36415; 80053; 82150; 83690; 83735; 85025

== ENCOUNTER 2025-06-09 15:54 | Inpatient (IN) | payer MEDICARE, OTHER, SELFPAY ==
[2025-06-09] VITALS (16 sets, daily range): BP systolic 91–132; BP diastolic 38–72; PULSE 60–76; RESP 11–24; TEMP 36.2; O2SAT 77–100; BMI 21.7
--- NOTE | ~2025-06-09 | US_ITS ---
EXAMINATION: US renal BI DATE: 06/09/2025 22:58 INDICATION: Acute renal insufficiency TECHNIQUE: Multiple ultrasound grayscale images of the kidneys were obtained. COMPARISON: None. FINDINGS: The right kidney measures 9.0 x 4.7 x 3.6 cm. The left kidney measures 9.8 x 5.0 x 4.0 cm. The kidneys demonstrate normal echogenicity. There is no hydronephrosis in either kidney. No stones identified. The bladder is normal. IMPRESSION: 1. Normal kidneys without hydronephrosis. Reviewed, dictated and finalized at location A. [facility]ING [facility]
--- NOTE | ~2025-06-09 | CT_ITS ---
EXAMINATION: CT abdomen pelvis wo con DATE: 06/10/2025 17:07 INDICATION: Bloody stool. TECHNIQUE: Computed tomography (CT) of the abdomen and pelvis was performed without intravenous contrast. Automated exposure control and iterative reconstruction technique were employed. The dose-length product was 236.57 mGy-cm. COMPARISON: None previous available FINDINGS: Lung bases do not show any acute findings. Large hiatus hernia in the lower mediastinum. No focal lesions of liver and spleen. Kidneys show small bilateral nonobstructing calculi. No hydronephrosis. No evidence of small bowel obstruction.: Lobes are diffusely and moderately dilated measuring up to 3.6 cm in diameter. Liquid stool throughout the colon. No focal bowel wall thickening. No free fluid or free air. Severe calcific atherosclerotic changes of distal abdominal aorta and probably significant obstruction of right common iliac artery. Significant atherosclerosis at the origin of superior mesenteric artery and both renal arteries. IMPRESSION: 1. Limited noncontrast examination is not optimal to evaluate neoplasms, vascular structures and solid viscera. 2. Diffusely dilated colon with liquid stool suggestive of colitis and diarrhea. Ischemic versus inflammatory origin. 3. Severe calcific changes of abdominal aorta and iliac arteries particularly right common iliac artery. Significant atherosclerotic changes at the proximal superior mesenteric artery and both renal arteries. Reviewed, dictated and finalized at location T. ATRIC SPEECH THERAPIST IMPRESSION: 1. Limited noncontrast examination is not optimal to evaluate neoplasms, vascul ar structures and solid viscera. 2. Diffusely dilated colon with liquid stool suggestive of colitis and diarrhea . Ischemic versus inflammatory origin. 3. Severe calcific changes of abdominal aorta and iliac arteries particularly r ight common iliac artery. Significant atherosclerotic changes at the proximal s uperior mesenteric artery and both renal arteries.
--- NOTE | 2025-06-09 20:05 | ED.GENADULT ---
HPI - General Adult General Chief complaint: Recheck/Abnormal Lab/Rx Stated complaint: abnormal kidney labs Time Seen by Provider: 06/09/25 19:54 History of Present Illness HPI narrative: 89-year-old female presents emergency department for evaluation for worsening outpatient kidney function. Patient states he does have history of acute kidney injury and back in December she was having some issues with kidney dysfunction and that was due to dehydration secondary to diarrhea. Patient states that she was admitted overnight and symptoms and labs did improve. Patient had been recommended to have outpatient follow-up with GI but has not yet had this follow-up. Patient states he does have intermittent issues with diarrhea but it has been worsening over the past 2 weeks. Patient does admit that she did attempt some [id number] treatment but these did not help. Patient denies any lightheaded dizziness patient denies any falls or injury patient denies any associated nausea or vomiting. Patient denies any associated abdominal pain. Patient's primary complaint is the intermittent diarrhea. Patient states she has been drinking but feels that her urine output has decreased. Related Data Home Medications ?Medication ?Instructions ?Recorded ?Confirmed ?Last Taken ?Type mecobalamin (vitamin B12) 500 mcg 500 mcg PO DAILY 02/07/23 06/09/25 Unknown History chewable tablet cilostazol 50 mg tablet 50 mg PO BID 02/22/24 06/09/25 Unknown History clopidogrel 75 mg tablet 75 mg PO DAILY 05/20/25 06/09/25 Unknown History Allergies Allergy/AdvReac Type Severity Reaction Status Date / Time No Known Allergies Allergy Verified 06/09/25 22:51 Review of Systems Review of Systems: All systems reviewed & are unremarkable except as noted in HPI and below [facility] Past Medical History Medical History PAD (peripheral artery disease) Vitamin D deficiency Nicotine dependence Age-related cataract of both eyes Surgically removed with lens placement Ovarian cyst Surgically removed Raynauds phenomenon Seasonal allergies Hypertension Hypercholesterolemia Surgical History Surgical History History of removal of ovarian cyst History of cataract removal with insertion of prosthetic lens (~2014) Family History Family History Father Hypertension Mother Leukemia Sibling Lung cancer Sibling Lung cancer Social History Social History Social History: She smoked up to 1.5ppd x 70 yrs. Down to <1ppd. Rare alcohol use. No drug use hx Code status - full Surrogate decision maker - daughter Smoking packs per day: 1 Smoking cigarettes per day: 20.0 Years smoked: 65 Smoking pack-years: 65.00 Smoking status: Current every day smoker Tobacco type: cigarettes Alcohol intake: never Drinks per week: 2 Alcohol use details: Occasional Substance use: never Substance use type: does not use Lack of Transportation: No Lack of Food: Never True Current Housing: I Have Housing Concerned About Future Housing: No Difficulty Paying Gas/Electric Bills: No Difficulty Paying for Meds: No Currently Unemployed: No Education: High School Diploma/GED Difficulty w/ Childcare or Family Care: No Living arrangements: alone Occupation/Education: retired Gender identity (if verbalized by the patient): Female Spiritual care concerns: No Exam Narrative: APPEARANCE: Well appearing, no pain, no distress, well-nourished. HEAD: normocephalic, atraumatic. EYES: PERRLA/EOMI, conjunctivae clear. NOSE: Normal no drainage EARS:TMS clear with good light reflex. THROAT: Pharynx clear, no exudate. NECK: Supple. No adenopathy, no masses. RESPIRATORY: Airway patent, respirations nonlabored. Clear to auscultation bilaterally, no rales, rhonchi, wheezing. CARDIOVASCULAR: Regular rate and rhythm without murmurs rubs or gallops. ABDOMINAL: Soft, nontender, nondistended, normal bowel sounds MUSCULOSKELETAL: Moves all extremities. Strength/ROM intact, No edema, No calf tenderness. NEURO: Alert. Cranial nerves II through XII intact. Good gait. Good coordination SKIN: Warm, dry. Normal Color Course Vital Signs Vital signs: Vital Signs Temperature 97.2 F L 06/09/25 16:31 Pulse Rate 76 06/09/25 16:31 Respiratory Rate 16 06/09/25 16:31 Blood Pressure 104/50 L 06/09/25 16:31 Pulse Oximetry 100 06/09/25 16:31 Oxygen Delivery Room Air 06/09/25 16:31 Temperature 97.2 F L 06/09/25 16:31 Pulse Rate 60 06/09/25 22:17 Respiratory Rate 16 06/09/25 22:17 Blood Pressure 114/38 L 06/09/25 22:16 Pulse Oximetry 84 L 06/09/25 22:10 Oxygen Delivery Room Air 06/09/25 16:31 [facility] Narrative Medical decision making narrative: 89-year-old female presents emergency department for evaluation for worsened outpatient kidney function. Patient does report diarrhea that is worsened over the last few days. Patient denies any associated nausea vomiting or abdominal pain. Patient is currently afebrile with no leukocytosis hemoglobin of 12.0. Patient does have kidney function has worsened compared to her baseline. Patient was treated with a L of lactated Ringer's and patient will be ordered continue IV fluids upon admission. Renal ultrasound was ordered. Baseline urine creatinine and urine sodium were ordered. Patient and family are updated on the results of the workup plan for admission. Case was discussed with hospitalist patient was accepted for admission. Suspect prerenal/dehydration as the underlying etiology for her acute kidney injury. Differential Diagnosis Differential Diagnosis: Dehydration, orthostatic hypotension, C diff, diarrhea, kidney failure Lab Data [facility] Lab Attestation statement: I personally reviewed the patient's lab results. 06/09/25 20:14 06/09/25 20:14 Labs: Lab Results 06/09/25 Range/Units 20:14 WBC 6.5 (4.5-10.0) K/mm3 RBC 4.03 L (4.2-5.4) M/mm3 Hgb 12.0 (12.0-15.0) g/dL Hct 36.2 L (37.0-47.0) % MCV 89.8 (80-100) fl MCH 29.8 (26-34) pg MCHC 33.1 (32-36) g/dl RDW 15.1 H (11.5-14.5) % Plt Count 219 (150-375) k/mm3 MPV 9.7 (7.4-10.4) fl Immature Gran % (Auto) 0.5 (0-0.5) % Neut % (Auto) 51.8 (45.5-73.1) % Lymph % (Auto) 29.9 (18.3-44.2) % [place] % (Auto) 14.9 H (2.6-8.5) % Eos % (Auto) 1.8 (0-4.4) % Baso % (Auto) 1.1 (0.2-1.2) % Lymph # (Auto) 1.95 (0.9-3.2) K/mm3 [place] # (Auto) 1.0 H (0.1-0.6) K/mm3 Eos # (Auto) 0.1 (0-0.3) K/mm3 Baso # (Auto) 0.1 (0.0-0.1) K/mm3 Abs Immat Gran (auto) 0.03 (0.00-0.031) K/mm3 Absolute Neuts (auto) 3.4 (1.3-6.7) K/mm3 Absolute Nucleated RBC 0.000 (0.0-0.012) K/mm3 Nucleated RBC % 0.0 (0.0-0.2) % Sodium 134 L (137-145) mmol/L Potassium 3.6 (3.4-5.0) mmol/L Chloride 108 H (98-107) mmol/L Carbon Dioxide 15 L (22-30) mmol/L Anion Gap 11 (4-12) mmol/L BUN 64 H (7-17) mg/dL Creatinine 3.79 H (0.7-1.0) mg/dL Estim Creat Clear Calc 8 ml/min Estimated GFR 11 L (59 - ) Glucose 120 H (65-110) mg/dL Calcium 8.9 (8.4-10.2) mg/dL Total Bilirubin 0.3 (0.2-1.3) mg/dL AST 27 (14-36) U/L ALT 17 (6-35) U/L Alkaline Phosphatase 76 (38-126) U/L Total Protein 7.2 (6.3-8.2) g/dL Albumin 4.1 (3.5-5.1) g/dL Discharge Plan Discharge Clinical Impression: Acute kidney injury superimposed on chronic kidney disease, Diarrhea Patient Disposition: Still a Patient Condition: Serious
[2025-06-09 20:20] LABS: Hematocrit 36.2 % (37.0-47.0); Hemoglobin 12.0 g/dL (12.0-15.0); Immature Granulocyte Percent A 0.5 % (0-0.5); Lymphocytes Absolute Auto 1.95 K/mm3 (0.9-3.2); Mean Corpuscular HGB Conc 33.1 g/dl (32-36); Mean Corpuscular Hemoglobin 29.8 pg (26-34); Mean Corpuscular Volume 89.8 fl (80-100); Nucleated Red Blood Cells Absolute Auto 0.000 K/mm3 (0.0-0.012); Nucleated Red Blood Cells Perc 0.0 % (0.0-0.2); Platelet Count Result 219 k/mm3 (150-375); Red Blood Count 4.03 M/mm3 (4.2-5.4); White Blood Count 6.5 K/mm3 (4.5-10.0)
[2025-06-09 20:35] LABS: Alanine Aminotransferase 17 U/L (6-35); Albumin Level 4.1 g/dL (3.5-5.1); Alkaline Phosphatase 76 U/L (38-126); Anion Gap 11 mmol/L (4-12); Aspartate Amino Transferase 27 U/L (14-36); Bilirubin,Total 0.3 mg/dL (0.2-1.3); Blood Urea Nitrogen 64 mg/dL (7-17); Calcium 8.9 mg/dL (8.4-10.2); Carbon Dioxide 15 mmol/L (22-30); Chloride 108 mmol/L (98-107); Estimated CRCL calculation 8 ml/min; Estimated Glomerular Filt Rate 11; Glucose 120 mg/dL (65-110); Potassium 3.6 mmol/L (3.4-5.0); Sodium 134 mmol/L (137-145); Total Protein 7.2 g/dL (6.3-8.2)
--- OUTSIDE RECORDS SUMMARY | 2025-06-09 20:49 | XMS_ITS | Encounter Summary ---
Author Organization [facility] Address [address] [place] [address] Care Team Providers Care Wool Shearing Supervisor Name Role Phone Cisco Liz Primary Care Provider [phone] Tristan Smith MD Unavailable [phone] Encounter Details Date Type Department Care Team ([facility] Contact Info) Description 03/31/2025 Prep for Procedure [facility] [address] [place] [address] Tristan Smith MD [address] [facility] [address] [place] [address] Social History Tobacco Use Types [...] AM CDT Halina Gonzales RN Active * [place] Suicide Severity Rating Scale (Screener/Recent Self-Report) Question [...] Care Team (Late st Contact Info) Description 06/11/2025 10:30 AM BRICK LOADER Appointment [facility] [address] [place] [address] Tristan Smith MD [address], [address] [address] 06/13/2025 10:30 AM BRICK LOADER Appointment [facility] [place] [address] Tristan Smith MD [address], [address] [address] 06/16/2025 10:30 AM BRICK LOADER Appointment [facility] [place] [address] Tristan Smith MD [address], [address] [address] 06/18/2025 10:30 AM BRICK LOADER Appointment [facility] [place] [address] Tristan Smith MD [address], [address] [address] 06/20/2025 10:30 AM BRICK LOADER Appointment [facility] [place] [address] Tristan Smith MD [address], [address] [address] 06/23/2025 10:30 AM BRICK LOADER Appointment [facility] [address] [place] [address] Tristan Simth MD [address], [address] [address] 06/25/2025 10:30 AM BRICK LOADER Appointment [facility] [address] [place] [address] Tristan Smith MD [address], [address] [address] 06/27/2025 10:30 AM BRICK LOADER Appointment [facility] [place] [address] Tristan Smith MD [address], [address] [address] 06/30/2025 10:30 AM BRICK LOADER Appointment [facility] [place] [address] Tristan Smith MD [address], [address] [address] 07/02/2025 10:30 AM BRICK LOADER Appointment [facility] [place] [address] Tristan Smith MD [address], [address] [address] 07/04/2025 10:30 AM BRICK LOADER Appointment [facility] [place] [address] Tristan Smith MD [address], [address] [address] 07/07/2025 10:30 AM BRICK LOADER Appointment [facility] [address] [place] [address] Tristan Smith MD [address], [address] [address] 07/09/2025 10:30 AM BRICK LOADER Appointment [facility] [address] [place] [address] Tristan Smith MD [address], [address] [address] 07/11/2025 10:30 AM BRICK LOADER Appointment [facility] [place] [address] Tristan Smith MD [address] [facility] [address], [address] [address] 07/14/2025 10:30 AM BRICK LOADER Appointment [facility] [place] [address] Tristan Smith MD [address], [address] [address] 07/16/2025 10:30 AM BRICK LOADER Appointment [facility] [place] [address] Tristan Smith MD [address], [address] [address] 07/18/2025 10:30 AM BRICK LOADER Appointment [facility] [place] [address] Tristan Smith MD [address], [address] [address] 07/21/2025 10:30 AM BRICK LOADER Appointment [facility] [address] [place] [address] Tristan Smith MD [address], [address] [address] 07/23/2025 10:30 AM BRICK LOADER Appointment [facility] [address] [place] [address] Tristan Smith MD [address], [address] [address] 07/25/2025 10:30 AM BRICK LOADER Appointment [facility] [place] [address] Tristan Smith MD [address], [address] [address] 07/28/2025 10:30 AM BRICK LOADER Appointment [facility] [place] [address] Tristan Smith MD [address], [address] [address] 07/30/2025 10:30 AM BRICK LOADER Appointment [facility] [place] [address] Tristan Smith MD [address], [address] [address] 08/01/2025 10:30 AM BRICK LOADER Appointment [facility] [place] [address] Tristan Smith MD [address] [facility], [address] [address] 08/04/2025 10:30 AM BRICK LOADER Appointment [facility] [address] [place] [address] [place] [address] Tristan Smith MD [address] [facility], [address] [address] 08/26/2025 11:00 AM BRICK LOADER Office Visit [facility] [address] [place] [address] [place] [id number] Tristan Smith MD [address] [address] documented as of this encounter Visit Diagnoses Not on filedocumented in this encounter Care Teams Wool Shearing Supervisor Relationship Specialty Start Date End Date Cisco Liz DO [address] [place] [address] PCP - General FAMILY PRACTICE 04/18/23 Tristan Smith MD [address] [facility], [address] [address] Physician INTERVENTIONAL CARDIOLOGY 10/04/24 documented as of this encounter
--- OUTSIDE RECORDS SUMMARY | 2025-06-09 20:49 | XMS_ITS | Clinical Summary ---
Author Organization [facility] Jimbo garcia Que Address [address] [place] [address] Care Team Providers Care Watch Guard Gate Name Role Phone Cisco Liz DO Primary Care Provider [phone] Allergies No known active allergies Medications atenoloL [...] st Contact Info) Description 07/07/2025 11:00 AM INSTRUCTOR ADJUNCT PHARMACY TECHNICIAN Office Visit [facility] Oncology and Hematology - [place] [address] [facility] [address] [place] [address] Kamari Hansen MD [address] [facility] [address] [place] [address] Health Maintenance Due Date Last Done Comments DTAP/TDAP/TD VACCINES (1 - Tdap) 1954 PNEUMOCOCCAL VACCINE 50+ YEARS (1 of 1 - PCV) 12/05/18 88 ZOSTER VACCINE (1 of 2) 12/06/1987 OSTEOPOROSIS SCREENING 2002 RSV VACCINE (60+ or ) (1 - 1-dose 75+ series) 2012 INFLUENZA VACCINE (#1) 2025 Insurance [facility] [place] [address] MEDICARE PART A AND B Care Teams Watch Guard Gate Relationship Specialty Start Date End Date Cisco Liz DO [address] [place] [address] PCP - General Family Practice 11/22/22
--- OUTSIDE RECORDS SUMMARY | 2025-06-09 20:49 | XMS_ITS | Clinical Summary ---
Author Organization [facility] Address [address] [place] [address] Care Team Providers Care Yard Crane Operator Name Role Phone Cisco Liz DO Primary Care Provider [phone] Tristan Mendoza MD Unavailable [phone] Allergies No known active allergies Medications amLODIPine (NORVASC) 5 MG tablet Take 1 tablet (5 mg total) by mouth daily. 3 Active atenolol (TENORMIN) 50 MG tablet Take 1 tablet (50 mg total) by mouth daily. 3 Active atorvastatin (LIPITOR) 40 MG tablet Take 1 tablet (40 mg total) by mouth daily. 3 Active Ferrous Sulfate (IRON) 325 (65 Fe) MG tablet Take 325 mg by mouth daily with breakfast. 3 Active lisinopril (PRINIVIL) 20 MG tablet Take 1 tablet (20 mg total) by mouth daily. 3 Active calcium citrate-vitamin D 315 mg-6.25 mcg 315-6.25 MG-MCG Tab tablet Take 1 tablet by mouth daily. Active ibuprofen (MOTRIN) 800 MG tablet Take 1 tablet (800 mg total) by mouth every 6 (six) hours as needed for Pain or Fever. 5 Active pantoprazole EC (PROTONIX) 40 MG tablet Take 1 tablet (40 mg total) by mouth daily. 5 Active vitamin B-12 (CYANOCOBALAMIN ) 500 MCG tablet Take 1 tablet (500 mcg total) by mouth daily. Active magnesium oxide (MAG-OX) 250 MG tablet Take 1 tablet (250 mg total) by mouth daily. Active clopidogrel (PLAVIX) 75 MG tablet Take 1 tablet (75 mg total) by mouth daily. 90 tablet 3 5 04/04/20 26 Active NICOTINE TRANSDERMAL SYSTEM TD Place 1 Application onto the skin once a week. Active cilostazol (PLETAL) 100 MG tablet TAKE 1/2 TABLET BY MOUTH TWICE A DAY 60 tablet 5 5 Active traMADol (ULTRAM) 50 MG tabletIndicatio ns:Acute Pain < 7 Day Supply,Right leg pain Take 1 tablet (50 mg total) by mouth every 6 (six) hours as needed for Pain. Indications: Acute Pain < 7 Day Supply, Right leg pain 14 tablet 5 05/23/20 25 Active Problems Problem Noted Date Diagnosed Date Coronary artery disease invo lving wales coronary artery of wales heart without angina pectoris 12/17/2024 Primary hypertension 05/10/2023 PAD (peripheral artery disease) 05/05/2023 Hyperlipidemia, unspecified hyperlipidemia type 05/05/2023 Other secondary hypertension 05/05/2023 Encounters Date Type Department Care Team Description 06/06/2025 10:27 AM SENIOR JAVA SOFTWARE DEVELOPER - 06/06/2025 11:59 PM SENIOR JAVA SOFTWARE DEVELOPER Hospital [facility] [place] [address] Tristan Mendoza MD Discharge Disposition: Home or Self Care (Routine Discharge) 06/06/2025 Travel 06/04/2025 10:30 AM SENIOR JAVA SOFTWARE DEVELOPER - 06/04/2025 11:59 PM SENIOR JAVA SOFTWARE DEVELOPER Hospital En[facility] [place] [address] Tristan Mendoza MD Discharge Disposition: Home or Self Care (Routine Discharge) 06/04/2025 Travel 05/26/2025 10:24 AM SENIOR JAVA SOFTWARE DEVELOPER - 05/26/2025 11:59 PM SENIOR JAVA SOFTWARE DEVELOPER Hospital Encounter [facility] [place] [address] Tristan Mendoza MD Discharge Disposition: Home or Self Care (Routine Discharge) 05/26/2025 Travel 05/23/2025 10:28 AM SENIOR JAVA SOFTWARE DEVELOPER - 05/23/2025 11:59 PM SENIOR JAVA SOFTWARE DEVELOPER Hospital Encounter [facility] [address] [address] Tristan Mendoza MD Discharge Disposition: Home or Self Care (Routine Discharge) 05/23/2025 Travel 05/21/2025 10:25 AM SENIOR JAVA SOFTWARE DEVELOPER - 05/21/2025 11:59 PM SENIOR JAVA SOFTWARE DEVELOPER Hospital Encounter [facility] [address] [place] [address] [place] [address] Tristan Mendoza MD Discharge Disposition: Home or Self Care (Routine Discharge) 05/21/2025 Travel 05/19/2025 10:30 AM SENIOR JAVA SOFTWARE DEVELOPER - 05/19/2025 11:59 PM SENIOR JAVA SOFTWARE DEVELOPER Hospital Encounter [facility] [address] [place] [address] [place] [address] Tristan Mendoza MD Discharge Disposition: Home or Self Care (Routine Discharge) 05/19/2025 Travel 05/16/2025 10:25 AM SENIOR JAVA SOFTWARE DEVELOPER - 05/16/2025 11:59 PM SENIOR JAVA SOFTWARE DEVELOPER Hospital Encounter [facility] [address] [place] [address] [place] [address] Tristan Mendoza MD Discharge Disposition: Home or Self Care (Routine Discharge) 05/16/2025 Orders Only [facility] [address] [place] [address] Tristan Mendoza MD 05/16/2025 Travel 05/14/2025 10:26 AM SENIOR JAVA SOFTWARE DEVELOPER - 05/14/2025 11:59 PM SENIOR JAVA SOFTWARE DEVELOPER Hospital Encounter [facility] [place] [address] Tristan Mendoza MD Discharge Disposition: Home or Self Care (Routine Discharge) 05/14/2025 [facility] [address] [place] [address] Tristan Mendoza MD Problem 05/14/2025 Travel 05/12/2025 10:55 AM SENIOR JAVA SOFTWARE DEVELOPER - 05/12/2025 11:59 PM SENIOR JAVA SOFTWARE DEVELOPER Hospital Encounter [facility] [address] [place], [place] [address] [address] Tristan Mendoza MD Discharge Disposition: Home or Self Care (Routine Discharge) 05/12/2025 Travel 05/07/2025 10:40 AM SENIOR JAVA SOFTWARE DEVELOPER - 05/07/2025 11:59 PM SENIOR JAVA SOFTWARE DEVELOPER Hospital Encounter [facility] [address] [place] [address] Tristan Mendoza MD Discharge Disposition: Home or Self Care (Routine Discharge) 05/07/2025 Travel 04/21/2025 Telephone [facility] [address] [place] [address] Tristan Mendoza MD Cardiac Rehab (SET) 04/21/2025 Telephone [facility] ie [address] [place] [address] Tristan Mendoza MD Appointment Request 04/15/2025 3:30 PM CDT Office Visit [facility] [place] [address] Tristan Mendoza MD Peripheral Vascular Disease; Follow Up; Hyperlipidemia 04/15/2025 2:25 PM CDT - 04/15/2025 11:59 PM CDT Hospital Encounter [facility] [address] [place] [place] [address] Tristan Mendoza MD Discharge Disposition: Home or Self Care (Routine Discharge) 04/15/2025 Travel 04/14/2025 Telephone [email or web address] [address] [place] [address] Tristan Mendoza MD Appointment Request 04/04/2025 Telephone [email or web address] [address] [place] [address] Tristan Mendoza MD Refill Request 04/03/2025 7:28 AM CDT - 04/03/2025 4:18 PM CDT Hospital Encounter [facility] [address] [place] [address] Tristan eMndoza MD Discharge Disposition: Home or Self Care (Routine Discharge) 04/03/2025 Travel 04/01/2025 8:55 AM CDT - 04/01/2025 11:59 PM CDT Hospital Encounter [address] [place] [address] Tristan Mendoza MD Discharge Disposition: Home or Self Care (Routine Discharge) 04/01/2025 Travel 03/31/2025 Prep for Procedure [facility] [address] [place] [address] Tristan Mendoza MD 03/19/2025 Telephone [email or web address] [address] [place] [address] Tristan Mendoza MD Schedule Procedure 03/18/2025 1:00 PM CDT Office Visit [facility] [place] [address] Tristan Mendoza MD Follow Up (Test results) 03/18/2025 Travel 03/17/2025 Telephone [email or web address] [address] [place] [address] Tristan Mendoza MD Appointment Reminder from Last [...] st Contact Info) Description 06/11/2025 10:30 AM SENIOR JAVA SOFTWARE DEVELOPER Appointment [facility] [place] [address] Tristan Mendoza MD [address], [address] [address] 06/13/2025 10:30 AM SENIOR JAVA SOFTWARE DEVELOPER Appointment [facility] [place] [address] Tristan Mendoza MD [address], [address] [address] 06/16/2025 10:30 AM SENIOR JAVA SOFTWARE DEVELOPER Appointment [facility] [place] [address] Tristan Mendoza MD [address], [address] [address] 06/18/2025 10:30 AM SENIOR JAVA SOFTWARE DEVELOPER Appointment [facility] [place] [address] Tristan Mendoza MD [address], [address] [address] 06/20/2025 10:30 AM SENIOR JAVA SOFTWARE DEVELOPER Appointment [facility] [address] [place] [address] Tristan Mendoza MD [address], [address] [address] 06/23/2025 10:30 AM SENIOR JAVA SOFTWARE DEVELOPER Appointment [facility] [place] [address] Tristan Mendoza MD [address], [address] [address] 06/25/2025 10:30 AM SENIOR JAVA SOFTWARE DEVELOPER Appointment [facility] [place] [address] Tristan Mendoza MD [address], [address] [address] 06/27/2025 10:30 AM SENIOR JAVA SOFTWARE DEVELOPER Appointment [facility] [place] [address] Tristan Mendoza MD [address], [address] [address] 06/30/2025 10:30 AM SENIOR JAVA SOFTWARE DEVELOPER Appointment [facility] [place] [address] Tristan Mendoza MD [address], [address] [address] 07/02/2025 10:30 AM SENIOR JAVA SOFTWARE DEVELOPER Appointment [facility] [place] [address] Tristan Mendoza MD [address], [address] [address] 07/04/2025 10:30 AM SENIOR JAVA SOFTWARE DEVELOPER Appointment [facility] [address] [place] [address] Tristan Mendoza MD [address], [address] [address] 07/07/2025 10:30 AM SENIOR JAVA SOFTWARE DEVELOPER Appointment [facility] [address] [place] [address] Tristan Mendoza MD [address], [address] [address] 07/09/2025 10:30 AM SENIOR JAVA SOFTWARE DEVELOPER Appointment [facility] [place] [address] Tristan Mendoza MD [address], [address] [address] 07/11/2025 10:30 AM SENIOR JAVA SOFTWARE DEVELOPER Appointment [facility] [place] [address] Tristan Mendoza MD [address], [address] [address] 07/14/2025 10:30 AM SENIOR JAVA SOFTWARE DEVELOPER Appointment [facility] [place] [address] Tristan Mendoza MD [address], [address] [address] 07/16/2025 10:30 AM SENIOR JAVA SOFTWARE DEVELOPER Appointment [facility] [place] [address] Tristan Mendoza MD [address], [address] [address] 07/18/2025 10:30 AM SENIOR JAVA SOFTWARE DEVELOPER Appointment [facility] [address] [place] [address] Tristan Mendoza MD [address], [address] [address] 07/21/2025 10:30 AM SENIOR JAVA SOFTWARE DEVELOPER Appointment [facility] [address] [place] [address] Tristan Mendoza MD [address], [address] [address] 07/23/2025 10:30 AM SENIOR JAVA SOFTWARE DEVELOPER Appointment [facility] [address] [place] [address] Tristan Mendoza MD [address], [address] [address] 07/25/2025 10:30 AM SENIOR JAVA SOFTWARE DEVELOPER Appointment [facility] [address] [place] [address] Tristan Mendoza MD [address], [address] [address] 07/28/2025 10:30 AM SENIOR JAVA SOFTWARE DEVELOPER Appointment [facility] [address] [place] [address] Tristan Mendoza MD [address], [address] [address] 07/30/2025 10:30 AM SENIOR JAVA SOFTWARE DEVELOPER Appointment [facility] [address] [place] [address] Tristan Mendoza MD [address], [address] [address] 08/01/2025 10:30 AM SENIOR JAVA SOFTWARE DEVELOPER [facility]ointment [facility] [address] [place], [place] [address] [address] Tristan Mendoza MD [address] , [address] [address] 08/04/2025 10:30 AM SENIOR JAVA SOFTWARE DEVELOPER [facility]ointment [facility] [address] [place], [place] [address] [address] Tristan Mendoza MD [address] , [address] [address] 08/26/2025 11:00 AM SENIOR JAVA SOFTWARE DEVELOPER Office Visit [facility] [place] [address] Tristan Mendoza MD [facility] [address] , [address] [address] Health Maintenance Due Date Last Done Comments ASCVD Statin 1935 Zoster Vaccines (1 of 2) 12/06/1987 Annual Medicare Wellness Visit 2002 ASCVD LDL 11/19/2005 11/19/2004 RSV Immunization or 60+ Years (1 - 1-dose 75+ series) 2012 DTaP, Tdap and Td Vaccines (2 - Td or Tdap) 01/22/2024 01/21/2014 COVID-19 Vaccine (3 - season) 2025 08/28/2020, 07/31/2020 Influenza Adult (#1) 2025 05/13/2024, 06/28/2021, 05/01/2021, Additional history exists Pneumococcal Vaccine: 50+ Years Completed 11/03/2020, 05/03/2018 Hepatitis A Vaccines Aged Out No long er eligible based on patient's age to complete this topic Meningococcal B Vaccine Aged Out No l onger eligible based on patient's age to complete this topic Meningococcal Vaccine Aged Out No venr ariana eligible based on patient's age to [...] (peripheral artery disease) Coronary artery disease involving wales coronary artery of wales heart without angina pectoris HC CBC W/O DIFF Routine 04/01/2025 9:11 AM CDT PAD (peripheral artery disease) Coronary artery disease involving wales coronary artery of wales heart without angina pectoris LIPID PANEL Routine 11/19/2004 11:02 AM CDT from Last 3 Months or Most Recently Relevant to Health Maintenance Results * USV MARIELLE DUPLEX LOW EXT RT (04/15/2025 3:06 PM CDT) Anatomical Region Laterality Modality Extremity Ultrasound 04/15/2025 2:3 7 PM CDT Narrative 04/18/2025 1:55 PM CDT Outreach Venous Duplex Scan Lower Extremity Vascular Report Pat.Name: Sergey Carrero Pat.ID: [id number] .Date: 04/15/2025 [facility] 2:37[facility]00 PM Study Type:OUTREACH VENOUS DUPLEX SCAN LOWER EXTREMITY Height: 62 in Age: 6 1935,89Y Sex: F Sonogrphr: Hw Pat. Stat.:Outpatient CPT - 4: 35562 Venous Duplex LE/UE Reason for Study:Pain and swelling of right knee, Localized edema, R/O DVT Procedures: Study performed at [facility], [place], [place] and interpreted by [facility]. LE Venous - Right ++++++++++++++++++++++++++++++++++++ [...] Scan Lower Extremity Vascular Report Pat.Name: Sergey Carrero Pat.ID: [id number] .Date: 04/15/2025 Refer.MD: Vincent, [facility] Exam Time: 2:37:00 PM Study Type:OUTREACH VENOUS DUPLEX SCAN LOWER EXTREMITY Height: 62 in Age: 6 1935,89Y Sex: F Sonogrphr: Hw Pat. Stat.:Outpatient CPT - 4: 09313 Venous Duplex LE/UE Reason for Study:Pain and swelling of right knee, Localized edema, R/O DVT Procedures: Study performed at [place], [place] and interpreted by [facility]. LE Venous - Right ++++++++++++++++++++++++++++++++++++ [...] Signature> 04/18/2025 01:55 PM Tristan Mendoza M.D. Tristan Mendoza MD [facility] Final Result * (ABNORMAL) POCT ACTIVATED CLOTTING TIME - ISTAT DOCKED DEVICE (04/03/2025 12:49 PM CDT) Only the most recent of5 resultswithin the time period is included. ACTIVATED CLOTTING TIME (ACT HMT OR LMT) 199(H) 74 - 137 SEC 04/03/2025 12:51 PM CDT [facility] 04/03/2025 12:4 9 PM CDT us Tristan Mendoza MD POCT ORDERABLES - DEVICE Fin al Result [facility] [address] [place] [address], [place] [phone] [id number] * REVASCULARIZATION, ENDOVASCULAR, OPEN OR PERCT (04/03/2025 [...] sedation using Versed and fentanyl. I supervised andmarisela Vera who assisted in monitoring patient's level [...] was free of any significantdisease. A 6 Czech 45 cm sheath was placed over the [...] Region Laterality Modality Chest, Abdomen, Renal, Extremity Cabinet Professional 04/03/2025 9:30 AM CDT us Tristan Mendoza MD ELECTRONIC DESIGN ENGINEER Final Result * ECG 12 lead (04/03/2025 8:19 AM CDT) 04/03/2025 8:19 AM CDT Narrative [facility] - 04/03/2025 7:08 PM CDT [place] [address] [place] [address] Test Date: 2025-04-03 Pat Name: SERGEY [facility] Department: 1 Room: [address] Gender: Female Marketing Pr Intern: As : 1935 Requested By: TRISTAN MENDOZA Order Number: [id number] Reading : Tristan Mendoza Measurements Intervals [place] Rate: 57 P: 59 [place]: 169 QRS: 58 QRSD: 75 T: 106 QT: 413 QTc: 402 Interpretive Statements SINUS BRADYCARDIA LOW QRS VOLTAGE IN PRECORDIAL LEADS [QRS DEFLECTION < 1.0 mV IN CHEST LEADS] NONSPECIFIC T-WAVE ABNORMALITY Procedure Note Tristan Mendoza MD - 04/03/2025 [place] [address] [place] [address] Test Date: 2025-04-03 Pat Name: SERGEY [facility] Department: 1 Room: [address] Gender: Female Marketing Pr Intern: As : 1935 Requested By: TRISTAN MENDOZA Order Number: [id number] Reading MD: Tristan Mendoza Measurements Intervals [place] Rate: 57 P: 59 [place]: 169 QRS: 58 QRSD: 75 T: 106 QT: 413 QTc: 402 Interpretive Statements SINUS BRADYCARDIA LOW QRS VOLTAGE IN PRECORDIAL LEADS [QRS DEFLECTION < 1.0 mV IN CHESTLEADS] NONSPECIFIC T-WAVE ABNORMALITY Tristan Mendoza MD ECG ORDERABLES Final Result [facility] * (ABNORMAL) BASIC METABOLIC PANEL (04/01/2025 9:11 AM CDT) SODIUM S/P/B 141 136 - 145 MMOL/L 04/01/2025 9:26 AM CDT [facility] POTASSIUM S/P/B 4.2 3.5 - 5.1 MMOL/L 04/01/2025 9:26 AM CDT [facility] CHLORIDE S/P/B 106 98 - 107 MMOL/L 04/01/2025 9:26 AM CDT [facility] CO2 25.8 21.0 - 32.0 MMOL/L 04/01/2025 9:26 AM CDT [facility] GLUCOSE 97 70 - 99 MG/DL 04/01/2025 9:26 AM CDT [facility] Comment: FASTING GLUCOSE 100 TO 125 MG/DL IS CONSISTENT WITH IMPAIRED FASTING GLUCOSE. FASTING GLUCOSE >125 MG/DL IS CONSISTENT WITH DIABETES. RANDOM GLUCOSE >200 MG/DL WITH HYPERGLYCEMIC SYMPTOMS IS CONSISTENT WITH DIABETES. PER ADA GUIDELINES BUN 14 6 - 24 MG/DL 04/01/2025 9:26 AM CDT [facility] CREATININE S/P/B 1.19(H) 0.55 - 1.02 MG/DL 04/01/2025 9:26 AM CDT [facility] CALCIUM S/P/B 9.4 8.4 - 10.5 MG/DL 04/01/2025 9:26 AM CDT [facility] ANION GAP 9.2 5.0 - 15.0 MMOL/L 04/01/2025 9:26 AM T [facility] OSMOLALITY (CALC) 292 MOSM/KG 025 9:26 AM T [facility] Comment:REFERENCE RANGE NOT ESTABLISHED GFR ESTIMATE 44(L) >89 ML/MIN/1. 73 M2 04/01/2025 9:26 AM CDT [facility] GFR NOTES GFR REFERENCE S: 04/01/2025 9:26 AM CDT [facility] Comment: THE ESTIMATED GFR IS CALCULATED [...] us Tristan Mendoza MD LABORATORY Final Result [facility] [address] [place] [place] [address], [place] [phone] * (ABNORMAL) CBC, AUTO, NO DIFF (04/01/2025 9:11 AM CDT) WBC 8.36 4.00 - 10.80 x10'3/uL 04/01/2025 9:18 AM CDT [facility] RBC 4.41 4.10 - 5.40 x10'6/uL 04/01/2025 9:18 AM CDT [facility] HGB 13.2 12.0 - 16.0 G/DL 04/01/2025 9:18 AM CDT [facility] HCT 40.9 36.0 - 47.0 % 04/01/2025 9:18 AM CDT [facility] MCV 92.7 78.0 - 100.0 FL 04/01/2025 9:18 AM CDT [facility] MCH 29.9 27.0 - 31.0 PG 04/01/2025 9:18 AM CDT [facility] MCHC 32.3(L) 33.0 - 36.0 G/DL 04/01/2025 9:18 AM CDT [facility] RDW 13.6 11.5 - 14.5 % 04/01/2025 9:18 AM CDT [facility] PLT 231 150 - 350 x10'3/uL 04/01/2025 9:18 AM CDT [facility] MPV 10.5(H) 7.4 - 10.4 FL 04/01/2025 9:18 AM CDT [facility] 04/01/2025 9:11 AM CDT us Tristan Mendoza MD LABORATORY Final Result [facility] [address] [place] [address], * LIPID PANEL (11/19/2004 11:02 AM CDT) [...] Most Recently Relevant [place] [address] MEDICARE [facility] Care Teams Yard Crane Operator Relationship Specialty Start Date End Date Cisco Liz DO [address] [place] [address] PCP - General FAMILY PRACTICE 04/18/23 Tristan Mendoza MD [address] [facility] [address] [place] [address] Physician INTERVENTIONAL CARDIOLOGY 10/04/24
[2025-06-09] MEDS: LACTATED RINGERS 1,000 ML 999 ML IV CONT (21:08)
--- NOTE | 2025-06-09 22:26 | WPCEDHO ---
ED Hand Off Checklist All vitals saved:yes IV Site documented:yes All med administrations documented:yes Triage Note Triage Note Pt to ed ambulatory co abnormal 06/09/25 20:18 kidney labs, pt was sent here by her pcp. Pt denies any pain and discomfort. Allergies No Known Allergies Allergy (Verified 06/09/25 10:11) Family History (Last Reviewed 06/09/25 @ 10:11 by Kristine Mahmood NP) Father Hypertension Mother Leukemia Sibling Lung cancer Sibling Lung cancer Administered/Completed Medications Discontinued Medications Lactated Ringer's (Lr - Lactated Ringers Iv) 1,000 mls @ 999 mls/hr IV CONT .Q1H1M STA Stop: 06/09/25 22:00 Last Admin: 06/09/25 21:08 Dose: 999 mls/hr Documented By: FOSTER Interventions/Assessments General Assessment Start: 06/09/25 15:55 Freq: Status: Active Protocol: Document 06/09/25 20:18 LLG (Rec: 06/09/25 20:20 LLG [id number]) GA Neurological Assessment Neurological Yes Assessment WNL GA HEENT Assessment HEENT Assessment WNL Yes GA Cardiovascular Assessment Cardiovascular Yes Assessment WNL GA Gastrointestinal Assessment Gastrointestinal No Assessment WNL Gastrointestinal Diarrhea Symptoms Pattern Diarrhea GA Genitourinary Assessment Genitourinary WNL Parameters GA Integumentary Assessment Integumentary Yes Assessment WNL IV / Saline Lock, Insert Start: 06/09/25 15:55 Freq: Status: Active Protocol: Document 06/09/25 20:18 LLG (Rec: 06/09/25 20:20 LLG [id number]) IV Assessment Peripheral Access Right Antecubital IV Catheter Access Initiated IV Insertion Date 06/09/25 IV Insertion Time 20:20 Catheter Gauge 18 IV Site Assessment WNL IV Care and WNL Maintenance Last Vital Signs Temperature 97.2 F L 06/09/25 16:31 Pulse Rate 60 06/09/25 22:17 Respiratory Rate 16 06/09/25 22:17 Pulse Oximetry 84 L 06/09/25 22:10 Blood Pressure 114/38 L 06/09/25 22:16 Blood Pressure Mean 61 06/09/25 22:16 Blood Pressure Position Sitting 06/09/25 16:31 Oxygen Delivery Room Air 06/09/25 16:31 Weight 54 kg 06/09/25 16:31 Last Result - Abnormals Only RBC 4.03 M/mm3 (4.2-5.4) L 06/09/25 20:14 Hct 36.2 % (37.0-47.0) L 06/09/25 20:14 RDW 15.1 % (11.5-14.5) H 06/09/25 20:14 [place] % (Auto) 14.9 % (2.6-8.5) H 06/09/25 20:14 [place] # (Auto) 1.0 K/mm3 (0.1-0.6) H 06/09/25 20:14 Sodium 134 mmol/L (137-145) L 06/09/25 20:14 Chloride 108 mmol/L (98-107) H 06/09/25 20:14 Carbon Dioxide 15 mmol/L (22-30) L 06/09/25 20:14 BUN 64 mg/dL (7-17) H 06/09/25 20:14 Creatinine 3.79 mg/dL (0.7-1.0) H 06/09/25 20:14 Estimated GFR 11 (59-) L 06/09/25 20:14 Glucose 120 mg/dL (65-110) H 06/09/25 20:14 Most Recent Suicide Severity Rating Suicide Severity Rating NO RISK INDICATED 06/09/25 20:18
--- NOTE | 2025-06-09 22:43 | ADMGEN ---
This patient, Leonela Carrero, was admitted to 3 Med Surg Room 309-01. Patient/family oriented to hospital policies and general routines including ID bracelet, bed and alarms, visiting hours, pain management, procedures, bathroom and other care routines, personal items, smoking policy, room service/diet, and visiting hours. Information on how to activate the Rapid Response Team has been discussed. Patient/Family are encouraged to report perceived risks to care and to ask questions if they do not understand what they are told or what they should do.
[2025-06-09] MEDS: LACTATED RINGERS 1,000 ML 125 ML IV CONT (23:41)
[2025-06-10 02:58] VITALS: O2SAT 98
[2025-06-10 03:22] LABS: Add Urine Microscopic? YES; Appearance Urine Clear (Clear); Glucose Urine UA Negative (Negative); Leukocyte Esterase Ur 1+ LEU/UL (Negative); Need Manual Microscopic Reviewed; Nitrate Urine Negative (Negative); Non Pathogenic Casts 0-2; Specific Grav Ur 1.007 (1.001-1.035)
[2025-06-10 05:26] VITALS: BP 98/49; PULSE 70; RESP 18; TEMP 36.6; O2SAT 99
[2025-06-10 06:20] LABS: Hematocrit 34.1 % (37.0-47.0); Hemoglobin 11.2 g/dL (12.0-15.0); Mean Corpuscular HGB Conc 32.8 g/dl (32-36); Mean Corpuscular Hemoglobin 29.9 pg (26-34); Mean Corpuscular Volume 90.9 fl (80-100); Platelet Count Result 189 k/mm3 (150-375); Red Blood Count 3.75 M/mm3 (4.2-5.4); White Blood Count 4.6 K/mm3 (4.5-10.0)
[2025-06-10 06:50] LABS: Anion Gap 7 mmol/L (4-12); Blood Urea Nitrogen 53 mg/dL (7-17); Calcium 8.7 mg/dL (8.4-10.2); Carbon Dioxide 14 mmol/L (22-30); Chloride 114 mmol/L (98-107); Estimated CRCL calculation 13 ml/min; Estimated Glomerular Filt Rate 21; Glucose 93 mg/dL (65-110); Potassium 3.7 mmol/L (3.4-5.0); Sodium 135 mmol/L (137-145)
--- NOTE | 2025-06-10 08:04 | PC.NURSE ---
Patient stated history of urinary retention c/o suprapubic pressure and lower abdominal pain with palpation. Patient received 1 Liter Lactated ringer IV for maintenance fluids, but only urinated once which pt stated was minimal urine output. Assisted patient to bathroom to use toilet, turned on running water for stimulation, although was not able to eliminate any urine. Bladder scan showed 698 ml urine retained in bladder. Patient was straight catheterized with 500 ml output which relieved pain, pressure from bladder and suprapubic area. Dr. Kennedy, notified about urinary retention, order to place Peters catheter for urinary obstruction. Patient was stable, vital signs within normal range, call light/personal belongings within reach, bed lowest position, with fall precaution bed arm set.
[2025-06-10] MEDS: CYANOCOBALAMIN 500 MCG TABLET PO (08:08)
[2025-06-10] MEDS: CLOPIDOGREL BISULFATE 75 MG TABLET PO (08:09)
[2025-06-10] MEDS: CHOLECALCIFEROL (VITAMIN D3) 25 MCG (1,000 UNITS) TABLET 50 MCG PO (08:09)
[2025-06-10] MEDS: FERROUS SULFATE 325 MG TABLET BY MOUTH ×2 (08:13→17:57)
[2025-06-10 08:30] VITALS: PULSE 70; RESP 18; O2SAT 99
[2025-06-10] MEDS: LACTATED RINGERS 1,000 ML 125 ML IV CONT ×2 (08:34→17:57)
[2025-06-10 10:11] VITALS: BP 111/39
[2025-06-10 11:16] LABS: Toxigenic C. Diff NEGATIVE (NEGATIVE)
--- NOTE | 2025-06-10 11:43 | PC.NURSE ---
Held atenolol low bp, TRACTOR CRANE ENGINEER Miguelly made aware, bp's charted
--- NOTE | 2025-06-10 12:17 | P.HP_ITS ---
H&P: HPI History of Present Illness Date/Time: 06/10/25 11:20 Chief Complaint: Diarrhea Narrative: 89 year old female patient with a past medical history of PAD,anemia, nicotine dependence for over 70 years, hypertension, and hypercholesterolemia presents to the ED with a compliant of diarrhea. Patient states she has been having these episodes of loose stool with occasional blood for over 20 years. She has tried OTC medications but can not remember the name, but she states it did not work. She states she was suppose to see a GI doctor outpatient, but never got around to it. Patient was just hospitalized in December for an NICOLASA. According to the patient and her son- this the kidney injury was secondary to diarrhea that caused dehydration. Patient is a current smoker- 1 pack/ day. Patient denies drinking alcohol. Patient denies using substances. Patient states she has had unintentional weight loss of 3 lbs in the past week. Patient denies fever, dysuria, cough, headache, dizziness, nausea, and vomiting. Patient denies recent antibotic usage. Patient lives at home by herself and is a full code. She reports no change in appetite. Patient last bowel movement was this morning and she reports it being loose and watery. Patient denies food allergies. Patient reports nothing makes the diarrhea better, she also denies any allergies. Review of Systems 2 Review of Systems: All systems reviewed & are unremarkable except as noted in HPI and below PMFSH Past Medical History Medical History PAD (peripheral artery disease) Vitamin D deficiency Nicotine dependence Age-related cataract of both eyes Surgically removed with lens placement Ovarian cyst Surgically removed Raynauds phenomenon Seasonal allergies Hypertension Hypercholesterolemia Surgical History Surgical History History of removal of ovarian cyst History of cataract removal with insertion of prosthetic lens (~2014) Family History Family History Father Hypertension Mother Leukemia Sibling Lung cancer Sibling Lung cancer Social History Social History Social History: She smoked up to 1.5ppd x 70 yrs. Down to <1ppd. Rare alcohol use. No drug use hx Code status - full Surrogate decision maker - daughter Smoking packs per day: 1 Smoking cigarettes per day: 20.0 Years smoked: 65 Smoking pack-years: 65.00 Smoking status: Current every day smoker Tobacco type: cigarettes Alcohol intake: never Drinks per week: 2 Alcohol use details: Occasional Substance use: never Substance use type: does not use Lack of Transportation: No Lack of Food: Never True Current Housing: I Have Housing Concerned About Future Housing: No Difficulty Paying Gas/Electric Bills: No Difficulty Paying for Meds: No Currently Unemployed: No Education: High School Diploma/GED Difficulty w/ Childcare or Family Care: No Living arrangements: alone Occupation/Education: retired Gender identity (if verbalized by the patient): Female Spiritual care concerns: No Meds Home Medications and Allergies Home Medications ?Medication ?Instructions ?Recorded ?Confirmed ?Type cholecalciferol (vitamin D3) 50 2,000 unit PO DAILY #3 0 caps 08/16/19 06/09/25 Rx mcg (2,000 unit) capsule ketotifen fumarate 0.025 % (0.035 1 drp EACH EYE BID P balance wheel arm burnisher 08/09/21 06/09/25 Rx %) eye drops (Zaditor) symptoms #5 mL ferrous sulfate 325 mg (65 mg 325 mg PO BID #180 tabs 01/16/23 06/09/25 Rx iron) tablet mecobalamin (vitamin B12) 500 mcg 500 mcg PO DAILY 02/2206/09/25 History chewable tablet cilostazol 50 mg tablet 50 mg PO BID 02/22/24 History magnesium glycinate 100 mg (as 300 mg (3 x 100 mg) PO QHS #90 tabs 07/18/24 06/09/25 Rx glycinate) tablet psyllium husk 0.4 gram capsule 0.4 g PO DAILY #30 caps 07/18/24 06/09/25 Rx (Metamucil) atorvastatin 40 mg tablet See Rx Instructions .Route 0 11/11/24 06/09/25 Rx .COMPLEX #90 tabs atenolol 50 mg tablet See Rx Instructions .Route 1 07/09/24 06/09/25 Rx .COMPLEX #90 tabs clopidogrel 75 mg tablet 75 mg PO DAILY 05/20/2502/24 History Allergies Allergy/AdvReac Type Severity Reaction Status Date / Time No Known Allergies Allergy Verified 06/09/25 22:51 Vital Signs Vital Signs - 24 hr 06/09/25 16:31 06/09/25 19:57 06/09/25 19:58 Temperature 97.2 F L Pulse Rate 76 Respiratory Rate 16 Blood Pressure 104/50 L 132/72 Pulse Oximetry 100 97 Oxygen Delivery Room Air 06/09/25 20:01 06/09/25 20:04 06/09/25 20:15 Temperature Pulse Rate 64 Respiratory Rate 17 Blood Pressure 123/48 L Pulse Oximetry 81 L Oxygen Delivery 06/09/25 20:16 06/09/25 20:38 06/09/25 21:05 Temperature Pulse Rate 61 62 64 Respiratory Rate 17 17 17 Blood Pressure 98/48 L Pulse Oximetry 100 82 L Oxygen Delivery 06/09/25 21:15 06/09/25 21:16 06/09/25 21:30 Temperature Pulse Rate 62 61 63 Respiratory Rate 24 H 18 11 L Blood Pressure 91/48 L Pulse Oximetry 77 L Oxygen Delivery 06/09/25 21:52 06/09/25 22:10 06/09/25 22:16 Temperature Pulse Rate 63 71 60 Respiratory Rate 15 21 H 18 Blood Pressure 114/38 L Pulse Oximetry 97 84 L Oxygen Delivery 06/09/25 22:17 06/10/25 02:58 06/10/25 05:26 Temperature 97.8 F Pulse Rate 60 70 Respiratory Rate 16 18 Blood Pressure 98/49 L Pulse Oximetry 98 99 Oxygen Delivery Room Air 06/10/25 08:30 06/10/25 10:11 Temperature Pulse Rate 70 Respiratory Rate 18 Blood Pressure 111/39 L Pulse Oximetry 99 Oxygen Delivery Room Air Exam Const: General: comfortable Eyes: General: appearance normal, both eyes and all related structures Neck: Neck: supple and no JVD Thyroid: thyroid normal Resp: Effort & Inspection: normal respiratory effort Auscultation: clear to auscultation bilaterally Cardio: Rate: regular rate Rhythm: regular rhythm GI: GI Palp: Yes Soft to palpation, No Tenderness to palpation present (GI) and No Guarding due to palpation present (GI) Auscultation: normal bowel sounds : General: Yes bladder normal to palpation and Yes no CVA tenderness Urinary Catheter: Urinary Catheter: urine clear Skin: General skin exam: normal color Neuro: Speech: normal speech Motor exam (neuro): 5/5 motor strength present throughout Psych: Mental Status: mental status grossly normal Affect: normal affect Results Labs Labs: Short CBC 06/09/25 06/10/25 Range/Units 20:14 05:11 WBC 6.5 4.6 (4.5-10.0) K/mm3 Hgb 12.0 11.2 L (12.0-15.0) g/dL Hct 36.2 L 34.1 L (37.0-47.0) % Plt Count 219 189 (150-375) k/mm3 BMP 06/09/25 06/10/25 20:14 05:11 Sodium 134 L 135 L Potassium 3.6 3.7 Chloride 108 H 114 H Carbon Dioxide 15 L 14 L BUN 64 H 53 H D Creatinine 3.79 H 2.25 H Glucose 120 H 93 Calcium 8.9 8.7 Liver Function 06/09/25 Range/Units 20:14 Total Bilirubin 0.3 (0.2-1.3) mg/dL AST 27 (14-36) U/L ALT 17 (6-35) U/L Alkaline Phosphatase 76 (38-126) U/L Albumin 4.1 (3.5-5.1) g/dL Urine 06/10/25 Range/Units 02:55 Urine Color Yellow (Yellow) Urine Appearance Clear (Clear) Urine pH 5.0 (5.0-9.0) Ur Specific [place] 1.007 (1.001-1.035) Urine Protein Negative (Negative) mg/dL Urine Glucose (UA) Negative (Negative) mg/dL Critical Care Time Critical Care Time Indication: 55 Quality VTE Prophylaxis VTE prophylaxis: mechanical ordered Assessment and Plan Assessment and plan (1) Diarrhea: Code(s): R19.7 - Diarrhea, unspecified Status: Acute Assessment and Plan: Fluid replacement Monitor electrolytes Monitor I/O C Diff negative GI consulted (2) Unintentional weight loss: Code(s): R63.4 - Abnormal weight loss Status: Acute Assessment and Plan: Patient is on a heart healthy diet Patient is getting fluid replacement Monitoring I/O Daily weight checks (3) Dehydration: Code(s): E86.0 - Dehydration Status: Acute Assessment and Plan: Continue Lactated Ringer 125 mls/hr (4) NICOLASA (acute kidney injury): Code(s): N17.9 - Acute kidney failure, unspecified Status: Acute Assessment and Plan: BUN trending down, initial 64, currently 53 CR is trending down, initial 3.79, currently 2.25 Monioring GFR (5) Nicotine dependence: Qualifiers: Nicotine product type: cigarettes Substance use status: uncomplicated Qualified Code(s): F17.210 - Nicotine dependence, cigarettes, uncomplicated Code(s): F17.200 - Nicotine dependence, unspecified, uncomplicated Status: Acute Assessment and Plan: Patient was educated about smoking cessation (6) Iron deficiency anemia: Code(s): D50.9 - Iron deficiency anemia, unspecified Status: Acute Assessment and Plan: Patient sees Hematology outpatient Monitor H&H Continue ferrous sulfate 325 mg
--- NOTE | 2025-06-10 12:54 | P.CONGI_ITS ---
Assessment and Plan Assessment and plan (1) Chronic diarrhea: Code(s): K52.9 - Noninfective gastroenteritis and colitis, unspecified Status: Acute (2) Weight loss: Code(s): R63.4 - Abnormal weight loss Status: Acute (3) Decreased appetite: Code(s): R63.0 - Anorexia Status: Acute (4) NICOLASA (acute kidney injury): Code(s): N17.9 - Acute kidney failure, unspecified Status: Acute Plan 1. Chronic diarrhea/decreased appetite/weight loss: Per patient last colonoscopy > 9 years ago was unremarkable. Patient has never had an EGD. She admits to longstanding history of chronic intermittent diarrhea for > 20 years. She states that she typically has formed non urgent bowel movements daily but occasionally she will have a few days of diarrhea with a few loose to liquid bowel movements per day but symptoms typically resolve without intervention. She has used Imodium in the past but never frequently. Patient states that over the past 3 weeks her diarrhea has become more frequent and problematic. She is having multiple liquid and occasionally urgent bowel movements daily along with a decreased appetite. She states that over the past week she has lost around 3 lb. Last bowel movement was this morning and was still liquid and denies any associated abdominal pain. Per prior notes it stated that the patient had been experiencing some rectal bleeding which she denies. She states that she does have chronically dark stools without any recent change since starting oral iron supplementation. Stool study today showed negative C diff. * Will check stool studies for possible causes of her chronic diarrhea * Current symptoms seem to be in acute on chronic episode of diarrhea. This could be secondary to post infectious IBS versus acute inflammatory/infectious etiology versus motility disorder * Imodium 1-2 times daily to help decrease bowel frequency and urgency while we work up her diarrhea * Patient advised to follow-up in the GI office after her discharge for continued workup and management 2. NICOLASA: Acute on chronic. Kidney function improving but still abnormal since admission. BUN 64-->53 and creatinine 3.79-->2.25. * treatment/management per primary care team Thank you very much for allowing me to share in the care of this very nice patient. This report may have been done utilizing a voice recognition system. Attempts have been made to correct errors. However, there may be uncorrected grammatical, spelling, and recognition errors present. GI Consult Note Consult date/time: 06/10/25 12:54 Reason for consult: Diarrhea HPI: Leonela Carrero is a 89 year old female with history of HTN, peripheral artery disease, anemia, Raynaud's, HLD, and chronic diarrhea. Patient was seen with her son Homar at her bedside throughout the entire visit. Patient states she has a longstanding history of diarrhea for more than 20 years. She states her diarrhea was previously intermittent in nature and would happen a few times a day for a few days before resolving without intervention or occasionally would require the use of Imodium. When she is not experiencing diarrhea her bowel movements are typically formed non urgent. She states that around 3 weeks ago her diarrhea became more frequent and problematic. She has been having multiple liquid stools through the day that are occasionally urgent. She admits to dark stools but states that this is unchanged since starting supplemental iron. She admits to a decreased appetite recently and states that she has lost about 3 lb over the past week. Denies abdominal pain, nausea, vomiting, bloating, odynophagia, dysphagia, reflux, regurgitation, early satiety, constipation or hematochezia. She uses Aleve on a rare as needed basis. She was recently started on Plavix following a vascular intervention for peripheral vascular disease. She is a social drinker smokes < 1 pack per day and denies any use. ENDOSCOPY HISTORY: EGD: Patient states that she has never had an EGD COLONOSCOPY: Per patient last colonoscopy was around 9 years ago and was unremarkable. No family history of GI cancers or IBD LABS AND STOOL STUDIES: Labs 06/10/2025: Sodium 135, potassium 3.7, BUN 53, creatinine 2.25, GFR 21, calcium 8.7 WBC 5, Hgb 11, Hct 34, MCV 91, platelets 189 Total bilirubin 0.3, AST 27, ALT 17, Alkaline Phos 76, albumin 4.1 IMAGING: No recent GI imaging available today's visit [facility] Past Medical History Medical History PAD (peripheral artery disease) Vitamin D deficiency Nicotine dependence Age-related cataract of both eyes Surgically removed with lens placement Ovarian cyst Surgically removed Raynauds phenomenon Seasonal allergies Hypertension Hypercholesterolemia Surgical History Surgical History History of removal of ovarian cyst History of cataract removal with insertion of prosthetic lens (~2014) Family History Family History Father Hypertension Mother Leukemia Sibling Lung cancer Sibling Lung cancer Social History Social History Social History: She smoked up to 1.5ppd x 70 yrs. Down to <1ppd. Rare alcohol use. No drug use hx Code status - full Surrogate decision maker - daughter Smoking packs per day: 1 Smoking cigarettes per day: 20.0 Years smoked: 65 Smoking pack-years: 65.00 Smoking status: Current every day smoker Tobacco type: cigarettes Alcohol intake: never Drinks per week: 2 Alcohol use details: Occasional Substance use: never Substance use type: does not use Lack of Transportation: No Lack of Food: Never True Current Housing: I Have Housing Concerned About Future Housing: No Difficulty Paying Gas/Electric Bills: No Difficulty Paying for Meds: No Currently Unemployed: No Education: High School Diploma/GED Difficulty w/ Childcare or Family Care: No Living arrangements: alone Occupation/Education: retired Gender identity (if verbalized by the patient): Female Spiritual care concerns: No Meds Home Medications and Allergies Home Medications ?Medication ?Instructions ?Recorded ?Confirmed ?Type cholecalciferol (vitamin D3) 50 2,000 unit PO DAILY #3 0 caps 08/16/19 06/09/25 Rx mcg (2,000 unit) capsule ketotifen fumarate 0.025 % (0.035 1 drp EACH EYE BID P roll handler 08/09/21 06/09/25 Rx %) eye drops (Zaditor) symptoms #5 mL ferrous sulfate 325 mg (65 mg 325 mg PO BID #180 tabs 01/16/23 06/09/25 Rx iron) tablet mecobalamin (vitamin B12) 500 mcg 500 mcg PO DAILY 02/2206/09/25 History chewable tablet cilostazol 50 mg tablet 50 mg PO BID 02/22/24 History magnesium glycinate 100 mg (as 300 mg (3 x 100 mg) PO QHS #90 tabs 07/18/24 06/09/25 Rx glycinate) tablet psyllium husk 0.4 gram capsule 0.4 g PO DAILY #30 caps 07/18/24 06/09/25 Rx (Metamucil) atorvastatin 40 mg tablet See Rx Instructions .Route 0 11/11/24 06/09/25 Rx .COMPLEX #90 tabs atenolol 50 mg tablet See Rx Instructions .Route 1 07/09/24 06/09/25 Rx .COMPLEX #90 tabs clopidogrel 75 mg tablet 75 mg PO DAILY 05/20/2502/24 History Allergies Allergy/AdvReac Type Severity Reaction Status Date / Time No Known Allergies Allergy Verified 06/09/25 22:51 Vital Signs Vital Signs - 24 hr 06/09/25 16:31 06/09/25 19:57 06/09/25 19:58 Temperature 97.2 F L Pulse Rate 76 Respiratory Rate 16 Blood Pressure 104/50 L 132/72 Pulse Oximetry 100 97 Oxygen Delivery Room Air 06/09/25 20:01 06/09/25 20:04 06/09/25 20:15 Temperature Pulse Rate 64 Respiratory Rate 17 Blood Pressure 123/48 L Pulse Oximetry 81 L Oxygen Delivery 06/09/25 20:16 06/09/25 20:38 06/09/25 21:05 Temperature Pulse Rate 61 62 64 Respiratory Rate 17 17 17 Blood Pressure 98/48 L Pulse Oximetry 100 82 L Oxygen Delivery 06/09/25 21:15 06/09/25 21:16 06/09/25 21:30 Temperature Pulse Rate 62 61 63 Respiratory Rate 24 H 18 11 L Blood Pressure 91/48 L Pulse Oximetry 77 L Oxygen Delivery 06/09/25 21:52 06/09/25 22:10 06/09/25 22:16 Temperature Pulse Rate 63 71 60 Respiratory Rate 15 21 H 18 Blood Pressure 114/38 L Pulse Oximetry 97 84 L Oxygen Delivery 06/09/25 22:17 06/10/25 02:58 06/10/25 05:26 Temperature 97.8 F Pulse Rate 60 70 Respiratory Rate 16 18 Blood Pressure 98/49 L Pulse Oximetry 98 99 Oxygen Delivery Room Air 06/10/25 08:30 06/10/25 10:11 Temperature Pulse Rate 70 Respiratory Rate 18 Blood Pressure 111/39 L Pulse Oximetry 99 Oxygen Delivery Room Air Results Labs 06/10/25 05:11 06/10/25 05:11 Labs: Short CBC 06/09/25 06/10/25 Range/Units 20:14 05:11 WBC 6.5 4.6 (4.5-10.0) K/mm3 Hgb 12.0 11.2 L (12.0-15.0) g/dL Hct 36.2 L 34.1 L (37.0-47.0) % Plt Count 219 189 (150-375) k/mm3 BMP 06/09/25 06/10/25 20:14 05:11 Sodium 134 L 135 L Potassium 3.6 3.7 Chloride 108 H 114 H Carbon Dioxide 15 L 14 L BUN 64 H 53 H D Creatinine 3.79 H 2.25 H Glucose 120 H 93 Calcium 8.9 8.7 Liver Function 06/09/25 Range/Units 20:14 Total Bilirubin 0.3 (0.2-1.3) mg/dL AST 27 (14-36) U/L ALT 17 (6-35) U/L Alkaline Phosphatase 76 (38-126) U/L Albumin 4.1 (3.5-5.1) g/dL Urine 06/10/25 Range/Units 02:55 Urine Color Yellow (Yellow) Urine Appearance Clear (Clear) Urine pH 5.0 (5.0-9.0) Ur Specific [place] 1.007 (1.001-1.035) Urine Protein Negative (Negative) mg/dL Urine Glucose (UA) Negative (Negative) mg/dL
[2025-06-10 14:00] VITALS: BP 92/45; PULSE 77; RESP 14; TEMP 36.6; O2SAT 100
[2025-06-10 17:21] LABS: CRP 0.7 mg/dL (<1.0)
[2025-06-10 20:21] VITALS: BP 98/52; PULSE 70; RESP 16; TEMP 36.7; O2SAT 100
[2025-06-11] MEDS: LACTATED RINGERS 1,000 ML 125 ML IV CONT (02:47)
[2025-06-11 05:31] VITALS: BP 90/44; PULSE 84; RESP 18; TEMP 37.1; O2SAT 96
--- NOTE | 2025-06-11 07:47 | PM.IMPN2 ---
Assessment and Plan Assessment and Plan (1) NICOLASA (acute kidney injury): Code(s): N17.9 - Acute kidney failure, unspecified Status: Acute (2) Diarrhea: Code(s): R19.7 - Diarrhea, unspecified Status: Acute (3) Decreased appetite: Code(s): R63.0 - Anorexia Status: Acute (4) Nicotine dependence: Qualifiers: Nicotine product type: cigarettes Substance use status: uncomplicated Qualified Code(s): F17.210 - Nicotine dependence, cigarettes, uncomplicated Code(s): F17.200 - Nicotine dependence, unspecified, uncomplicated Status: Acute (5) Anemia: Qualifiers: Anemia type: unspecified type Qualified Code(s): D64.9 - Anemia, unspecified Code(s): D64.9 - Anemia, unspecified Status: Acute Subjective Date/time seen: 06/11/25 07:47#### Review of Systems Review of Systems: All systems reviewed & are unremarkable except as noted in HPI and below Objective Data Vital Signs Vital Signs: Vital Signs - 24 hr 06/10/25 08:30 06/10/25 10:11 06/10/25 14:00 Temperature 97.9 F Pulse Rate 70 77 Respiratory Rate 18 14 Blood Pressure 111/39 L 92/45 L Pulse Oximetry 99 100 Oxygen Delivery Room Air 06/10/25 20:00 06/10/25 20:21 06/11/25 05:31 Temperature 98.1 F 98.7 F Pulse Rate 70 84 Respiratory Rate 16 18 Blood Pressure 98/52 L 90/44 L Pulse Oximetry 100 96 Oxygen Delivery Room Air Intake/Output Intake/Output: Intake & Output 06/08/25 06/09/25 06/10/25 06/11/25 23:59 23:59 23:59 23:59 Intake Total 2870 1000 Output Total 2150 1150 Balance 720 -150 Meds/Results Medications: Active Medications Generic Name Dose Route Start Last Admin Trade Name Freq PRN Reason Stop Dose Admin Atenolol 50 mg 06/10/25 09:00 06/10/25 11:41 Atenolol 50 Mg Tablet PO Not Given DAILY NEGRITA Cilostazol 50 mg 06/10/25 06:30 06/11/25 05:59 Cilostazol 50 Mg Tablet PO 50 mg BIDAC NEGRITA Administration Clopidogrel Bisulfate 75 mg 06/10/25 09:00 06/10/25 08:09 Clopidogrel Bisulfate 75 Mg Tablet PO 75 mg DAILY NEGRITA Administration Cyanocobalamin 500 mcg 06/10/25 09:00 06/10/25 08:08 Cyanocobalamin 500 Mcg Tablet PO 500 mcg QAM NEGRITA Administration Ferrous Sulfate 325 mg 06/10/25 09:00 06/10/25 17:57 Ferrous Sulfate 325 Mg Tablet BY MOUTH 325 mg BID NEGRITA Administration Heparin Sodium (Porcine) 5,000 units 06/10/25 09:00 06/10/25 20:48 Heparin Sodium 5,000 Units/Ml Vial SUB-Q 5,000 units Q12HR NEGRITA Administration Lactated Ringer's 1,000 mls @ 125 mls/hr 06/09/25 21:45 06/11/25 02:47 Lr - Lactated Ringers Iv IV CONT 125 mls/hr .Q8H NEGRITA Administration Melatonin 5 mg 06/10/25 05:13 Melatonin 5 Mg Tablet PO HS PRN Sleep Vitamin D 50 mcg 06/10/25 09:00 06/10/25 08:09 Cholecalciferol (Vitamin D3) 25 Mcg (1,000 Units) Tablet PO 50 mcg DAILY NEGRITA Administration Radiology Results: ITS Impressions Renal Ultrasound 06/10/25 08:18 IMPRESSION: 1. Normal kidneys without hydronephrosis. Abdomen/Pelvis CT 06/10/25 17:09 IMPRESSION: 1. Limited noncontrast examination is not optimal to evaluate neoplasms, vascular structures and solid viscera. 2. Diffusely dilated colon with liquid stool suggestive of colitis and diarrhea. Ischemic versus inflammatory origin. 3. Severe calcific changes of abdominal aorta and iliac arteries particularly right common iliac artery. Significant atherosclerotic changes at the proximal superior mesenteric artery and both renal arteries. Labs Labs: Laboratory Results - last 24 hr 06/10/25 06/10/25 06:08 10:15 Sodium 135 L Potassium 3.7 Chloride 114 H Carbon Dioxide 14 L Anion Gap 7 BUN 53 H D Creatinine 2.25 H Estim Creat Clear Calc 13 Estimated GFR 21 L Glucose 93 Calcium 8.7 C-Reactive Protein 0.7 C. difficile (PCR) Negative
[2025-06-11 08:49] LABS: Hematocrit 29.0 % (37.0-47.0); Hemoglobin 9.6 g/dL (12.0-15.0); Immature Granulocyte Percent A 0.3 % (0-0.5); Lymphocytes Absolute Auto 1.10 K/mm3 (0.9-3.2); Mean Corpuscular HGB Conc 33.1 g/dl (32-36); Mean Corpuscular Hemoglobin 29.4 pg (26-34); Mean Corpuscular Volume 89.0 fl (80-100); Nucleated Red Blood Cells Absolute Auto 0.000 K/mm3 (0.0-0.012); Nucleated Red Blood Cells Perc 0.0 % (0.0-0.2); Platelet Count Result 181 k/mm3 (150-375); Red Blood Count 3.26 M/mm3 (4.2-5.4); White Blood Count 3.3 K/mm3 (4.5-10.0)
[2025-06-11 09:05] LABS: Anion Gap 2 mmol/L (4-12); Blood Urea Nitrogen 26 mg/dL (7-17); Calcium 8.4 mg/dL (8.4-10.2); Carbon Dioxide 21 mmol/L (22-30); Chloride 113 mmol/L (98-107); Estimated CRCL calculation 29 ml/min; Estimated Glomerular Filt Rate 55; Glucose 89 mg/dL (65-110); Potassium 3.4 mmol/L (3.4-5.0); Sodium 136 mmol/L (137-145)
[2025-06-11] MEDS: FERROUS SULFATE 325 MG TABLET BY MOUTH (09:55)
[2025-06-11] MEDS: CYANOCOBALAMIN 500 MCG TABLET PO (09:55)
[2025-06-11] MEDS: CLOPIDOGREL BISULFATE 75 MG TABLET PO (09:55)
[2025-06-11] MEDS: CHOLECALCIFEROL (VITAMIN D3) 25 MCG (1,000 UNITS) TABLET 50 MCG PO (09:55)
[2025-06-11 10:06] VITALS: BP 105/68
[2025-06-11 14:00] VITALS: BP 124/53; PULSE 71; RESP 22; TEMP 37.2; O2SAT 99
--- NOTE | 2025-06-11 14:20 | P.DS_ITS ---
DS: Admitting Diagnosis Discharge Date NICOLASA Admitting Diagnosis NICOLASA DS: Discharge Diagnosis Discharge Diagnosis (1) NICOLASA (acute kidney injury): Code(s): N17.9 - Acute kidney failure, unspecified Status: Acute (2) Diarrhea: Code(s): R19.7 - Diarrhea, unspecified Status: Acute (3) Anemia: Qualifiers: Anemia type: unspecified type Qualified Code(s): D64.9 - Anemia, unspecified Code(s): D64.9 - Anemia, unspecified Status: Acute (4) Weight loss: Code(s): R63.4 - Abnormal weight loss Status: Acute (5) Decreased appetite: Code(s): R63.0 - Anorexia Status: Acute (6) Nicotine dependence: Qualifiers: Nicotine product type: cigarettes Substance use status: uncomplicated Qualified Code(s): F17.210 - Nicotine dependence, cigarettes, uncomplicated Code(s): F17.200 - Nicotine dependence, unspecified, uncomplicated Status: Acute DS: Summary Hospital Course Reason for hospitalization: Diarrhea Hospital Course: 89 year old female patient with a past medical history of PAD,anemia, nicotine dependence for over 70 years, hypertension, and hypercholesterolemia presents to the ED with a compliant of diarrhea. Patient was admitted in the ED and was started on IV fluids. NICOLASA was noted with a CR 3.8 with a non gap acidosis, mostly likely related to dehyradtion from diarrhea. Renal US was normal with hydronephrosis. CT scan showed . GI was consulted and renal function returned to normal. Diarrheaa improved. Patient declined colonoscopy. GI consulted and recommended outpatient. Hemglobin was noted to be declined to 9 likely related to diarrhea. Patient is ambulating, eating, and is in no acute stress. Status at Discharge Cognitive/behavioral status at discharge: Stable Time Spent with Patient Time attestation: Total time spent providing and/or coordinating discharge services: Exam Const: General: comfortable Eyes: Sclera: sclerae normal Pupils: Equal, round and reactive pupils present Neck: Neck: supple and no JVD Thyroid: thyroid normal Resp: Effort & Inspection: normal respiratory effort Cardio: Rate: regular rate Rhythm: regular rhythm GI: GI Palp: Yes Soft to palpation Auscultation: normal bowel sounds : Bimanual exam- vagina & uterus: bladder normal to palpation Urinary Catheter: Urinary Catheter: urine clear Skin: General skin exam: normal color Neuro: General: gait normal Motor exam (neuro): 5/5 motor strength present throughout Sensory Exam: normal sensation Psych: Affect: normal affect DS: Data Data Completed and Pending Labs on day of discharge: Labs from last 24 hours 06/11/25 06/10/25 08:14 06:08 WBC 3.3 L RBC 3.26 L Hgb 9.6 L Hct 29.0 L MCV 89.0 MCH 29.4 MCHC 33.1 RDW 15.0 H Plt Count 181 MPV 10.7 H Immature Gran % (Auto) 0.3 Neut % (Auto) 44.8 L Lymph % (Auto) 33.2 [place] % (Auto) 19.3 H Eos % (Auto) 1.2 Baso % (Auto) 1.2 Lymph # (Auto) 1.10 [place] # (Auto) 0.6 Eos # (Auto) 0.0 Baso # (Auto) 0.0 Abs Immat Gran (auto) 0.01 Absolute Neuts (auto) 1.5 Absolute Nucleated RBC 0.000 Nucleated RBC % 0.0 Sodium 136 L 135 L Potassium 3.4 3.7 Chloride 113 H 114 H Carbon Dioxide 21 L 14 L Anion Gap 2 L 7 BUN 26 H D 53 H D Creatinine 0.96 2.25 H Estim Creat Clear Calc 29 13 Estimated GFR 55 L 21 L Glucose 89 93 Calcium 8.4 8.7 C-Reactive Protein 0.7 Discharge Plan Discharge Attending physician on discharge: Octavio Handley Consulting providers: Juan Murray Discharging Clinician: Jules Dooley Anticipated Discharge Date/Time: 06/11/25 17:25 Patient Disposition: Home Activity: as tolerated Diet: heart healthy Discharge Instructions: You were hospitalized with an acute kidney injury (NICOLASA), which means your kidneys suddently stopped working as well as they should. Your kidneys are important organs that filter waste from your blood and help control fluid balance. You were also hospitalized for acute on chronic diarrhea. GI was consulted and recommended outpatient colonoscopy. Gi consulted- recommended outpatient GI consult for colonoscopy. Patient agreed she would make the appointment as soon as possible. * will receive a follow up call if found abnormal. * Please follow up with GI for colonoscopy * Please stop smoking Side effects of medications discussed Call 911 if you experience any of these symptoms: * Dizziness * Lightheadedness * shortness of breathe * confusion * consistent fever of 100.4 or greater Patient Instructions: Atenolol (By mouth), Clopidogrel (By mouth), How to Stop Smoking (ED), Dehydration (DC), Colonoscopy (DC) Patient Language: Chinese Stand Alone Forms: General Discharge Information Follow-up/Referrals: Kristine Mahmood IMPACT HAMMER OPERATOR [Primary Care Provider, Family Practice] - 2 Weeks Juan Murray MD [Physician, Gastroenterology] - Call for Appointment Discharge Medications: Continued magnesium glycinate 100 mg tablet 300 mg PO QHS Qty: 90 0RF ketotifen fumarate [Zaditor] 0.025 % (0.035 %) drops 1 drp EACH EYE BID PRN (Reason: allergy symptoms) Qty: 5 0RF Rx Instructions: administer at least 8 hours apart mecobalamin (vitamin B12) 500 mcg tablet,chewable 500 mcg PO DAILY cilostazol 50 mg tablet 50 mg PO BID clopidogrel 75 mg tablet 75 mg PO DAILY cholecalciferol (vitamin D3) 50 mcg (2,000 unit) capsule 2,000 unit PO DAILY Qty: 30 1RF ferrous sulfate 325 mg (65 mg iron) tablet 325 mg PO BID Qty: 180 0RF psyllium husk [Metamucil] 0.4 gram capsule 0.4 g PO DAILY Qty: 30 0RF atorvastatin 40 mg tablet See Rx Instructions .ROUTE .COMPLEX Qty: 90 3RF Dose Instruction: TAKE 1 TABLET DAILY Rx Instructions: TAKE 1 TABLET DAILY atenolol 50 mg tablet See Rx Instructions .ROUTE .COMPLEX Qty: 90 3RF Dose Instruction: TAKE 1 TABLET DAILY Rx Instructions: TAKE 1 TABLET DAILY Date of admission: 06/10/25 10:48 Primary Care Provider: Kristine Mahmood Admitting Provider: Nunu Kennedy Attending physician on admission: Nunu Kennedy Condition: Stable
--- NOTE | 2025-06-11 17:12 | WPDGIPROGNO ---
Progress Note: A&P Assessment and Plan (1) Chronic diarrhea: Code(s): K52.9 - Noninfective gastroenteritis and colitis, unspecified Status: Acute Assessment and Plan: will set up colonoscopy kyle as outpatient given chronic diarrhea stool studies for EPI and calprotectin pending if work up negative will need serology for celiac (2) Weight loss: Code(s): R63.4 - Abnormal weight loss Status: Acute (3) Acute kidney injury superimposed on chronic kidney disease: Code(s): N17.9 - Acute kidney failure, unspecified; N18.9 - Chronic kidney disease, unspecified Status: Acute Assessment and Plan: treated (4) Dehydration: Code(s): E86.0 - Dehydration Status: Acute Assessment and Plan: resolved (5) Metabolic acidosis: Code(s): E87.20 - Acidosis, unspecified Status: Acute Subjective Date/time seen: 06/11/25 17:12 Interval history: less diarrhea, she is going home today family members at bedside, they say that chronic diarrhea for quite some time. Review of Systems Review of Systems: All systems reviewed & are unremarkable except as noted in HPI and below Exam Const: General: comfortable and no acute distress HENMT: Face/Nose/Sinus: Normal nares present Eyes: General: appearance normal, both eyes and all related structures Neck: Neck: no JVD Resp: Auscultation: clear to auscultation bilaterally Cardio: Rate: regular rate Rhythm: regular rhythm GI: Inspection: non-distended GI Palp: Yes Soft to palpation Skin: General skin exam: normal color Neuro: Speech: normal speech Extrem: General: normal to inspection Psych: Mental Status: mental status grossly normal Objective Data Vital Signs Vital Signs: Vital Signs - 24 hr 06/10/25 20:00 06/10/25 20:21 06/11/25 05:31 Temperature 98.1 F 98.7 F Pulse Rate 70 84 Respiratory Rate 16 18 Blood Pressure 98/52 L 90/44 L Pulse Oximetry 100 96 Oxygen Delivery Room Air 06/11/25 09:55 06/11/25 10:06 06/11/25 14:00 Temperature 98.9 F Pulse Rate 71 Respiratory Rate 22 H Blood Pressure 105/68 124/53 L Pulse Oximetry 99 Oxygen Delivery Room Air Intake/Output Intake/Output: Intake & Output 12/07/06/09/25 06/10/25 06/11/25 23:59 23:59 23:59 23:59 Intake Total 2870 1480 Output Total 2150 1150 Balance 720 330 Meds/Results Medications: Active Medications Generic Name Dose Route Start Last Admin Trade Name Freq PRN Reason Stop Dose Admin Atenolol 50 mg 06/10/25 09:00 06/11/25 09:55 Atenolol 50 Mg Tablet PO 50 mg DAILY NEGRITA Administration Cilostazol 50 mg 06/10/25 06:30 06/11/25 05:59 Cilostazol 50 Mg Tablet PO 50 mg BIDAC NEGRITA Administration Clopidogrel Bisulfate 75 mg 06/10/25 09:00 06/11/25 09:55 Clopidogrel Bisulfate 75 Mg Tablet PO 75 mg DAILY NEGRITA Administration Cyanocobalamin 500 mcg 06/10/25 09:00 06/11/25 09:55 Cyanocobalamin 500 Mcg Tablet PO 500 mcg QAM NEGRITA Administration Ferrous Sulfate 325 mg 06/10/25 09:00 06/11/25 09:55 Ferrous Sulfate 325 Mg Tablet BY MOUTH 325 mg BID NEGRITA Administration Heparin Sodium (Porcine) 5,000 units 06/10/25 09:00 06/11/25 09:55 Heparin Sodium 5,000 Units/Ml Vial SUB-Q 5,000 units Q12HR NEGRITA Administration Melatonin 5 mg 06/10/25 05:13 Melatonin 5 Mg Tablet PO HS PRN Sleep Vitamin D 50 mcg 06/10/25 09:00 06/11/25 09:55 Cholecalciferol (Vitamin D3) 25 Mcg (1,000 Units) Tablet PO 50 mcg DAILY NEGRITA Administration Radiology Results: ITS Impressions Renal Ultrasound 06/10/25 08:18 IMPRESSION: 1. Normal kidneys without hydronephrosis. Abdomen/Pelvis CT 06/10/25 17:09 IMPRESSION: 1. Limited noncontrast examination is not optimal to evaluate neoplasms, vascular structures and solid viscera. 2. Diffusely dilated colon with liquid stool suggestive of colitis and diarrhea. Ischemic versus inflammatory origin. 3. Severe calcific changes of abdominal aorta and iliac arteries particularly right common iliac artery. Significant atherosclerotic changes at the proximal superior mesenteric artery and both renal arteries. Labs Labs: Laboratory Results - last 24 hr 06/10/25 06/11/25 06:08 08:14 WBC 3.3 L RBC 3.26 L Hgb 9.6 L Hct 29.0 L MCV 89.0 MCH 29.4 MCHC 33.1 RDW 15.0 H Plt Count 181 MPV 10.7 H Immature Gran % (Auto) 0.3 Neut % (Auto) 44.8 L Lymph % (Auto) 33.2 [place] % (Auto) 19.3 H Eos % (Auto) 1.2 Baso % (Auto) 1.2 Lymph # (Auto) 1.10 [place] # (Auto) 0.6 Eos # (Auto) 0.0 Baso # (Auto) 0.0 Abs Immat Gran (auto) 0.01 Absolute Neuts (auto) 1.5 Absolute Nucleated RBC 0.000 Nucleated RBC % 0.0 Sodium 136 L Potassium 3.4 Chloride 113 H Carbon Dioxide 21 L Anion Gap 2 L BUN 26 H D Creatinine 0.96 Estim Creat Clear Calc 29 Estimated GFR 55 L Glucose 89 Calcium 8.4 C-Reactive Protein 0.7
[2025-06-12 18:08] LABS: Pancreatic Elastase, Fecal 13 (>200)
[2025-06-13 01:07] LABS: Calprotectin, Fecal 319 ug/g (0-120)
== END 2025-06-11 17:06 | disposition home or self-care (01) | DRG 683 ==
LOC: ANHED 21:04 → ANH3MEDSUR 22:33
PROVIDERS: Nurse Practitioner Family; Admitting Provider Internal Medicine; Emergency Provider Emergency Medicine; PCP Nurse Practitioner Family
DX: N17.9 Acute kidney failure, unspecified (principal); E87.29 Other acidosis; E86.0 Dehydration; R19.7 Diarrhea, unspecified; I12.9 Hypertensive chronic kidney disease with stage 1 through stage 4 chronic kidney disease, or unspecified chronic kidney disease; N18.9 Chronic kidney disease, unspecified; E78.00 Pure hypercholesterolemia, unspecified; F17.210 Nicotine dependence, cigarettes, uncomplicated; I73.9 Peripheral vascular disease, unspecified; D50.9 Iron deficiency anemia, unspecified; R63.4 Abnormal weight loss; I73.00 Raynaud's syndrome without gangrene
CPT/HCPCS: 36415; 74176; 76770; 80048; 80053; 81001; 82570; 82653; 83993; 84300; 85025; 85027; 86140; 87045; 87046; 87086; 87427; 87493; 99285; A9270; G0378; J1644; J7120

== ENCOUNTER 2025-06-18 15:49 | Outpatient (CLI) | payer MEDICARE, SELFPAY ==
[2025-06-18 16:08] LABS: Hematocrit 32.6 % (35.0-42.0); Hemoglobin 10.8 g/dL (11.7-13.8); Immature Granulocyte Percent A 0.6 % (0.0-0.0); Lymphocytes Absolute Auto 2.00 K/mm3 (1.10-4.50); Mean Corpuscular HGB Conc 33.1 g/dL (32-36); Mean Corpuscular Hemoglobin 29.8 pg (27.0-31.0); Mean Corpuscular Volume 89.8 fL (78.0-102.0); Nucleated Red Blood Cells Absolute Auto 0.00 K/mm3 (0.00-0.00); Nucleated Red Blood Cells Perc 0.0 % (0-0.0); Platelet Count Result 317 K/mm3 (150-420); Red Blood Count 3.63 M/mm3 (4.20-5.40); White Blood Count 8.2 K/mm3 (4.8-10.8)
[2025-06-18 16:39] LABS: Alanine Aminotransferase 18 U/L (6-35); Albumin Level 4.0 g/dL (3.5-5.1); Alkaline Phosphatase 75 U/L (38-126); Anion Gap 10 mmol/L (4-12); Aspartate Amino Transferase 30 U/L (14-36); Bilirubin,Total 0.3 mg/dL (0.2-1.3); Blood Urea Nitrogen 20 mg/dL (7-17); Calcium 9.3 mg/dL (8.4-10.2); Carbon Dioxide 26 mmol/L (22-30); Chloride 106 mmol/L (98-107); Estimated Glomerular Filt Rate 40; Glucose 81 mg/dL (65-110); Iron 94 ug/dL (37-170); Osmolality Calculated 295 mOsm/kg (285-295); Potassium 2.9 mmol/L (3.4-5.0); Sodium 142 mmol/L (137-145); Total Protein 6.4 g/dL (6.3-8.2)
[2025-06-18 16:48] LABS: Percent Iron Saturation 42 % (20-50)
[2025-06-18 17:13] LABS: Ferritin 48.10 ng/mL (11.1-264)
--- OUTSIDE RECORDS SUMMARY | 2025-06-18 18:06 | XMS_ITS | Encounter Summary ---
Author Organization [facility] Address [address] [place] [address] Care Team Providers Care Shift Superintendent Caustic Cresylate Name Role Phone Cisco Liz Primary Care Provider [phone] Tristan Smith MD Unavailable [phone] Encounter Details Date Type Department Care Team ([facility] Contact Info) Description 03/31/2025 Prep for Procedure [facility] [address] [place] [address] Tristan Smith MD [address] [facility] [address] [place] [address] Social History Tobacco Use Types [...] AM CDT Halina Gonzales RN Active * [place] Suicide Severity Rating Scale (Screener/Recent Self-Report) Question [...] Care Team (Late st Contact Info) Description 06/20/2025 10:30 AM LAND SURVEYING MANAGER Appointment [facility] [address] [place] [address] Tristan Smith MD [address], [address] [address] 06/23/2025 10:30 AM LAND SURVEYING MANAGER Appointment [facility] [place] [facility] [place] [address] Tristan Smith MD [address], [address] [address] 06/25/2025 10:30 AM LAND SURVEYING MANAGER Appointment [facility] [place] [address] Tristan Smith MD [address], [address] [address] 06/27/2025 10:30 AM LAND SURVEYING MANAGER Appointment [facility] [place] [address] Tristan Smith MD [address], [address] [address] 06/30/2025 10:30 AM LAND SURVEYING MANAGER Appointment [facility] [place] [address] Tristan Smith MD [address], [address] [address] 07/02/2025 10:30 AM LAND SURVEYING MANAGER Appointment [facility] [address] [place] [address] Tristan Smith MD [address], [address] [address] 07/04/2025 10:30 AM LAND SURVEYING MANAGER Appointment [facility] [address] [place] [address] Tristan Smith MD [address], [address] [address] 07/07/2025 10:30 AM LAND SURVEYING MANAGER Appointment [facility] [place] [address] Tristan Smith MD [address], [address] [address] 07/09/2025 10:30 AM LAND SURVEYING MANAGER Appointment [facility] [place] [address] Tristan Smith MD [address], [address] [address] 07/11/2025 10:30 AM LAND SURVEYING MANAGER Appointment [facility] [place] [address] Tristan Smith MD [address], [address] [address] 07/14/2025 10:30 AM LAND SURVEYING MANAGER Appointment [facility] [address] [place] [address] Tristan Smith MD [address], [address] [address] 07/16/2025 10:30 AM LAND SURVEYING MANAGER Appointment [facility] [address] [place] [address] Tristan Smith MD [address], [address] [address] 07/18/2025 10:30 AM LAND SURVEYING MANAGER Appointment [facility] [address] [place] [address] Tristan Smith MD [address], [address] [address] 07/21/2025 10:30 AM LAND SURVEYING MANAGER Appointment [facility] [place] [address] Tristan Smith MD [address], [address] [address] 07/23/2025 10:30 AM LAND SURVEYING MANAGER Appointment [facility] [place] [address] Tristan Smith MD [address], [address] [address] 07/25/2025 10:30 AM LAND SURVEYING MANAGER Appointment [facility] [place] [address] Tristan Smith MD [address], [address] [address] 07/28/2025 10:30 AM LAND SURVEYING MANAGER Appointment [facility] [place] [address] Tristan Smith MD [address] [address] 07/30/2025 10:30 AM LAND SURVEYING MANAGER Appointment [facility] [address] [place] [address] [place] [address] Tristan Smith MD [address] , [address] [address] 08/01/2025 10:30 AM LAND SURVEYING MANAGER Appointment [facility] [address] [place], [place] [address] [address] Tristan Smith MD [address] [place], [place] [address] , [address] [address] 08/04/2025 10:30 AM LAND SURVEYING MANAGER Appointment [facility] [address] [place], [place] [address] [address] Tristan Smith MD [address] [place] [address], [address] [address] 08/26/2025 11:00 AM LAND SURVEYING MANAGER Office Visit [facility] [address] [place] [address] [phone] Tristan Smith MD [address] [facility], [address] [address] documented as of this encounter Visit Diagnoses Not on filedocumented in this encounter Care Teams Shift Superintendent Caustic Cresylate Relationship Specialty Start Date End Date Cisco Liz DO [address] [place] [address] PCP - General FAMILY PRACTICE 04/18/23 Tristan Smith MD [address], [address] [address] Physician INTERVENTIONAL CARDIOLOGY 10/04/24 documented as of this encounter
--- OUTSIDE RECORDS SUMMARY | 2025-06-18 18:06 | XMS_ITS | Clinical Summary ---
Author Organization [facility] Jimbo garcia Que Address [address] [place] [address] Care Team Providers Care Beef Cattle Specialist Name Role Phone Cisco Liz DO Primary Care Provider [phone] Allergies No known active allergies Medications atenoloL [...] st Contact Info) Description 07/07/2025 11:00 AM SALVATIONIST Office Visit [facility] Oncology and Hematology - [place] [address] [facility] [address] [place] [address] Kamari Hansen MD [address] [facility] [address] [place] [address] Health Maintenance Due Date Last Done Comments DTAP/TDAP/TD VACCINES (1 - Tdap) 1954 PNEUMOCOCCAL VACCINE 50+ YEARS (1 of 1 - PCV) 12/05/18 88 ZOSTER VACCINE (1 of 2) 12/06/1987 OSTEOPOROSIS SCREENING 2002 RSV VACCINE (60+ or ) (1 - 1-dose 75+ series) 2012 INFLUENZA VACCINE (#1) 2025 Insurance [facility] [place] [address] MEDICARE PART A AND B Care Teams Beef Cattle Specialist Relationship Specialty Start Date End Date Cisco Liz DO [address] [place] [address] PCP - General Family Practice 11/22/22
--- OUTSIDE RECORDS SUMMARY | 2025-06-18 18:06 | XMS_ITS | Clinical Summary ---
Author Organization [facility] Address [address] [place] [address] Care Team Providers Care Casting Repairer Name Role Phone Cisco Liz DO Primary Care Provider [phone] Tristan Smith MD Unavailable [phone] Allergies No known active allergies Medications amLODIPine [...] Diagnosed Date Coronary artery disease invo lving [place] bay coronary artery of [place] heart without angina pectoris 12/17/2024 Primary hypertension 05/10/2023 PAD (peripheral artery disease) 05/05/2023 Hyperlipidemia, unspecified hyperlipidemia type 05/05/2023 Other secondary hypertension 05/05/2023 Encounters Date Type Department Care Team Description 06/12/2025 Telephone [facility] [address] [place] [address] Tristan Smith MD Surgical Clearance 06/06/2025 10:27 AM RIVETER HAND - 06/06/2025 11:59 PM RIVETER HAND Hospital Encounter [facility] [address] [place] [address] Tristan Smith MD Discharge Disposition: Home or Self Care (Routine Discharge) 06/06/2025 Travel 06/04/2025 10:30 AM RIVETER HAND - 06/04/2025 11:59 PM RIVETER HAND Hospital Encounter [facility] [address] [place] [address] Tristan Smith MD Discharge Disposition: Home or Self Care (Routine Discharge) 06/04/2025 Travel 05/26/2025 10:24 AM RIVETER HAND - 05/26/2025 11:59 PM RIVETER HAND Hospital Encounter [facility] [address] [place] [address] Tristan Smith MD Discharge Disposition: Home or Self Care (Routine Discharge) 05/26/2025 Travel 05/23/2025 10:28 AM RIVETER HAND - 05/23/2025 11:59 PM RIVETER HAND Hospital Encounter [facility] [address] [place] [address] [place] [address] Tristan Smith MD Discharge Disposition: Home or Self Care (Routine Discharge) 05/23/2025 Travel 05/21/2025 10:25 AM RIVETER HAND - 05/21/2025 11:59 PM RIVETER HAND Hospital Encounter [facility] [address] [place] [address] [place] [address] Tristan Smith MD Discharge Disposition: Home or Self Care (Routine Discharge) 05/21/2025 Travel 05/19/2025 10:30 AM RIVETER HAND - 05/19/2025 11:59 PM RIVETER HAND Hospital Encounter [facility] [address] [place] [address] [place] [address] Tristan Smith MD Discharge Disposition: Home or Self Care (Routine Discharge) 05/19/2025 Travel 05/16/2025 10:25 AM RIVETER HAND - 05/16/2025 11:59 PM RIVETER HAND Hospital Encounter [facility] [address] [place] [address] [place] [address] Tristan Smith MD Discharge Disposition: Home or Self Care (Routine Discharge) 05/16/2025 Orders Only [facility] [address] [place] [address] Tristan Smith MD 05/16/2025 Travel 05/14/2025 10:26 AM RIVETER HAND - 05/14/2025 11:59 PM RIVETER HAND Hospital Encounter [facility] [address] [place] [address] [place] [address] Tristan Smith MD Discharge Disposition: Home or Self Care (Routine Discharge) 05/14/2025 [facility] [address] [place] [address] Tristan Smith MD Problem 05/14/2025 Travel 05/12/2025 10:55 AM RIVETER HAND - 05/12/2025 11:59 PM RIVETER HAND Hospital Encounter [facility] [address] [place] [address] Tristan Smith MD Discharge Disposition: Home or Self Care (Routine Discharge) 05/12/2025 Travel 05/07/2025 10:40 AM RIVETER HAND - 05/07/2025 11:59 PM RIVETER HAND Hospital Encounter [facility] [address] [place] [address] Tristan Smith MD Discharge Disposition: Home or Self Care (Routine Discharge) 05/07/2025 Travel 04/21/2025 Telephone [facility] [address] [place] [facility] [place] [address] Tristan Smith MD Cardiac Rehab (SET) 04/21/2025 Telephone [facility] [address] [place] [place] [address] Tristan Smith MD Appointment Request 04/15/2025 3:30 PM CDT Office Visit [facility] [address] [place] [address] Tristan Smith MD Peripheral Vascular Disease; Follow Up; Hyperlipidemia 04/15/2025 2:25 PM CDT - 04/15/2025 11:59 PM CDT Hospital Encounter [facility] [address] [place] [address] Tristan Smith MD Discharge Disposition: Home or Self Care (Routine Discharge) 04/15/2025 Travel 04/14/2025 Telephone [facility] [address] [place] [place] [address] Tristan Smith MD Appointment Request 04/04/2025 Telephone [facility] [address] [place] [place] [address] Tristan Smith MD Refill Request 04/03/2025 7:28 AM CDT - 04/03/2025 4:18 PM CDT Hospital Encounter [facility] [address] [place] [address] Tristan Smith MD Discharge Disposition: Home or Self Care (Routine Discharge) 04/03/2025 Travel 04/01/2025 8:55 AM CDT - 04/01/2025 11:59 PM CDT Hospital Encounter [facility] [address] [place] [address] Tristan Smith MD Discharge Disposition: Home or Self Care (Routine Discharge) 04/01/2025 Travel 03/31/2025 Prep for Procedure [facility] [address] [place] [address] Tristan Smith MD 03/19/2025 Telephone [facility] [address] [place] [address] Tristan Smith MD Schedule Procedure from Last 3 Months Family History Medical [...] st Contact Info) Description 06/20/2025 10:30 AM RIVETER HAND Appointment [facility] [place] [address] Tristan Smith MD [address], [address] [address] 06/23/2025 10:30 AM RIVETER HAND Appointment [facility] [place] [address] Tristan Smith MD [address], [address] [address] 06/25/2025 10:30 AM RIVETER HAND Appointment [facility] [place] [address] Tristan Smith MD [address], [address] [address] 06/27/2025 10:30 AM RIVETER HAND Appointment [facility] [place] [address] Tristan Smith MD [address], [address] [address] 06/30/2025 10:30 AM RIVETER HAND Appointment [facility] [place] [address] Tristan Smith MD [address], [address] [address] 07/02/2025 10:30 AM RIVETER HAND Appointment [facility] [address] [place] [address] Tristan Smith MD [address], [address] [address] 07/04/2025 10:30 AM RIVETER HAND Appointment [facility] [place] [address] Tristan mSith MD [address], [address] [address] 07/07/2025 10:30 AM RIVETER HAND Appointment [facility] [place] [address] Tristan Smith MD [address], [address] [address] 07/09/2025 10:30 AM RIVETER HAND Appointment [facility] [place] [address] Tristan Smith MD [address], [address] [address] 07/11/2025 10:30 AM RIVETER HAND Appointment [facility] [place] [address] Tristan Smith MD [address], [address] [address] 07/14/2025 10:30 AM RIVETER HAND [facility]ment [facility] [place] [address] Tristan Smith MD [address], [address] [address] 07/16/2025 10:30 AM RIVETER HAND Appointment [facility] [place] [address] Tristan Smith MD [address], [address] [address] 07/18/2025 10:30 AM RIVETER HAND Appointment [facility] [place] [address] Tristan Smith MD [address], [address] [address] 07/21/2025 10:30 AM RIVETER HAND Appointment [facility] [place] [address] Tristan Smith MD [address], [address] [address] 07/23/2025 10:30 AM RIVETER HAND Appointment [facility] [place] [address] Tristan Smith MD [address], [address] [address] 07/25/2025 10:30 AM RIVETER HAND Appointment [facility] [place] [address] Tristan Smith MD [address], [address] [address] 07/28/2025 10:30 AM RIVETER HAND Appointment [facility] [place] [address] Tristan Smith MD [address], [address] [address] 07/30/2025 10:30 AM RIVETER HAND Appointment [facility] [address] [place] [address] [place] [address] Tristan Smith MD [address] [facility], [address] [address] 08/01/2025 10:30 AM RIVETER HAND Appointment [facility] [address] [place] [address] [place] [address] Tristan Smith MD [address] [place] [address] 08/04/2025 10:30 AM RIVETER HAND Appointment [facility] [address] [place], [place] [address] [address] Tristan Smith MD [address] [place] [address] 08/26/2025 11:00 AM RIVETER HAND Office Visit [facility] [place] [address] Tristan Smith MD [address] [place] [address] Health Maintenance Due Date Last Done Comments [...] (peripheral artery disease) Coronary artery disease involving ivan[place] bay coronary artery of [place] heart without angina pectoris HC CBC W/O DIFF Routine 04/01/2025 9:11 AM CDT PAD (peripheral artery disease) Coronary artery disease involving [place] coronary artery of [place] heart without angina pectoris LIPID PANEL Routine 11/19/2004 11:02 AM CDT from Last 3 Months or Most Recently Relevant to Health Maintenance Results * USV MARIELLE DUPLEX LOW EXT RT (04/15/2025 3:06 PM CDT) Anatomical Region Laterality Modality Extremity Ultrasound 04/15/2025 2:37 PM CDT Narrative 04/18/2025 1:55 PM CDT Outreach Venous Duplex Scan Lower Extremity Vascular Report Pat.Name: Sergey Nava Pat.ID: [id number] .Date: 04/15/2025 Refer.MD: Vincent, [facility] Exam Time: 2:37:00 PM Study Type:OUTREACH VENOUS DUPLEX SCAN LOWER EXTREMITY Height: 62 in Age: 8 1935,89Y Sex: F Sonogrphr: Hw Pat. Stat.:Outpatient CPT - 4: 28683 Venous Duplex LE/UE Reason for Study:Pain and swelling of right knee, Localized edema, R/O DVT Procedures: Study performed at [facility], [place], [place] and interpreted by [facility]. LE Venous - Right ++++++++++++++++++++++++++++++++++++ [...] patent. <Electronic Signature> 04/18/2025 01:55 PM Tristan Smith M.D. Procedure Note Tristna Smith MD - 04/18/2025 [facility] Venous Duplex Scan Lower Extremity Vascular Report Pat.Name: Sergey Nava Pat.ID: [id number] .Date: 04/15/2025 Refer.MD: [facility] Exam Time: 2:37:00 PM Study Type[facility] VENOUS DUPLEX SCAN LOWER EXTREMITY Height: 62 in Age: 8 1935,89Y Sex: F Sonogrphr: Hw Pat. Stat.:Outpatient CPT - 4: 14022 Venous Duplex LE/UE Reason for Study:Pain and swelling of right knee, Localized edema, R/O DVT Procedures: Study performed at [place], [place] and interpreted by [facility]. LE Venous - Right ++++++++++++++++++++++++++++++++++++ [...] patent. <Electronic Signature> 04/18/2025 01:55 PM Tristan Smith M.D. Tristan Smith MD [facility] Final Result * (ABNORMAL) POCT ACTIVATED CLOTTING TIME - ISTAT DOCKED DEVICE (04/03/2025 12:49 PM CDT) Only the most recent of5 resultswithin the time period is included. ACTIVATED CLOTTING TIME (ACT HMT OR LMT) 199(H) 74 - 137 SEC 04/03/2025 12:51 PM CDT [facility] 04/03/2025 12:4 9 PM CDT us Tristan Smith MD POCT ORDERABLES - DEVICE Fin al Result [facility] [address] [place] [address], [place] [phone] [id number] * REVASCULARIZATION, ENDOVASCULAR, OPEN OR PERCT (04/03/2025 11:14 AM CDT) Narrative Procedure Note Tristan Smith MD - 04/03/2025 11:14 AM CDT PROCEDURE NOTE: Indication-PAD Procedures- Ultrasound-guided access of the left common femoral artery Left common femoral artery angiogram Aortoiliac angiogram Selective right lower extremity angiogram Shockwave balloon lithotripsy of the right SFA Drug-coated balloon angioplasty of the right SFA Moderate sedation I performed moderate sedation using Versed and fentanyl. I supervised anddirected R.N. who assisted in monitoring patient's level of [...] was free of any significantdisease. A 6 Portuguese 45 cm sheath was placed over the [...] with patient/daughter Follow-up in clinic us Tristan Smith MD OTHER Final Result * XA PERIPHERAL INTERVENTION (04/03/2025 10:59 AM CDT) Anatomical Region Laterality Modality Chest, Abdomen, Renal, Extremity Corporate Director Of Human Resources 04/03/2025 9:30 AM CDT us Tristan Smith MD [employer]TER Final Result * ECG 12 lead (04/03/2025 8:19 AM CDT) 04/03/2025 8:19 AM CDT Narrative 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: As : 1935 Requested By: TRISTAN SMITH Order Number: [id number] Reading : Tristan Smith Measurements Intervals [place] Rate: 57 P: 59 NM: 169 QRS: 58 QRSD: 75 T: 106 QT: 413 QTc: 402 Interpretive Statements SINUS BRADYCARDIA LOW QRS VOLTAGE IN PRECORDIAL LEADS [QRS DEFLECTION < 1.0 mV IN CHEST LEADS] NONSPECIFIC T-WAVE ABNORMALITY Procedure Note Tristan Smith MD - 04/03/2025 [place] [address] [place] [address] Test Date: 2025-04-03 Pat Name: SERGEY NAVA Department: 1 Room: [address] Gender: Female 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 Floor Team Leader: As : 1935 Requested By: TRISTAN SMITH Order Number: [id number] Reading : Tristan Smith Measurements Intervals [place] Rate: 57 P: 59 NM: 169 QRS: 58 QRSD: 75 T: 106 QT: 413 QTc: 402 Interpretive Statements SINUS BRADYCARDIA LOW QRS VOLTAGE IN PRECORDIAL LEADS [QRS DEFLECTION < 1.0 mV IN CHESTLEADS] NONSPECIFIC T-WAVE ABNORMALITY Tristan Smith MD ECG ORDERABLES Final Result [facility] * (ABNORMAL) BASIC METABOLIC PANEL (04/01/2025 9:11 AM CDT) SODIUM S/P/B 141 136 - 145 MMOL/L 04/01/2025 9:26 AM CDT [facility] POTASSIUM S/P/B 4.2 3.5 - 5.1 MMOL/L 04/01/2025 9:26 AM CDT [facility] CHLORIDE S/P/B 106 98 - 107 MMOL/L 04/01/2025 9:26 AM CDT [facility] CO2 25.8 21.0 - 32.0 MMOL/L 04/01/2025 9:26 AM CDT [facility] GLUCOSE 97 70 - 99 MG/DL 04/01/2025 9:26 AM T [facility] Comment: FASTING GLUCOSE 100 TO 125 MG/DL IS CONSISTENT WITH IMPAIRED FASTING GLUCOSE. FASTING GLUCOSE >125 MG/DL IS CONSISTENT WITH DIABETES. RANDOM GLUCOSE >200 MG/DL WITH HYPERGLYCEMIC SYMPTOMS IS CONSISTENT WITH DIABETES. PER ADA GUIDELINES BUN 14 6 - 24 MG/DL 04/01/2025 9:26 AM CDT [facility] CREATININE S/P/B 1.19(H) 0.55 - 1.02 MG/DL 04/01/2025 9:26 AM CDT [facility] CALCIUM S/P/B 9.4 8.4 - 10.5 MG/DL 04/01/2025 9:26 AM CDT [facility] ANION GAP 9.2 5.0 - 15.0 MMOL/L 04/01/2025 9:26 AM CDT [facility] OSMOLALITY (CALC) 292 MOSM/KG 025 9:26 AM CDT [facility] Comment:REFERENCE RANGE NOT ESTABLISHED GFR ESTIMATE 44(L) >89 ML/MIN/1. 73 M2 04/01/2025 9:26 AM CDT [facility] GFR NOTES GFR REFERENCE S: 04/01/2025 9:26 AM CDT [facility] Comment: THE ESTIMATED GFR IS [...] m2 04/01/2025 9:11 AM CDT us Tristan Smith MD LABORATORY Final Result [facility] [address] [place] [address], * (ABNORMAL) CBC, AUTO, NO DIFF (04/01/2025 9:11 AM CDT) WBC 8.36 4.00 - 10.80 x10'3/uL 04/01/2025 9:18 AM CDT [facility] RBC 4.41 4.10 - 5.40 x10'6/uL 04/01/2025 9:18 AM CDT [facility] HGB 13.2 12.0 - 16.0 G/DL 04/01/2025 9:18 AM CDT [facility] HCT 40.9 36.0 - 47.0 % 04/01/2025 9:18 AM CDT [facility] MCV 92.7 78.0 - 100.0 FL 04/01/2025 9:18 AM CDT [facility] MCH 29.9 27.0 - 31.0 PG 04/01/2025 9:18 AM CDT [facility] MCHC 32.3(L) 33.0 - 36.0 G/DL 04/01/2025 9:18 AM CDT [facility] RDW 13.6 11.5 - 14.5 % 04/01/2025 9:18 AM CDT [facility] PLT 231 150 - 350 x10'3/uL 04/01/2025 9:18 AM CDT [facility] MPV 10.5(H) 7.4 - 10.4 FL 04/01/2025 9:18 AM CDT [facility] 04/01/2025 9:11 AM CDT Tristan Smith MD LABORATORY Final Result [facility] [address] [place] [address], * LIPID PANEL (11/19/2004 11:02 AM CDT) [...] Recently Relevant to Health Maintenance Insurance MEDICARE [facility] Care Teams Casting Repairer Relationship Specialty Start Date End Date Cisco Liz DO [address] [place] [address] PCP - General FAMILY PRACTICE 04/18/23 Tristan Smith MD [address] [facility] [address] [place] [address] Physician INTERVENTIONAL CARDIOLOGY 10/04/24
--- OUTSIDE RECORDS SUMMARY | 2025-06-18 18:06 | XMS_ITS | Encounter Summary ---
Author Organization [facility] Address [address] [place] [address] Care Team Providers Care Ram Press Operator Name Role Phone Cisco Liz DO Primary Care Provider [phone] Tristan Smith MD Unavailable [phone] Reason for Visit * Reason Onset Date Comments Surgical Clearance 06/12/2025 Encounter Details Date Type Department Care Team ([facility] Contact Info) Description 06/12/2025 Telephone [facility] [address] [place] [address] Tristan Smith MD [address] [facility] [address] [address] Surgical Clearance Social History Tobacco Use Types Packs/Day Years [...] on file documented as of this encounter Progress Notes * Raven Gilliam RN - 06/18/2025 8:[address] Smith ok'd the colonoscopy. Forms filled out and sent back to [facility] along with last office visit, echo, and procedure report. TH SERVICES RN * Raven Gilliam RN - 06/16/2025 10:22 AM CST Liya from [place] called. Anesthesia is concerned regarding this patient and the fact that she was recently admitted for NICOLASA related to dehydration, and due to her vascular issues. They want to know if after the procedure you did, you are comfortable with her having colonoscopy there, or if you think it would need to be here where you can follow if any issues. TH SERVICES RN * Fiorella Molina - 06/12/2025 2:34 PM CST Received request from [facility] for Cardiac Clearance - forms given to nurse for further evaluation TH SERVICES RN documented in this encounter Plan of Treatment Upcoming Encounters Date Type Department Care Team (Late st Contact Info) Description 06/20/2025 10:30 AM HEALTH SERVICES RN Appointment [facility] [place] [address] Tristan Smith MD [address] [place] [address], [address] [address] 06/23/2025 10:30 AM HEALTH SERVICES RN [facility]ment [facility] [place] [address] Tristan Smith MD [facility] [address], [address] [address] 06/25/2025 10:30 AM HEALTH SERVICES RN [facility] [place] [address] Tristan Smith MD [facility] [address], [address] [address] 06/27/2025 10:30 AM HEALTH SERVICES RN App[facility]ment [facility] [address] [place] [address] Tristan Smith MD [address], [address] [address] 06/30/2025 10:30 AM HEALTH SERVICES RN Appointment [facility] [place] [address] Tristan Smith MD [address], [address] [address] 07/02/2025 10:30 AM HEALTH SERVICES RN Appointment [facility] [place] [address] Tristan Smith MD [address], [address] [address] 07/04/2025 10:30 AM HEALTH SERVICES RN Appointment [facility] [place] [address] Tristan Smith MD [address], [address] [address] 07/07/2025 10:30 AM HEALTH SERVICES RN Appointment [facility] [place] [address] Tristan Smith MD [address], [address] [address] 07/09/2025 10:30 AM HEALTH SERVICES RN Appointment [facility] [place] [address] Tristan Smith MD [address], [address] [address] 07/11/2025 10:30 AM HEALTH SERVICES RN Appointment [facility] [address] [place] [address] Tristan Smith MD [address], [address] [address] 07/14/2025 10:30 AM HEALTH SERVICES RN Appointment [facility] [address] [place] [address] Tristan Smith MD [address], [address] [address] 07/16/2025 10:30 AM HEALTH SERVICES RN Appointment [facility] [address] [place] [address] Tristan Smith MD [facility] [address], [address] [address] 07/18/2025 10:30 AM HEALTH SERVICES RN Appointment [facility] [place] [address] Tristan Smith MD [address], [address] [address] 07/21/2025 10:30 AM HEALTH SERVICES RN Appointment [facility] [place] [address] Tristan Smith MD [address], [address] [address] 07/23/2025 10:30 AM HEALTH SERVICES RN Appointment [facility] [address] [place] [address] Tristan Smith MD [address], [address] [address] 07/25/2025 10:30 AM HEALTH SERVICES RN Appointment [facility] [place] [address] Tristan Smith MD [address], [address] [address] 07/28/2025 10:30 AM HEALTH SERVICES RN Appointment [facility] [place] [address] Tristan Smith MD [address], [address] [address] 07/30/2025 10:30 AM HEALTH SERVICES RN Appointment [facility] [place] [address] Tristan Smith MD [facility] [address], [address] [address] 08/01/2025 10:30 AM HEALTH SERVICES RN Appointment [facility] [address] Tristan Smith MD [address], [address] [address] 08/04/2025 10:30 AM HEALTH SERVICES RN Appointment [facility] [place] [place] [address] Tristan Smith MD [address], [address] [address] 08/26/2025 11:00 AM HEALTH SERVICES RN Office Visit [facility] [address] Tristan Smith MD [address], [address] [address] documented as of this encounter Visit Diagnoses Not on filedocumented in this encounter Care Teams Ram Press Operator Relationship Specialty Start Date End Date Cisco Liz DO [address] [place] [address] PCP - General FAMILY PRACTICE 04/18/23 Tristan Smith MD [address] [address] Physician INTERVENTIONAL CARDIOLOGY 10/04/24 documented as of this encounter
== END 2025-06-18 15:50 | disposition home or self-care (01) ==
LOC: CHSLAB 15:50
PROVIDERS: PCP Nurse Practitioner Family; Visit Provider Nurse Practitioner Family
DX: D50.9 Iron deficiency anemia, unspecified (principal); I10 Essential (primary) hypertension; N17.9 Acute kidney failure, unspecified
CPT/HCPCS: 36415; 80053; 82728; 83540; 83550; 85025

== ENCOUNTER 2025-06-23 08:19 | Outpatient (CLI) | payer MEDICARE, SELFPAY ==
--- OUTSIDE RECORDS SUMMARY | 2025-06-23 08:36 | XMS_ITS | Patient Health Record ---
Author Organization [facility] Address [address] [place], [place] [id number] Care Team Providers Care Regional Education Manager Name Role Phone AMANDA Resendez Unavailable [phone] Carter Acharya Unavailable Unavailable Reason For Referral [...] Date Coverage End Date Medicare Part B [place] [address] [place] [address] [id number] SERGEY NAVA Self - patient is the insured [facility] Insurance [address] [address] [place] [address] [id number] SERGEY NAVA Self - patient is the insured
--- OUTSIDE RECORDS SUMMARY | 2025-06-23 08:36 | XMS_ITS | Clinical Summary ---
Author Organization [facility] Address [address] [place] [address] Care Team Providers Care Boom Truck Driver Name Role Phone Cisco Liz DO Primary Care Provider [phone] Tristan Mendoza MD Unavailable [phone] Allergies No known active allergies Medications amLODIPine [...] by mouth daily. 5 Active vitamin B-12 (CYANOCOBALAMIN) 500 MCG tablet Take 1 tablet (500 mcg total) by mouth daily. Active magnesium oxide (MAG-OX) 250 MG tablet Take 1 tablet (250 mg total) by mouth daily. Active clopidogrel (PLAVIX) 75 MG tablet Take 1 tablet (75 mg total) by mouth daily. 90 tablet 3 5 04/04/20 Active NICOTINE TRANSDERMAL SYSTEM TD Place 1 Application onto the skin once a week. Active cilostazol (PLETAL) 100 MG tablet TAKE 1/2 TABLET BY MOUTH TWICE A DAY 60 tablet 5 Active Active Problems Problem Noted Date Diagnosed Date Coronary artery disease invo lving samish coronary artery of samish heart without angina pectoris 12/17/2024 Primary hypertension 05/10/2023 PAD (peripheral artery disease) 05/05/2023 Hyperlipidemia, unspecified hyperlipidemia type 05/05/2023 Other secondary hypertension 05/05/2023 Encounters Date Type Department Care Team Description 06/12/2025 Telephone [place] [facility] [address] [place] [address] Tristan Mendoza MD Surgical Clearance 06/06/2025 10:27 AM ANCILLARY SERVICES MANAGER THERAPY - 06/06/2025 11:59 PM ANCILLARY SERVICES MANAGER THERAPY Hospital Encounter [facility] [address] [place] [address] Tristan Mendoza MD Discharge Disposition: Home or Self Care (Routine Discharge) 06/06/2025 Travel 06/04/2025 10:30 AM ANCILLARY SERVICES MANAGER THERAPY - 06/04/2025 11:59 PM ANCILLARY SERVICES MANAGER THERAPY Hospital Encounter [facility] [address] [place] [address] Tristan Mendoza MD Discharge Disposition: Home or Self Care (Routine Discharge) 06/04/2025 Travel 05/26/2025 10:24 AM ANCILLARY SERVICES MANAGER THERAPY - 05/26/2025 11:59 PM ANCILLARY SERVICES MANAGER THERAPY Hospital Encounter [facility] [address] [place] [address] Tristan Mendoza MD Discharge Disposition: Home or Self Care (Routine Discharge) 05/26/2025 Travel 05/23/2025 10:28 AM ANCILLARY SERVICES MANAGER THERAPY - 05/23/2025 11:59 PM ANCILLARY SERVICES MANAGER THERAPY Hospital Encounter [facility] [address] [place] [address] Tristan Mendoza MD Discharge Disposition: Home or Self Care (Routine Discharge) 05/23/2025 Travel 05/21/2025 10:25 AM ANCILLARY SERVICES MANAGER THERAPY - 05/21/2025 11:59 PM ANCILLARY SERVICES MANAGER THERAPY Hospital Encounter [facility] [address] [place] [address] [place] [address] Tristan Mendoza MD Discharge Disposition: Home or Self Care (Routine Discharge) 05/21/2025 Travel 05/19/2025 10:30 AM ANCILLARY SERVICES MANAGER THERAPY - 05/19/2025 11:59 PM ANCILLARY SERVICES MANAGER THERAPY Hospital Encounter [facility] [address] [place] [address] [place] [address] Tristan Mendoza MD Discharge Disposition: Home or Self Care (Routine Discharge) 05/19/2025 Travel 05/16/2025 10:25 AM ANCILLARY SERVICES MANAGER THERAPY - 05/16/2025 11:59 PM ANCILLARY SERVICES MANAGER THERAPY Hospital Encounter [facility] [address] [place] [address] [place] [address] Tristan Mendoza MD Discharge Disposition: Home or Self Care (Routine Discharge) 05/16/2025 Orders Only [facility] [address] [place] [address] Tristan Mendoza MD 05/16/2025 Travel 05/14/2025 10:26 AM ANCILLARY SERVICES MANAGER THERAPY - 05/14/2025 11:59 PM ANCILLARY SERVICES MANAGER THERAPY Hospital Encounter [facility] [address] [place] [address] [place] [address] Tristan Mendoza MD Discharge Disposition: Home or Self Care (Routine Discharge) 05/14/2025 [facility] [address] [place] [address] Tristan Mendoza MD Problem 05/14/2025 Travel 05/12/2025 10:55 AM ANCILLARY SERVICES MANAGER THERAPY - 05/12/2025 11:59 PM ANCILLARY SERVICES MANAGER THERAPY Hospital Encounter [facility] [address] [place] [address] [place] [address] Tristan Mendoza MD Discharge Disposition: Home or Self Care (Routine Discharge) 05/12/2025 Travel 05/07/2025 10:40 AM ANCILLARY SERVICES MANAGER THERAPY - 05/07/2025 11:59 PM ANCILLARY SERVICES MANAGER THERAPY Hospital Encounter [facility] [address] [place] [address] Tristan Mendoza MD Discharge Disposition: Home or Self Care (Routine Discharge) 05/07/2025 Travel 04/21/2025 Telephone [facility] [address] [place] [address] Tristan Mendoza MD Cardiac Rehab (SET) 04/21/2025 Telephone [facility] [address] [place] [address] Tristan Mendoza MD Appointment Request 04/15/2025 3:30 PM CDT Office Visit [facility] [address] [place] [address] Tristan Mendoza MD Peripheral Vascular Disease; Follow Up; Hyperlipidemia 04/15/2025 2:25 PM CDT - 04/15/2025 11:59 PM CDT Hospital Encounter [facility] [address] [place] [address] Tristan Mendoza MD Discharge Disposition: Home or Self Care (Routine Discharge) 04/15/2025 Travel 04/14/2025 Telephone [facility] [address] [place] [address] Tristan Mendoza MD Appointment Request 04/04/2025 Telephone [facility] [address] [place] [address] Tristan Mendoza MD Refill Request 04/03/2025 7:28 AM CDT - 04/03/2025 4:18 PM CDT Hospital Encounter [facility] [employer] [facility] [address] [place] [address] Tristan Mendoza MD Discharge Disposition: Home or Self Care (Routine Discharge) 04/03/2025 Travel 04/01/2025 8:55 AM CDT - 04/01/2025 11:59 PM CDT Hospital Encounter [facility] [place] [address] Tristan Mendoza MD Discharge Disposition: Home or Self Care (Routine Discharge) 04/01/2025 Travel 03/31/2025 Prep for Procedure [facility] [place] [address] Tristan Mendoza MD from Last 3 Months Family History Medical [...] Care Team (Late st Contact Info) Description 06/23/2025 10:30 AM ANCILLARY SERVICES MANAGER THERAPY [facility]ointment [facility] [address] [address] Tristan Mendoza MD [address], [address] [address] 06/25/2025 10:30 AM ANCILLARY SERVICES MANAGER THERAPY Appointment [facility] [address] [place] [address] Tristan Mendoza MD [address], [address] [address] 06/27/2025 10:30 AM ANCILLARY SERVICES MANAGER THERAPY Appointment [facility] [place] [address] Tristan Mendoza MD [address], [address] [address] 06/30/2025 10:30 AM ANCILLARY SERVICES MANAGER THERAPY Appointment [facility] [place] [address] Tristan Mendoza MD [address], [address] [address] 07/02/2025 10:30 AM ANCILLARY SERVICES MANAGER THERAPY Appointment [facility] [place] [address] Tristan Mendoza MD [address], [address] [address] 07/04/2025 10:30 AM ANCILLARY SERVICES MANAGER THERAPY Appointment [facility] [place] [address] Tristan Mendoza MD [address], [address] [address] 07/07/2025 10:30 AM ANCILLARY SERVICES MANAGER THERAPY Appointment [facility] [place] [address] Tristan Mendoza MD [address], [address] [address] 07/09/2025 10:30 AM ANCILLARY SERVICES MANAGER THERAPY Appointment [facility] [address] [place] [address] Tristan Mendoza MD [address], [address] [address] 07/11/2025 10:30 AM ANCILLARY SERVICES MANAGER THERAPY Appointment [facility] [place] [address] Tristan Mendoza MD [address], [address] [address] 07/14/2025 10:30 AM ANCILLARY SERVICES MANAGER THERAPY Appointment [facility] [place] [address] Tristan Mendoza MD [address], [address] [address] 07/16/2025 10:30 AM ANCILLARY SERVICES MANAGER THERAPY Appointment [facility] [place] [address] Tristan Mendoza MD [address], [address] [address] 07/18/2025 10:30 AM ANCILLARY SERVICES MANAGER THERAPY Appointment [facility] [place] [address] Tristan Mendoza MD [address], [address] [address] 07/21/2025 10:30 AM ANCILLARY SERVICES MANAGER THERAPY Appointment [facility] [place] [address] Tristan Mendoza MD [address], [address] [address] 07/23/2025 10:30 AM ANCILLARY SERVICES MANAGER THERAPY Appointment [facility] [place] [address] Tristan Mendoza MD [address], [address] [address] 07/25/2025 10:30 AM ANCILLARY SERVICES MANAGER THERAPY Appointment [facility] [place] [address] Tristan Mendoza MD [address], [address] [address] 07/28/2025 10:30 AM ANCILLARY SERVICES MANAGER THERAPY Appointment [facility] [place] [address] Tristan Mendoza MD [address], [address] [address] 07/30/2025 10:30 AM ANCILLARY SERVICES MANAGER THERAPY Appointment [facility] [place] [address] Tristan Mendoza MD [address], [address] [address] 08/01/2025 10:30 AM ANCILLARY SERVICES MANAGER THERAPY Appointment [facility] [place] [address] Tristan Mendoza MD [address], [address] [address] 08/04/2025 10:30 AM ANCILLARY SERVICES MANAGER THERAPY Appointment [facility] [address] [place] [address] Tristan Mendoza MD [address] [facility] [address] [place] [address] 08/26/2025 11:00 AM ANCILLARY SERVICES MANAGER THERAPY Office Visit [facility] [address] [place] [address] Tristan Mendoza MD [address] [facility] [address] [place] [address] Health Maintenance Due Date Last Done Comments [...] (peripheral artery disease) Coronary artery disease involving samish coronary artery of samish heart without angina pectoris HC CBC W/O DIFF Routine 04/01/2025 9:11 AM CDT PAD (peripheral artery disease) Coronary artery disease involving samish coronary artery of samish heart without angina pectoris LIPID PANEL Routine 11/19/2004 11:02 AM CDT from Last 3 Months or Most Recently Relevant to Health Maintenance Results * USV MARIELLE DUPLEX LOW EXT RT (04/15/2025 3:06 PM CDT) Anatomical Region Laterality Modality Extremity Ultrasound 04/15/2025 2:37 PM CDT Narrative 04/18/2025 1:55 PM CDT Outreach Venous Duplex Scan Lower Extremity Vascular Report Pat.Name: Sergey Nava Pat.ID: [id number] .Date: 04/15/2025 [facility] Time: 2:37:00 PM Study Type:OUTREACH VENOUS DUPLEX SCAN LOWER EXTREMITY Height: 62 in Age: 6 1935,89Y Sex: F Sonogrphr: Pat. Stat.:Outpatient CPT - 4: 43066 Venous Duplex LE/UE Reason for Study:Pain and swelling of right knee, Localized edema, R/O DVT Procedures: Study performed at [facility], [place], [place] and interpreted by [facility]. LE Venous - Right ++++++++++++++++++++++++++++++++++++ [...] Procedure Note Tristan Mendoza MD - 04/18/2025 [facility] Venous Duplex Scan Lower Extremity Vascular Report Pat.Name: Sergey Nava Pat.ID: [id number] .Date: 04/15/2025 [facility].MD: [facility] Exam Time: 2:37:00 PM Study Type:OUTREACH VENOUS DUPLEX SCAN LOWER EXTREMITY Height: 62 in Age: 8 1935,89Y Sex: F Sonogrphr: Pat. Stat.:Outpatient CPT - 4: 21700 Venous Duplex LE/UE Reason for Study:Pain and swelling of right knee, Localized edema, R/O DVT Procedures: Study performed at [place], [place] and interpreted by [facility]. LE Venous - Right ++++++++++++++++++++++++++++++++++++ [...] Tristan Mendoza M.D. us Tristan Mendoza MD [facility] Final Result * (ABNORMAL) POCT ACTIVATED CLOTTING TIME - ISTAT DOCKED DEVICE (04/03/2025 12:49 PM CDT) Only the most recent of5 resultswithin the time period is included. ACTIVATED CLOTTING TIME (ACT HMT OR LMT) 199(H) 74 - 137 SEC 04/03/2025 12:51 PM CDT [facility] 04/03/2025 12:4 9 PM CDT us Tristan Mendoza MD POCT ORDERABLES - DEVICE Fin al Result [facility] [address] [place] [address], [place] [phone] [id number] * REVASCULARIZATION, ENDOVASCULAR, OPEN OR PERCT (04/03/2025 [...] was free of any significantdisease. A 6 Finnish 45 cm sheath was placed over the [...] Region Laterality Modality Chest, Abdomen, Renal, Extremity [employer] 04/03/2025 9:30 AM CDT us Tristan Mendoza MD IP LITIGATION ASSOCIATE Final Result * ECG 12 lead (04/03/2025 8:19 AM CDT) 04/03/2025 8:19 AM CDT Narrative [facility] - 04/03/2025 7:08 PM CDT [place] [address] [place] [address] Test Date: 2025-04-03 Pat Name: SERGEY NAVA Department: 1 Room: [address] Gender: Female Respite Care Provider: As : 1935 Requested By: TRISTAN MENDOZA Order Number: [id number] Reading MD: Tristan Mendoza Measurements Intervals Cunningham Rate: 57 P: 59 MN: 169 QRS: 58 QRSD: 75 T: 106 QT: 413 QTc: 402 Interpretive Statements SINUS BRADYCARDIA LOW QRS VOLTAGE IN PRECORDIAL LEADS [QRS DEFLECTION < 1.0 mV IN CHEST LEADS] NONSPECIFIC T-WAVE ABNORMALITY Procedure Note Tristan Mendoza MD - 04/03/2025 [facility] [address] [place] [address] Test Date: 2025-04-03 Pat Name: SERGEY NVAA Department: 1 Room: [address] Gender: Female Respite Care Provider: As : 1935 Requested By: TRISTAN MENDOZA Order Number: [id number] Reading MD: Tristan Mendoza Measurements Intervals Cunningham Rate: 57 P: 59 MN: 169 QRS: 58 QRSD: 75 T: 106 QT: 413 QTc: 402 Interpretive Statements SINUS BRADYCARDIA LOW QRS VOLTAGE IN PRECORDIAL LEADS [QRS DEFLECTION < 1.0 mV IN CHESTLEADS] NONSPECIFIC T-WAVE ABNORMALITY Tristan Mendoza MD ECG ORDERABLES Final Result [facility] * (ABNORMAL) BASIC METABOLIC PANEL (04/01/2025 9:11 AM CDT) SODIUM S/P/B 141 136 - 145 MMOL/L 04/01/2025 9:26 AM CDT [facility] POTASSIUM S/P/B 4.2 3.5 - 5.1 MMOL/L 04/01/2025 9:26 AM [facility] CHLORIDE S/P/B 106 98 - 107 MMOL/L 04/01/2025 9:26 AM [facility] CO2 25.8 21.0 - 32.0 MMOL/L 04/01/2025 9:26 AM [facility] GLUCOSE 97 70 - 99 MG/DL 04/01/2025 9:26 AM [facility] Comment: FASTING GLUCOSE 100 TO 125 MG/DL IS CONSISTENT WITH IMPAIRED FASTING GLUCOSE. FASTING GLUCOSE >125 MG/DL IS CONSISTENT WITH DIABETES. RANDOM GLUCOSE >200 MG/DL WITH HYPERGLYCEMIC SYMPTOMS IS CONSISTENT WITH DIABETES. PER ADA GUIDELINES BUN 14 6 - 24 MG/DL 04/01/2025 9:26 AM [facility] CREATININE S/P/B 1.19(H) 0.55 - 1.02 MG/DL 04/01/2025 9:26 AM [facility] CALCIUM S/P/B 9.4 8.4 - 10.5 MG/DL 04/01/2025 9:26 AM [facility] ANION GAP 9.2 5.0 - 15.0 MMOL/L 04/01/2025 9:26 AM [facility] OSMOLALITY (CALC) 292 MOSM/KG 025 9:26 AM [facility] Comment:REFERENCE RANGE NOT ESTABLISHED GFR ESTIMATE 44(L) >89 ML/MIN/1. 73 M2 04/01/2025 9:26 AM [facility] GFR NOTES GFR REFERENCE S: 04/01/2025 9:26 AM [facility] Comment: THE ESTIMATED GFR [...] <15 ml/min/1.73 m2 04/01/2025 9:11 AM CDT Tristan Mendoza MD LABORATORY Final Result [facility] [address] [place] [address], * (ABNORMAL) CBC, AUTO, NO DIFF (04/01/2025 9:11 AM CDT) WBC 8.36 4.00 - 10.80 x10'3/uL 04/01/2025 9:18 AM CDT [facility] RBC 4.41 4.10 - 5.40 x10'6/uL 04/01/2025 9:18 AM CDT [facility] HGB 13.2 12.0 - 16.0 G/DL 04/01/2025 9:18 AM CDT [facility] HCT 40.9 36.0 - 47.0 % 04/01/2025 9:18 AM CDT [facility] MCV 92.7 78.0 - 100.0 FL 04/01/2025 9:18 AM CDT [facility] MCH 29.9 27.0 - 31.0 PG 04/01/2025 9:18 AM CDT [facility] MCHC 32.3(L) 33.0 - 36.0 G/DL 04/01/2025 9:18 AM CDT [facility] RDW 13.6 11.5 - 14.5 % 04/01/2025 9:18 AM CDT [facility] PLT 231 150 - 350 x10'3/uL 04/01/2025 9:18 AM CDT [facility] MPV 10.5(H) 7.4 - 10.4 FL 04/01/2025 9:18 AM CDT [facility] 04/01/2025 9:11 AM CDT us Tristan Mendoza MD LABORATORY Final Result [facility] [address] [place] [address], * LIPID PANEL (11/19/2004 11:02 AM CDT) [...] Recently Relevant to Health Maintenance Insurance MEDICARE [facility] Care Teams Boom Truck Driver Relationship Specialty Start Date End Date Cisco Liz DO [address] [place] [address] PCP - General FAMILY PRACTICE 04/18/23 Tristan Mendoza MD [address] [facility] [address] [place] [address] Physician INTERVENTIONAL CARDIOLOGY 10/04/24
--- OUTSIDE RECORDS SUMMARY | 2025-06-23 08:36 | XMS_ITS | Clinical Summary ---
Author Organization [facility] Jimbo garcia Que Address [address] [place] [address] Care Team Providers Care Director Of Grants Name Role Phone Cisco Liz DO Primary Care Provider [phone] Allergies No known active allergies Medications atenoloL [...] st Contact Info) Description 07/07/2025 11:00 AM SUPERVISOR SOLDER MAKING Office Visit [facility] Oncology and Hematology - [place] [address] [facility] [address] [place] [address] Kamari Hansen MD [address] [facility] [address] [place] [address] Health Maintenance Due Date Last Done Comments DTAP/TDAP/TD VACCINES (1 - Tdap) 1954 PNEUMOCOCCAL VACCINE 50+ YEARS (1 of 1 - PCV) 12/05/18 88 ZOSTER VACCINE (1 of 2) 12/06/1987 OSTEOPOROSIS SCREENING 2002 RSV VACCINE (60+ or ) (1 - 1-dose 75+ series) 2012 INFLUENZA VACCINE (#1) 2025 Insurance [facility] [place] [address] MEDICARE PART A AND B Care Teams Director Of Grants Relationship Specialty Start Date End Date Cisco Liz DO [address] [place] [address] PCP - General Family Practice 11/22/22
--- OUTSIDE RECORDS SUMMARY | 2025-06-23 08:36 | XMS_ITS | Encounter Summary ---
Author Organization [facility] Address [address] [place] [address] Care Team Providers Care Reliability Technicians Name Role Phone Cisco Liz DO Primary Care Provider [phone] Tristan Smith MD Unavailable [phone] Encounter Details Date Type Department Care Team (Late Contact Info) Description 03/31/2025 Prep for Procedure [facility] eld [address] [place] [address] Tristan Smith MD [address] [place] [address] Social History Tobacco Use Types [...] Department Care Team (Late Contact Info) Description 06/23/2025 10:30 AM SURGICAL DRESSING MAKER Appointment [facility] [address] [place] [address] Tristan Smith MD [address] [facility] [address] [place] [address] 06/25/2025 10:30 AM SURGICAL DRESSING MAKER Appointment [facility] [address] [place] [address] Tristan Smith MD [address], [address] [address] 06/27/2025 10:30 AM SURGICAL DRESSING MAKER Appointment [facility] [place] [address] Tristan Smith MD [address], [address] [address] 06/30/2025 10:30 AM SURGICAL DRESSING MAKER Appointment [facility] [place] [address] Tristan Smith MD [address] [address] 07/02/2025 10:30 AM SURGICAL DRESSING MAKER Appointment [facility] [place] [address] Tristan Smith MD [address] [address] 07/04/2025 10:30 AM SURGICAL DRESSING MAKER Appointment [facility] [place] [address] Tristan Smith MD [address], [address] [address] 07/07/2025 10:30 AM SURGICAL DRESSING MAKER Appointment [facility] [place] [address] Tristan Smith MD [address] [address] 07/09/2025 10:30 AM SURGICAL DRESSING MAKER Appointment [facility] [address] [place] [address] Tristan Smith MD [address], [address] [address] 07/11/2025 10:30 AM SURGICAL DRESSING MAKER Appointment [facility] [place] [address] Tristan Smith MD [address] [address] 07/14/2025 10:30 AM SURGICAL DRESSING MAKER Appointment [facility] [place] [address] Tristan Smith MD [address] [address] 07/16/2025 10:30 AM SURGICAL DRESSING MAKER Appointment [facility] [place] [address] Tristan Smith MD [address] [address] 07/18/2025 10:30 AM SURGICAL DRESSING MAKER Appointment [facility] [place] [address] Tristan Smith MD [address] [address] 07/21/2025 10:30 AM SURGICAL DRESSING MAKER Appointment [facility] [place] [address] Tristan Smith MD [address] [address] 07/23/2025 10:30 AM SURGICAL DRESSING MAKER Appointment [facility] [address] [place] [address] Tristan Smith MD [address] [address] 07/25/2025 10:30 AM SURGICAL DRESSING MAKER Appointment [facility] [address] [place] [address] Tristan Smith MD [address] [address] 07/28/2025 10:30 AM SURGICAL DRESSING MAKER Appointment [facility] [address] [place] [address] Tristan Smith MD [address] [address] 07/30/2025 10:30 AM SURGICAL DRESSING MAKER Appointment [facility] [address] [place] [address] Tristan Smith MD [address] [address] 08/01/2025 10:30 AM SURGICAL DRESSING MAKER Appointment [facility] [address] [place] [address] Tristan Smith MD [address] [address] 08/04/2025 10:30 AM SURGICAL DRESSING MAKER Appointment [facility] [address] [place] [address] Tristan Smith MD [address], [address] [address] 08/26/2025 11:00 AM SURGICAL DRESSING MAKER Office Visit [facility] [place] [id number] Tristan Smith MD [address] [facility] [address] [place] [address] documented as of this encounter Visit Diagnoses Not on filedocumented in this encounter Care Teams Reliability Technicians Relationship Specialty Start Date End Date Cisco Liz DO [address] [place] [address] PCP - General FAMILY PRACTICE 04/18/23 Tristan Smith MD [address] [facility] [address] [place] [address] Physician INTERVENTIONAL CARDIOLOGY 10/04/24 documented as of this encounter
[2025-06-23 09:35] LABS: Alanine Aminotransferase 23 U/L (6-35); Albumin Level 4.1 g/dL (3.5-5.1); Alkaline Phosphatase 75 U/L (38-126); Anion Gap 8 mmol/L (4-12); Aspartate Amino Transferase 39 U/L (14-36); Bilirubin,Total 0.3 mg/dL (0.2-1.3); Blood Urea Nitrogen 21 mg/dL (7-17); Calcium 9.5 mg/dL (8.4-10.2); Carbon Dioxide 25 mmol/L (22-30); Chloride 107 mmol/L (98-107); Estimated Glomerular Filt Rate 44; Glucose 116 mg/dL (65-110); Osmolality Calculated 294 mOsm/kg (285-295); Potassium 4.4 mmol/L (3.4-5.0); Sodium 140 mmol/L (137-145); Total Protein 6.5 g/dL (6.3-8.2)
== END 2025-06-23 08:20 | disposition home or self-care (01) ==
LOC: CHSLAB 08:20
PROVIDERS: PCP Nurse Practitioner Family; Visit Provider Nurse Practitioner Family
DX: E87.6 Hypokalemia (principal)
CPT/HCPCS: 36415; 80053